=== PATIENT | female | born 1960 | race Caucasian/White ===

== ENCOUNTER → 2021-03-27 09:12 | Outpatient (BNVA) | payer MEDICARE, SELFPAY | PROVIDERS: Visit Provider Orthopaedic Surgery | DX: M47.896 Other spondylosis, lumbar region (principal); M54.5 Low back pain | CPT/HCPCS: 72110 ==

== ENCOUNTER → 2021-05-09 11:00 | Outpatient (BNVA) | payer MEDICARE, SELFPAY | PROVIDERS: Visit Provider Orthopaedic Surgery | DX: Z01.818 Encounter for other preprocedural examination (principal) | CPT/HCPCS: 87635 ==

== ENCOUNTER → 2021-05-09 | Day surgery (SDC) | payer MEDICARE, SELFPAY ==
[2021-05-09 13:07] VITALS: BMI 34.0
[2021-05-09 13:30] LABS: Anion Gap 12.7 (5-19); Blood Urea Nitrogen 12 mg/dL (8-23); Calcium 8.6 mg/dL (8.5-10.5); Chloride 83 mmol/L (98-107); Glomerular Filtration Rate 125.4 mL/min (90-130); Glucose 93 mg/dL (65-115); Osmolality Calculated 277 mOsm/kg (285-295); Sodium 134 mmol/L (136-145)
[2021-05-09 13:36] LABS: Potassium 2.7 mmol/L (3.5-5.1)
--- NOTE | 2021-05-09 13:36 | P.ANESASSM_ITS ---
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 leone's office has the pulmologist's clearance lettt er Metabolic: Comments: hypokalemic (K+ on 2.7) on furosemide (for leg swelling) - patient informed she needs to call her [place] doctor to get oral supplements Asked if she can go to ER if she's unable to get a perscription. Musc/skel: Musc/skel: Lower Back Pain Anesthetic Plan: ASA status: 3 Risk of > 500 ml blood loss (7ml/kg in children): No PFSH Anesthesia PFSH: Family History Other Cancer Diabetes Social History Smoking and tobacco status: former smoker Alcohol intake: former Marital status: Number of children: 2 service: No History of recent travel: No Data Anesthesia CBC & Chem 7: 05/09/21 12:55 Other Labs: Laboratory Results - last 48 hr 05/09/21 12:55 Anion Gap 12.7 BUN 12 Creatinine 0.5 GFR Calculation 125.4 Glucose 93 Calcium 8.6 Cardiac Studies: No Data to Display
[2021-05-09 13:38] LABS: Carbon Dioxide 41 mmol/L (22-29)
--- NOTE | 2021-05-09 13:50 | SUR.PREOP ---
Anesthesia informed of critical serum potassium and Co2 levels. Doctor Pitts in to evaluate patient.
== END ==
PROVIDERS: Anesthesiology; Visit Provider Orthopaedic Surgery
DX: Z01.818 Encounter for other preprocedural examination (principal)
CPT/HCPCS: 80048

== ENCOUNTER → 2021-08-01 10:12 | Outpatient (BNVA) | payer MEDICARE, SELFPAY | PROVIDERS: Visit Provider Orthopaedic Surgery | DX: Z01.812 Encounter for preprocedural laboratory examination (principal); Z20.822 Contact with and (suspected) exposure to COVID-19 | CPT/HCPCS: 87635 ==

== ENCOUNTER 2021-08-06 17:01 | Inpatient (IN) | payer MEDICARE, SELFPAY ==
[2021-08-01 12:25] VITALS: BMI 35.2
--- NOTE | 2021-08-01 13:00 | ANES.PREANE2 ---
Pre-Anesthetic Assessment Pre-Anesthetic Assessment: Height/Weight: Height 1.63 m Weight 92.986 kg Preop Diagnosis: Back pain Proposed Procedure: Operation Date: 08/06/21 07:00 Proposed Procedures p [id number] PSF 35633, 39219, 31582, 44059,49987 69570, 91597, 05933 M47.26(Not Applicable) - Montez Leone, DO Familial anesthetic complications: none Social: Social History: No alcohol and No tobacco Exam: Pre-Anes Outpt Exam: alert, oriented x 3, clear to auscultation bilaterally and regular rate & rhythm Airway: Cervical ROM: WNL MP: 2 Dentition: Chipped Pulmonary: Pulmonary: COPD Comments: COPD - pulmonlogist cleared her for surgery in may Metabolic: Comments: hypokalemic (K+ on 2.7) on furosemide (for leg swelling) - patient informed she needs to call her [place] doctor to get oral supplements Asked if she can go to ER if she's unable to get a perscription. Musc/skel: Musc/skel: Lower Back Pain Anesthetic Plan: ASA status: 3 Anesthesia: General Risk of > 500 ml blood loss (7ml/kg in children): No PFSH Anesthesia PFSH: Family History Other Cancer Diabetes Social History Smoking and tobacco status: former smoker Alcohol intake: former Marital status: Number of children: 2 service: No History of recent travel: No Data Anesthesia CBC & Chem 7: 08/01/21 12:45 Cardiac Studies: No Data to Display
[2021-08-01 13:11] LABS: Anion Gap 13.6 (5-19); Blood Urea Nitrogen 14 mg/dL (8-23); Calcium 8.8 mg/dL (8.5-10.5); Carbon Dioxide 32 mmol/L (22-29); Chloride 89 mmol/L (98-107); Glomerular Filtration Rate 101.6 mL/min (90-130); Glucose 99 mg/dL (65-115); Osmolality Calculated 273 mOsm/kg (285-295); Potassium 3.6 mmol/L (3.5-5.1); Sodium 131 mmol/L (136-145)
[2021-08-06] VITALS (32 sets, daily range): BP systolic 72–160; BP diastolic 40–126; PULSE 75–111; RESP 16–46; TEMP 36.5–37.2; O2SAT 94–100
--- NOTE | 2021-08-06 | SCC_ITS ---
Procedure Done: 1. T11 - Pelvis fusion 2. T11 - S1 instrumentation 3. Lumbo pelvis fixation (instrumentation) 4. Bilateral L3/4 laminectomy with partial facetectomies and foraminotomies 5. Bilateral L4/5 laminectomy with partial facetectomies and foraminotomies 6. Bilateral L5/S1 laminectomy with partial facetectomies and foraminotomies 55 seconds of fluoroscopic guidance, for a cumulative dose of 208.8 mGy, was provided to Dr. Leone by the radiology department. C-arm images of the lumbar spine were saved for the patient's permanent record. [facility] HOSPITALCasandra
--- NOTE | 2021-08-06 | XR_ITS ---
WS: [id number] Lumbar spine, C-arm fluoroscopy, 08/06/2021 Clinical Data: PLF Comparison: None. Findings: Dr. Leone performed an extensive thoracolumbar posterior fusion. XR/XR lumbar spine 1V [id number] Impression: Thoracolumbar posterior fusion.
[2021-08-06] MEDS: sodium chloride 0.9% 1,000 ML 30 ML IV (06:25)
--- NOTE | 2021-08-06 06:52 | P.HP_ITS ---
Providers/Chief Complaint Chief Complaint: [id number] PSF [id number], 01687, 44118, [id number] 20 History of Present Illness Nova Dobbs is a 60 year old femaleChief Complaint: low back pain Onset: year Duration: year Characteristics: burning,cramping Severity: 10 Location: low back mid back near stimulator placement Radiating symptoms: numbness and tingling, lateral lower extremities into feet. Aggravating factors: everything, laying flat Alleviating factors: oral pain medication with relief for a few hours Neuro deficits: denies incontinence of bowel/bladder, saddle anesthesia. Prior tx: nerve stimulator with relief to left side , epidural injection with short term relief, physical therapy stopped due to pain Review of Systems 2 Narrative: General ROS: negative for weight changes, fever ENT ROS: negative for nasal congestion, drainage or bleeding, sore throat, dysphagia or ear pain Eyes: PERRL Hematological and Lymphatic ROS: negative for swollen glands or abnormal bleeding Endocrine ROS: negative for polyuria/polydpsia or new changes in weight Respiratory ROS: negative for cough, shortness of breath, or wheezing Cardiovascular ROS: negative for chest pain or dyspnea on exertion Gastrointestinal ROS: negative for reflux, abdominal pain, change in bowel habits, or black or bloody stools Musculoskeletal ROS: negative for back pain, neck pain, or joint pain or swelling except for current problem Neurological ROS: negative for TIA or stoke symptoms Skin: no rashes Medications/Allergies Home Medications Medication Instructions Recorded Confirmed Last Taken Type fluoxetine 10 mg capsule 10 mg PO DAILY 03/27/21 08/06/21 08/06/21 05:00 History furosemide 40 mg tablet 40 mg PO DAILY 03/27/21 08/06/21 08/05/21 08:00 History gabapentin 400 mg capsule 400 mg PO TID 03/27/21 08/06/21 08/06/21 05:00 History hydrocodone 10 mg-acetaminophen 10 tab PO BID PRN 03/27/21 08/06/21 08/06/21 05:00 History 325 mg tablet methocarbamol 750 mg tablet 750 mg PO TID PRN 03/27/21 08/06/21 08/06/21 05:00 History ropinirole 4 mg tablet 4 mg PO BID 03/27/21 08/06/21 08/06/21 05:00 History albuterol [Ventolin] See Rx Instructions .ROUTE .COMPLEX 05/09/21 08/06/21 08/06/21 05:00 History metolazone 2.5 mg PO EVERY OTHER DAY 05/09/21 08/06/21 08/06/21 05:00 History estradiol mg 08/01/21 08/06/21 05:00 History fluticasone propion-salmeterol INHALATION 08/01/21 08/06/21 05:00 History [Wixela Inhub] potassium chloride meq PO 08/01/21 08/06/21 05:00 History [id number] Bone growth stimulator #1 ea 08/03/21 Unknown Rx Allergies Allergy/AdvReac Type Severity Reaction Status Date / Time latex Allergy ALGY-Bliste Verified 05/09/21 12:19 r PFSH Acute PFSH: Family History Other Cancer Diabetes Social History Smoking and tobacco status: former smoker Alcohol intake: former Marital status: Number of children: 2 service: No History of recent travel: No Vitals/I&O/Wt Last Vital Signs Temp 98.4 F 08/06/21 06:05 Pulse 75 08/06/21 06:05 Resp 16 08/06/21 06:05 BP 118/59 08/06/21 06:05 Pulse Ox 94 08/06/21 06:05 Physical Exam Narrative: EXAM NARRATIVE: CONSTITUTIONAL: The patient is a normal appearing [] in no apparent distress. GENERAL: Patient in no acute distress. CARDIAC: Regular rate and rhythm. CHEST: Normal inspiratory effort, normal respiratory rate. ABDOMEN: Soft and nontender. SKIN: Clear, warm and intact. NEURO?PSYCH: The patient is alert and oriented to person, place and time. Sensorv /SILT Motor StrengthShoulder abduction C5 5/5Wrist extension C6 5/5Elbow extension C7 5/5Hand [employer] Chair C8 5/5Finger abduction T15/5 Radial/ Ulnar/ Median n intact LowerSensory (SILT)Motor StrengthHin flexion L2/3Ant/inner thigh 5/5Hip adduct ion L2/3 5/5Knee extension L4 Lat thigh, 5/5Toe dorsiflexion L5 5/5Ankle dorsiflexion L5/ [id number] flexion S1 5/5 DTRBleeps 2+Triceps 2+Brachioradialis 2+Patellar 2+Achilles 2+ MUSCULOSKELETAL: [] UPPEREXTREMITIES: The patient had full active ROM in fingers, wrist, elbow, and shoulder. The patient demonstrated ability to fully flex/extend/abduct/adduct fingers, make ok sign, cross 2nd/3rd digits, extend 1st digit fully.. Radial pulse 2+, CR<2 seconds. LOWER EXTREMITIES: Pt has full, active ROM of toes, ankle, knee, and hip. Dorsalis pedis/posterior tibialis pulses 2+, CR<2 seconds. SPINE: Skin warm, dry, intact. 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 She has failed all conservative therapy including nerve stimulator which helps on the left side only. Patient has severe back pain. At this point my plan is to do a T10 to the pelvis posterior spine fusion. With PLIFs at L3-4 L4-5 and L5-S1. Discussed the possibility of having to remove the nerve stimulator during surgery. Patient understood and agreed to proceed with surgery. I am going to send her to Dr. Acosta for a medical work-up to ensure that she is medically stable for surgery. Risks and benefits of surgery including but not limited to bleeding infection scar pain damage to blood vessels nerves risk for the surgery and anesthesia risk. Attestations Medical Necessity Statement*: failed conservative tx Coding Level of Care Code Acute Dictating Machine Transcriber for Daquan Fontaine
--- NOTE | 2021-08-06 06:59 | P.HPUD_ITS ---
Surgery/Procedure H&P Update DATE OF PROCEDURE: August 06, 2021 DATE H&P PERFORMED: 08/06/21 PREOP DIAGNOSIS: degenerative scoliosis PLANNED PROCEDURE: Operation Date: 08/06/21 07:00 Proposed Procedures p [id number] PSF 30230, 20248, 33851, 54020,67786 27571, 81066, 66596 M47.26(Not Applicable) - Montez Leone DO
--- NOTE | 2021-08-06 06:59 | W.PM.OPSUD ---
Surgery/Procedure H&P Update DATE OF PROCEDURE: August 06, 2021 DATE H&P PERFORMED: 08/06/21 PREOP DIAGNOSIS: degenerative scoliosis PLANNED PROCEDURE: Operation Date: 08/06/21 07:00 Proposed Procedures p [id number] PSF 12003, 46546, 67249, 67174,28570 22769, 36054, 03524 M47.26(Not Applicable) - Montez Leone DO
--- NOTE | 2021-08-06 08:01 | P.ANESUD_ITS ---
Pre-Anesthetic Update Pre-Anesthetic Assessment: Date of Surgery/Procedure: 08/06/21 Preop Marycarmen gnosis: degenerative scoliosis Proposed Procedure: Operation Date: 08/06/21 07:00 Proposed Procedures p [id number] PSF 13786, 15592, 12393, 78639,43489 85633, 51208, 38001 M47.26(Not Applicable) - Montez Leone, DO Any changes to Pre-Anesthetic Assessment?: No Last Intake: Intake Last Liquid Date 08/05/21 Last Liquid Time 22:00 Last Solid Date 08/05/21 Last Solid Time 22:00 Vitals: Temperature 98.4 F 08/06/21 06:05 Temperature Source Temporal Artery S can 08/06/21 06:05 Pulse Rate 75 08/06/21 06:05 Pulse Rhythm 08/06/21 06:07 Respiratory Rate 16 08/06/21 06:05 Blood Pressure 118/59 08/06/21 06:05 Blood Pressure Chrissie n 78 08/06/21 06:05 Pulse Oximetry 94 08/06/21 06:05 Oxygen Delivery Me thod 08/06/21 06:07 Exam: Pre-Anes Outpt Exam: alert, oriented x 3, clear to auscultation bilaterally and regular rate & rhythm Cardiac Studies: No Data to Display
[2021-08-06] MEDS: heparin, porcine 1,000 unit/mL INJ 10 mL 10000 UNIT IRRIGATION (09:16)
[2021-08-06] MEDS: vancomycin 1,000 MG SDV 2000 MG XX (09:17)
[2021-08-06 10:26] LABS: Hematocrit 34.5 % (37.0-47.0); Hemoglobin 10.8 g/dL (11.5-15.3)
[2021-08-06 12:13] LABS: Hematocrit 32.2 % (37.0-47.0)
[2021-08-06 13:45] LABS: Hematocrit 30.6 % (37.0-47.0); Hemoglobin 9.5 g/dL (11.5-15.3)
--- NOTE | 2021-08-06 15:20 | P.OP_ITS ---
Operative Report Date of procedure: August 06, 2021 Pre-op Diagnosis: degenerative scoliosis Post-op diagnosis: same Procedure Done: 1. T11 - Pelvis fusion 2. T11 - S1 instrumentation 3. Lumbo pelvis fixation (instrumentation) 4. Bilateral L3/4 laminectomy with partial facetectomies and foraminotomies 5. Bilateral L4/5 laminectomy with partial facetectomies and foraminotomies 6. Bilateral L5/S1 laminectomy with partial facetectomies and foraminotomies 7. Use of computer navigation 8. Use of Microscope for decompression 9. Bone Marrow aspirate from Right iliac crest 10. use of allograft 11. use of autograft Surgeon: Montez Leone Health Data Administrator: Jony Paz Health Data Administrator: HERNAN Bell was needed in order to perform the procedure safely he assisted me under the microscope and was able to retract the dural sac while I was performing decompressions. He also helped with placement of pedicle screws by retracting he also helped with positioning of the patient on the bed and taken off the bed and closing the wound. Anesthesia: General Estimated blood loss (mL): 1,000 Condition: stable Disposition: PACU Procedure: 1. T11 - Pelvis fusion 2. T11 - S1 instrumentation 3. Lumbo pelvis fixation (instrumentation) 4. Bilateral L3/4 laminectomy with partial facetectomies and foraminotomies 5. Bilateral L4/5 laminectomy with partial facetectomies and foraminotomies 6. Bilateral L5/S1 laminectomy with partial facetectomies and foraminotomies 7. Use of computer navigation/ stereotactic 8. Use of Microscope for decompression 9. Bone Marrow aspirate from Right iliac crest 10. use of allograft 11. use of autograft Patient was brought to the operative suite after undergoing anesthesia was placed into the prone position. Patient had neuro monitoring attached. Patient was monitored throughout the entire case with no issues. Patient was positioned with all areas impingement well-padded. Patient was then prepped and draped in normal sterile fashion. Skin incision was made from T11 down to the sacrum. Thoracolumbar fascia was identified and then subperiosteal dissection was made from T11 down to the sacral ala. Subperiosteal dissection was made out to the transverse processes of all these levels as well. Once this was completed then attention was brought to placing the regenicel aspiration kit. This was placed into the right iliac wing. Approximately 20 cc of bone marrow aspirate was aspirated from the right iliac wing. Next attention was brought to placing the fiducials into the right iliac crest. The C arm was then used to spin around the patient in order to facilitate getting the data fed into the computer in order to use computer navigation. The pedicle screws were then placed. This was done starting at the iliac crest. A sacral ala iliac screw was then placed bilaterally. This was done by using the gearshift probe which was linked to the computer navigation. Followed by the pedicle wall feeler. Followed by placing the screw which is also linked to the computer navigation system. Once the screws were placed then attention was brought to placing the S1 screws this was done also by using the gearshift linked to the computer navigation followed by the pedicle wall feeler. Followed by placing the screw that was linked to the computer navigation. This process was repeated all the way up to the T11 pedicle placing the screws in L5 L4 L3 was skipped on the left side L2 was skipped on the right side. Careful attention was brought to keeping the patient's neurostimulator intact throughout the entire case. Pedicle screws were then stimulated and found to be in good position. Next attention was brought to performing the laminectomies. This was done starting at L5-S1. High-speed bur was used to thin the lamina and medial aspect s of facet joints. And then a Kerrison rongeur was used to take down the ligamentum flavum and medial aspect of facet joints bilaterally. As well as taking out the entire lamina. Foramen were opened with the Kerrison rongeurs as well. This process was repeated at L4-5 taking the lamina down with a high- speed bur medial aspect of facet joints Kerrison rongeur and ligamentum flavum were taken down. And then L3-4 this process was again repeated. Once the lamina and ligamentum flavum were taken down from L3-4 and in the medial aspect of the facet joints were opened up and the foramina were opened up bilaterally attention was then brought to placed in the rods. Rods were connected from the sacral ala iliac screw all the way up to T11. Distraction was performed at L4-5 in order to facilitate opening at this foramen. Once this was completed the wounds were irrigated and then the lamina were decorticated down to L2. And then the TPs from L1 down to the sacral ala were decorticated. The osteoamp bone graft fibers and strips were then used in the lateral gutters and lamina. AP fluoroscopy ensured that the alignment and hardware in good position. Vancomycin powder was placed as well as a deep drain. And the wound was closed in layered fashion from the thoracolumbar fascia for the skin. Skin was closed with 2-0 Vicryl and Monocryl suture and Steri-Strips. A Silverlon dressing was used to seal this wound off. Patient was then transferred to the PACU in stable condition.
--- NOTE | 2021-08-06 15:44 | ANE.PACU2 ---
Inpatient post-anesthesia follow up: Airway intact: Yes Vital signs: Temperature 98.4 F Pulse Rate 75 Respiratory Rate 16 Blood Pressure 118/59 Pulse Oximetry 94 Oxygen Delivery Me thod Room Air Oxygen Flow Rate Fraction of Inspir ed Oxygen Hydration adequate: Yes Nausea and vomiting: No Pain level: 3 Mental status: Baseline
--- NOTE | 2021-08-06 16:17 | PM.CONSULT ---
Providers/Reason For Consult Consulting Physician/Specialty*: Dr. garcia Reason for Consult*: copd Attending Physician: Montez Garcia, DO History of Present Illness History of Present Illness Nova Dobbs is a 60 year old female with a past medical history of COPD, not on chronic oxygen, chronic back pain, neuropathy, who [facility] for T11 pelvis fusion for degenerative scoliosis by Dr. Garcia. Patient was seen in postoperative recovery, she is following basic commands, however is still not effective Dilaudid and fentanyl, she is complaining of back pain that she wants to get up and sit, denies any chest pain, no shortness of breath, currently on 3 to 4 L nasal cannula, afebrile, normotensive. Review of Systems Const: Denies: fever(s) Card: Denies: chest pain Resp: Denies: dyspnea Musc: Reports: back pain Meds/Allergies Home Medications and Allergies Home Medications Medication Instructions Recorded Confirmed Last Taken Type fluoxetine 10 mg capsule 10 mg PO DAILY 03/27/21 08/06/21 08/06/21 05:00 History furosemide 40 mg tablet 40 mg PO DAILY 03/27/21 08/06/21 08/05/21 08:00 History gabapentin 400 mg capsule 400 mg PO TID 03/27/21 08/06/21 08/06/21 05:00 History hydrocodone 10 mg-acetaminophen 10 tab PO BID PRN 03/27/21 08/06/21 08/06/21 05:00 History 325 mg tablet methocarbamol 750 mg tablet 750 mg PO TID PRN 03/27/21 08/06/21 08/06/21 05:00 History ropinirole 4 mg tablet 4 mg PO BID 03/27/21 08/06/21 08/06/21 05:00 History albuterol [Ventolin] See Rx Instructions .ROUTE .COMPLEX 05/09/21 08/06/21 08/06/21 05:00 History metolazone 2.5 mg PO EVERY OTHER DAY 05/09/21 08/06/21 08/06/21 05:00 History estradiol mg 08/01/21 08/06/21 05:00 History fluticasone propion-salmeterol INHALATION 08/01/21 08/06/21 05:00 History [Wixela Inhub] potassium chloride meq PO 08/01/21 08/06/21 05:00 History [id number] Bone growth stimulator #1 ea 08/03/21 Unknown Rx Allergies Allergy/AdvReac Type Severity Reaction Status Date / Time latex Allergy Luis Daniel Verified 05/09/21 12:19 r Current Medications Current Medications Generic Name Dose Route Start Last Admin Trade Name Freq PRN Reason Stop Dose Admin Sodium Chloride 1,000 mls @ 30 mls/hr 08/06/21 06:00 08/06/21 06:25 Sodium Chloride 0.9% IV 08/07/21 05:59 30 mls/hr .Q24H URBAN Administration PFSH Acute PFSH: Medical History COPD (chronic obstructive pulmonary disease) Gall bladder disease Status post insertion of nerve stimulator 2018 Surgical History History of section History of cholecystectomy History of hysterectomy History of spinal surgery History of tubal ligation Family History Other Cancer Diabetes Social History Smoking and tobacco status: former smoker Alcohol intake: former Marital status: Number of children: 2 service: No History of recent travel: No Vitals/I&O/Wt Last Vital Signs Temp 98.4 F 08/06/21 06:05 Pulse 75 08/06/21 06:05 Resp 16 08/06/21 06:05 BP 118/59 08/06/21 06:05 Pulse Ox 94 08/06/21 06:05 08/06/21 08/06/21 08/06/21 06:59 14:59 22:59 Intake Total 120 / 120 2100 / 2220 Output Total 1750 / 1750 Balance 120 / 120 350 / 470 Physical Exam Const: COMMON NORMALS: no acute distress ORIENTATION/CONSCIOUSNESS: Yes awake and Yes oriented to person; not oriented to place and not oriented to time Eye: COMMON NORMALS: Equal, round and reactive pupils present and EOMs intact bilaterally GENERAL EYE: appearance normal, both eyes and all related structures PUPIL: Yes Equal, round and reactive pupils present Neck/C-Spine: COMMON NORMALS: full ROM, no lymphadenopathy and Thyroid normal THYROID: Thyroid normal Lymph: LYMPHATIC: no lymphadenopathy noted Resp: COMMON NORMALS: normal respiratory effort, No retractions, No use of accessory muscles and clear to auscultation bilaterally AUSCULTATION: clear to auscultation bilaterally Cardio: COMMON NORMALS: regular rate, regular rhythm, S1 normal heart sound present and S2 normal heart sound present RATE: regular rate RHYTHM: regular rhythm HEART SOUNDS: S1 normal heart sound present and S2 normal heart sound present GI: COMMON NORMALS: Normal to inspection, nondistended, normoactive bowel sounds present, Soft to palpation, non-tender and No hepatosplenomegaly present PALPATION: Yes Soft to palpation and Yes No hepatosplenomegaly present Extremity: COMMON NORMALS: normal to inspection, full ROM and no pedal edema Neuro: COMMON NORMALS: moves all extremities and no focal motor deficits SENSORIUM/ORIENTATION: Yes oriented to person, No oriented to place and No oriented to time Urinary Catheter Management^: Latex Free: Cath Placed During This Visit: yes Urinary Catheter Date of Insertion: 08/06/21 Urinary Catheter Time of Insertion: 08:45 A&P Assessment and plan (1) COPD (chronic obstructive pulmonary disease): Status: Acute (2) Degenerative scoliosis in adult patient: -Status post T11 to pelvis fusion by Dr. Garcia postop day 0 -estimated blood loss was a liter -Postoperative hemoglobin 9.5 -Has received albumin, fluid therapy, was on mary, blood pressure 104/70 -currently in postop recovery Plan: -Monitor under medical floors, monitor vitals closely -Monitor respiratory status, monitor for fluid overload -We will check hemoglobin in the evening -Pain control and anticoagulation as per orthopedic team -Continue DuoNeb -Oxygen therapy, consult respiratory therapy Status: Acute Coding Level of Care Code Acute Kier Drier for [facility] Fwd Diagnoses COPD (chronic obstructive pulmonary disease) J44.9 Degenerative scoliosis in adult patient M41.80
[2021-08-06] MEDS: calcium chloride 10% Syr 10 mL 1 GM IVP (16:22)
--- NOTE | 2021-08-06 16:27 | XR_ITS ---
WS: [id number] XR abdomen 1V* [id number] REASON FOR EXAM: procedure related- looking for hardware. screw lost. FINDINGS: Multiple pedicle screws in place from the sacrum to T11. Multilevel laminectomy. Battery pack overlying the left iliac wing connected to dorsal column stimulator leads that are at th e T10 level. No other hardware identified. XR/XR abdomen 1V* [id number] IMPRESSION: Normal surgical appliance, lumbar spine, as above.
--- NOTE | 2021-08-06 16:28 | XR_ITS ---
WS: [id number] XR chest 1V portable [id number] REASON FOR EXAM: procedure related- looking for hardware. screw lost. FINDINGS: The heart and mediastinum are within normal limits. Costophrenic angle opacity which may represent atelectasis. No other significant pulmonary parenchymal or pleural abnormality. Proximal end of the spinal fixation with multiple pedicle screws. Dorsal column stimulator leads at T 10. No other hardware identified. XR/XR chest 1V portable [id number] IMPRESSION: Appropriate spinal hardware.
[2021-08-06] MEDS: HYDROmorphone 1 mg/mL INJ 1 mL 0.5 MG IVP (16:30)
--- NOTE | 2021-08-06 17:03 | SUR.PHASEI ---
1511 pPT TO PACU AWAKE ROLLING IN BED COMPLAINS OF PAIN TO BACK STATES ( I WANT TO SIT UP) SEE MEDS GIVEN BY ENDER TRUJILLO BP LOW
--- NOTE | 2021-08-06 17:14 | SUR.PHASEI ---
1600 SEE ALBUMIN 240 ML STARTED BY PUMP BY ANESTHESIA DR GUTIERREZ FOR LOW BP IV FLUID W/O RATE WELL, SUERO TO DD WITH SMALL AMT YELLOW URINE NOTED , HEMAVAC DRAIN EMPTIED OF 100ML AND COMPRESSED DR BUNCH AWARE. 1622 DR GUTIERREZ AT BEDSIDE ORDERS FOR MORE DILAUDID PRESSURES IN 90 SYS TOLIC NOW, AND CALCIUM CLORIDE SEE MEDS GIVEN ORDERED CACL 1GRAM IVP SLOW OVER 14 MINUTES GIVEN 1630 DILAUDID 0.5MG IVP AND X RAYS OF CHEST AND ABD DONE ORDERED BY DR BUNCH. 1645 ART LINE OUT INTACT AND PRESSURE HELD X 10 MINUTES AND PRESSURE DRESSING TO SITE. 1711 PT MORE ALERT PRESSURES BETTER, ALERT Taking ice chips states pain is better but stll there, report called to floor and pt family updated and sent to pt room, pt to floor per bed with rRN
[2021-08-06] MEDS: docusate sodium 100 mg Capsule PO (18:00)
[2021-08-06] MEDS: lactated ringers 1,000 ML 90 ML IV (18:00)
[2021-08-06] MEDS: ropinirole 2 mg Tablet 4 MG PO (18:01)
[2021-08-06] MEDS: HYDROcodone-acetaminophen 5-325 mg Tablet PO ×2 (18:01→22:05)
[2021-08-06] MEDS: ketorolac 30 mg/mL INJ IVP (19:09)
--- NOTE | 2021-08-06 20:03 | PC.NURSE ---
NEUROVASCULAR CHECK c/o some numbness/tingling in left leg but says this is normal and nothing new
[2021-08-06] MEDS: gabapentin 400 mg Capsule PO (20:43)
[2021-08-07] VITALS (14 sets, daily range): BP systolic 95–128; BP diastolic 43–72; PULSE 84–104; RESP 16–20; TEMP 36.6–37; O2SAT 93–99
[2021-08-07] MEDS: HYDROcodone-acetaminophen 5-325 mg Tablet PO ×6 (02:19→23:14)
[2021-08-07] MEDS: ketorolac 30 mg/mL INJ IVP ×2 (02:23→11:34)
[2021-08-07 02:33] LABS: Basophils % 0.2 %; Hematocrit 23.8 % (37.0-47.0); Hemoglobin 7.2 g/dL (11.5-15.3); Lymphocytes % 9.1 %; Mean Corpuscular HGB Conc 30.3 g/dL (30.0-36.0); Mean Corpuscular Hemoglobin 30.4 pg (28.0-34.0); Mean Corpuscular Volume 100.4 fl (81-99); Mean Platelet Volume 9.5 fL (7.4-10.4); Monocytes # 0.7 10^3/uL (0.2-0.9); Monocytes % 6.7 %; Neutrophils # 8.78 10^3/uL (1.8-7.7); Neutrophils % 82.9 %; Nucleated Red Blood Cells % 0 %; Platelet Count 206 10^3/cmm (130-400); Red Blood Count 2.37 10^6/uL (4.1-5.3); Red Cell Distribution Width 14.4 % (12.1-15.1); White Blood Count 10.6 10^3/uL (4.0-10.0)
[2021-08-07 02:58] LABS: NT Pro B Type Natriuretic Pept 144 pg/mL (0-125)
[2021-08-07 03:16] LABS: Alanine Aminotransferase 9 U/L (0-33); Albumin Level 2.8 g/dL (3.5-5.2); Alkaline Phosphatase 58 IU/L (35-105); Anion Gap 11.8 (5-19); Aspartate Amino Transferase 17 U/L (0-32); Blood Urea Nitrogen 16 mg/dL (8-23); Calcium 7.6 mg/dL (8.5-10.5); Carbon Dioxide 24 mmol/L (22-29); Chloride 105 mmol/L (98-107); Globulin 1.9 g/dL (1.3-4.6); Glomerular Filtration Rate 125.4 mL/min (90-130); Glucose 131 mg/dL (65-115); Osmolality Calculated 285 mOsm/kg (285-295); Potassium 4.8 mmol/L (3.5-5.1); Sodium 136 mmol/L (136-145); Total Bilirubin 0.2 mg/dL (0.15-1.2); Total Protein 4.7 g/dL (6.6-8.7)
[2021-08-07] MEDS: lactated ringers 1,000 ML 90 ML IV (04:57)
[2021-08-07] MEDS: enoxaparin 40 mg/0.4 mL Syringe SUBCUT (05:54)
--- NOTE | 2021-08-07 06:46 | PC.NURSE ---
SHIFT SUMMARY Started out shift with c/o alot of pain in back. Has gotten better through the night with receiving po Hydrocodone q4h and also had IV Toradol as well. Repositioning also helps with pain. Says she had been dealing with back pain for a long time now and is sure hoping this surgery is going to help. Dressing to medial back D&I. Hemovac drain intact and has had 360ml sanguinous drainage this shift. IV fluids infusing at 90ml/hr rate. Receiving postop doses of IV antibiotics as ordered. Good output per Baig and is taking po well.
--- NOTE | 2021-08-07 07:00 | XR_ITS ---
WS: [id number] XR chest 1V portable [id number] REASON FOR EXAM: sob FINDINGS: Compared to the previous examination of 08/06/2021 the lung bases are better aerated with resolving of most small areas of atelectasis. Lungs are fully inflated with no interval infiltrates. The heart and mediastinum are within normal limits. XR/XR chest 1V portable [id number] IMPRESSION: Stable chest with no acute abnormality as above.
[2021-08-07] MEDS: fluoxetine 10 mg Capsule PO (07:52)
[2021-08-07] MEDS: docusate sodium 100 mg Capsule PO ×2 (07:52→15:53)
[2021-08-07] MEDS: FUROsemide 40 mg Tablet PO (07:53)
[2021-08-07] MEDS: gabapentin 400 mg Capsule PO ×3 (07:53→20:41)
--- NOTE | 2021-08-07 07:56 | P.PN_ITS ---
Documented by User: HERNAN Bell 08/08/21 07:00 Subjective Subjective: Interval history: POD 1 Reported no complaints this morning. Her back was sore legs were better. Family was present. She denied any chest pain denied any shortness of breath denied any dizziness. Vitals/I&O/Wt Last Vital Signs Temp 97.8 F 08/07/21 05:17 Pulse 84 08/07/21 05:17 Resp 18 08/07/21 05:17 BP 112/56 08/07/21 05:17 Pulse Ox 95 08/07/21 05:17 08/06/21 08/07/21 08/07/21 22:59 06:59 14:59 Intake Total 3075.5 / 3195.5 1725.5 / 4921.0 Output Total 2039 / 2039 840 / 2880 Balance 1035.5 / 1155.5 885.5 / 2041.0 Weight last 48 hrs Weight 208 lb 14.4 oz Physical Exam Narrative: EXAM NARRATIVE: She had good sensation light touch in both lower extremities. She is wiggling all digits. She was firing in all motor groups. Dorsalis pedis and posterior tib pulses were palpable. SCDs were present calves are supple. Incision was clean and dry. Hemovac drain was intact. Urinary Catheter Management^: Latex Free: Cath Placed During This Visit: yes Reason for Continuing Indwelling Catheter: Required Immobilization for Trauma or Surgery or Anesthesia Urinary Catheter Date of Insertion: 08/06/21 Urinary Catheter Time of Insertion: 08:45 Data : 08/08/21 01:55 08/08/21 01:55 A&P Assessment and plan (1) Acute blood loss as cause of postoperative anemia: Encourage her to begin mobilizing today with physical therapy. Up in the chair encouraged incentive spirometry for pulmonary toilet. Work on laxative of choice for bowel movement. We will have her Baig catheter discontinued as well as Hemovac drain. Repeat an H&H for the a.m. Status: Acute (2) Degenerative scoliosis in adult patient: Status: Acute (3) Fusion of spine: Status: Acute Attestations Medical Necessity Statement*: defer to medical team Coding Level of Care Code Acute Life Skills Specialist for [facility] Diagnoses Acute blood loss as cause of postoperative anemia D62 Degenerative scoliosis in adult patient M41.80 Fusion of spine M43.20 Documented by User: Montez Leone DO 08/08/21 07:06 Physical Exam Urinary Catheter Management^: Latex Free: Cath Placed During This Visit: no Data : 08/08/21 01:55 08/08/21 01:55 A&P Assessment and plan (1) Fusion of spine: patient seen and examined agree with above Status: Acute Coding Level of Care Code Acute Life Skills Specialist for [facility] Diagnoses Acute blood loss as cause of postoperative anemia D62 Degenerative scoliosis in adult patient M41.80 Fusion of spine M43.20
[2021-08-07] MEDS: ropinirole 2 mg Tablet 4 MG PO ×2 (09:04→15:53)
--- NOTE | 2021-08-07 09:41 | PC.PHAR ---
pt states she takes care of her own medications-pt states she is unsure if the metolazone was dced ext med history shows last filled on 07/13/21 30d/s for 2.5mg every other day-pt states she finished her prednisone and doxycycline filled on 07/20/21-notes are made in the pharmacy comments
--- NOTE | 2021-08-07 10:09 | PC.NURSE ---
rcvd verbal order from Dr Mata for Miralax 17gm PO Daily PRN. technical publications writer put order in.
[2021-08-07 10:23] LABS: Basophils % 0.2 %; Eosinophils % 0.1 %; Lymphocytes # 1.5 10^3/uL (0.8-4.8); Mean Corpuscular HGB Conc 29.5 g/dL (30.0-36.0); Mean Corpuscular Hemoglobin 29.8 pg (28.0-34.0); Mean Corpuscular Volume 100.9 fl (81-99); Mean Platelet Volume 9.7 fL (7.4-10.4); Monocytes # 0.4 10^3/uL (0.2-0.9); Monocytes % 4.4 %; Neutrophils # 6.77 10^3/uL (1.8-7.7); Neutrophils % 76.8 %; Nucleated Red Blood Cells % 0 %; Platelet Count 204 10^3/cmm (130-400); Red Blood Count 2.18 10^6/uL (4.1-5.3); Red Cell Distribution Width 14.4 % (12.1-15.1); White Blood Count 8.8 10^3/uL (4.0-10.0)
--- NOTE | 2021-08-07 10:43 | PC.NURSE ---
Rcvd verbal order from Dr Mata to stop LR.
[2021-08-07 10:50] LABS: Hemoglobin 6.5 g/dL (11.5-15.3)
--- NOTE | 2021-08-07 10:53 | PC.NURSE ---
notified Dr Mata that patient's Hgb is 6.5.
--- NOTE | 2021-08-07 11:46 | PC.NURSE ---
notified Dr King that patient refuses to let me remove evans catheter. she said I can later.
[2021-08-07] MEDS: sodium chloride 0.9% (100 ml) 100 ML 50 ML (15:47)
--- NOTE | 2021-08-07 15:58 | P.PN_ITS ---
Subjective Subjective: Interval history: Patient was seen this morning, she continues to complain of lower back pain, she has not had a bowel movement yet, she refuses to remove the Baig catheter due to his pain with ambulation, she complains of lightheadedness, denies any bloody or black stools, denies any history of GI bleeds, no history of EGD or colonoscopy, no history of anemia, history of blood transfusions, hemoglobin is down to 6.5 Vitals/I&O/Wt Last Vital Signs Temp 98.2 F 08/07/21 15:46 Pulse 95 08/07/21 15:46 Resp 18 08/07/21 15:46 BP 105/43 08/07/21 15:46 Pulse Ox 95 08/07/21 15:46 08/07/21 08/07/21 08/07/21 06:59 14:59 22:59 Intake Total 1725.5 / 4921.0 60 / 60 0 / 60 Output Total 840 / 2880 1000 / 1000 Balance 885.5 / 2041.0 -940 / -940 0 / -940 Weight last 48 hrs Weight 94.755 kg Physical Exam Const: COMMON NORMALS: no acute distress ORIENTATION/CONSCIOUSNESS: Yes awake, Yes oriented to person and Yes oriented to place Chest: COMMONS NORMALS: normal inspection of the chest Resp: COMMON NORMALS: normal respiratory effort, No retractions, No use of accessory muscles and clear to auscultation bilaterally AUSCULTATION: clear to auscultation bilaterally Cardio: COMMON NORMALS: regular rate, regular rhythm, S1 normal heart sound present and S2 normal heart sound present RATE: regular rate RHYTHM: regular rhythm HEART SOUNDS: S1 normal heart sound present and S2 normal heart sound present GI: COMMON NORMALS: Soft to palpation and non-tender INSPECTION: Yes normal to inspection and Yes abdominal distension AUSCULTATION: Yes normoactive bowel sounds PALPATION: Yes Soft to palpation Extremity: COMMON NORMALS: no pedal edema Neuro: SENSORIUM/ORIENTATION: Yes oriented to person and Yes oriented to place Urinary Catheter Management^: Latex Free: Cath Placed During This Visit: yes Reason for Continuing Indwelling Catheter: Required Immobilization for Trauma or Surgery or Anesthesia Urinary Catheter Date of Insertion: 08/06/21 Urinary Catheter Time of Insertion: 08:45 Data : 08/07/21 09:37 08/07/21 02:08 A&P Assessment and plan (1) COPD (chronic obstructive pulmonary disease): Status: Acute (2) Degenerative scoliosis in adult patient: -Status post T11 to pelvis fusion by Dr. Leone postop day 1 -estimated blood loss was a liter -Postoperative hemoglobin down to 6.5 Plan: -Monitor under medical floors, monitor vitals closely -Monitor respiratory status, monitor for fluid overload -Transfuse 1 unit PRBC, posttransfusion H&H -Pain control and anticoagulation as per orthopedic team -Continue DuoNeb, currently on 2 L, uses 2 L at home -Bowel regimen -Baig catheter removal -Oxygen therapy, consult respiratory therapy Status: Acute (3) Acute blood loss as cause of postoperative anemia: Status: Acute (4) Fusion of spine: Status: Acute Attestations Medical Necessity Statement*: Patient requires hospitalization for spinal fusion, with postoperative anemia Coding Level of Care Code Acute Senior Data Modeler for [facility] Fwd Diagnoses COPD (chronic obstructive pulmonary disease) J44.9 Degenerative scoliosis in adult patient M41.80 Acute blood loss as cause of postoperative anemia D62 Fusion of spine M43.20
[2021-08-07] MEDS: ipratropium-albuterol 3 mL Neb INHALATION (19:48)
[2021-08-07 21:16] LABS: Hematocrit 23.9 % (37.0-47.0); Hemoglobin 7.3 g/dL (11.5-15.3)
[2021-08-08] VITALS (18 sets, daily range): BP systolic 91–130; BP diastolic 47–84; PULSE 70–92; RESP 16–18; TEMP 36.4–37; O2SAT 94–100
[2021-08-08] MEDS: ketorolac 30 mg/mL INJ IVP ×3 (00:08→17:20)
[2021-08-08 02:36] LABS: Basophils # 0.1 10^3/uL (0.0-0.1); Basophils % 0.5 %; Eosinophils # 0.1 10^3/uL (0.0-0.8); Eosinophils % 1.5 %; Hematocrit 21.6 % (37.0-47.0); Hemoglobin 6.6 g/dL (11.5-15.3); Lymphocytes # 1.2 10^3/uL (0.8-4.8); Lymphocytes % 12.2 %; Mean Corpuscular HGB Conc 30.6 g/dL (30.0-36.0); Mean Corpuscular Volume 98.2 fl (81-99); Mean Platelet Volume 9.6 fL (7.4-10.4); Monocytes # 0.7 10^3/uL (0.2-0.9); Monocytes % 7.1 %; Neutrophils # 7.37 10^3/uL (1.8-7.7); Neutrophils % 76.9 %; Nucleated Red Blood Cells % 0 %; Platelet Count 182 10^3/cmm (130-400); Red Cell Distribution Width 14.9 % (12.1-15.1); White Blood Count 9.6 10^3/uL (4.0-10.0)
[2021-08-08] MEDS: HYDROcodone-acetaminophen 5-325 mg Tablet PO ×2 (03:13→07:34)
[2021-08-08 03:21] LABS: Alanine Aminotransferase 7 U/L (0-33); Albumin Level 2.4 g/dL (3.5-5.2); Alkaline Phosphatase 64 IU/L (35-105); Anion Gap 10.8 (5-19); Aspartate Amino Transferase 15 U/L (0-32); Blood Urea Nitrogen 9 mg/dL (8-23); Calcium 7.1 mg/dL (8.5-10.5); Carbon Dioxide 26 mmol/L (22-29); Chloride 106 mmol/L (98-107); Globulin 2.1 g/dL (1.3-4.6); Glomerular Filtration Rate 226.2 mL/min (90-130); Glucose 119 mg/dL (65-115); NT Pro B Type Natriuretic Pept 496 pg/mL (0-125); Osmolality Calculated 288 mOsm/kg (285-295); Potassium 3.8 mmol/L (3.5-5.1); Sodium 139 mmol/L (136-145); Total Bilirubin 0.2 mg/dL (0.15-1.2); Total Protein 4.5 g/dL (6.6-8.7)
[2021-08-08] MEDS: enoxaparin 40 mg/0.4 mL Syringe SUBCUT (05:05)
--- NOTE | 2021-08-08 05:31 | PC.NURSE ---
SHIFT SUMMARY Has had a good night. Says she actually rested& slept well. Hmg back to 6.6 this am and is receiving 1 unit of PRBC's presently. Pleasant and talkative. Continues to require po Hydrocodone q4h but says is controlling pain better tonight. Had her last dose of prn Toradol. Dressing to medial back is C&D. Hemovac with 120 ml drainage tonight and is serosanguinous in color.
--- NOTE | 2021-08-08 06:54 | P.PN_ITS ---
Documented by User: HERNAN Bell 08/08/21 06:59 Subjective Subjective: Interval history: POD 2 Reports back pain with leg numbness, No BM, Had dizziness through the night and currently recieving Blood Transfusion Vitals/I&O/Wt Last Vital Signs Temp 97.7 F 08/08/21 06:52 Pulse 88 08/08/21 06:52 Resp 16 08/08/21 06:52 BP 118/67 08/08/21 06:52 Pulse Ox 99 08/08/21 06:52 08/07/21 08/07/21 08/08/21 14:59 22:59 06:59 Intake Total 60 / 60 1520 / 1580 240 / 1820 Output Total 1000 / 1000 600 / 1600 900 / 2500 Balance -940 / -940 920 / -20 -660 / -680 Weight last 48 hrs Weight 208 lb 14.4 oz Physical Exam Narrative: EXAM NARRATIVE: Incison c/d with Hemovac present, Wiggles all digits with good cap refill, calves supple and NT Fires in all motor groups Extremity: COMMON NORMALS: normal to inspection Urinary Catheter Management^: Latex Free: Cath Placed During This Visit: yes Reason for Continuing Indwelling Catheter: Required Immobilization for Trauma or Surgery or Anesthesia Urinary Catheter Date of Insertion: 08/06/21 Urinary Catheter Time of Insertion: 08:45 Data : 08/08/21 01:55 08/08/21 01:55 A&P Assessment and plan (1) Acute blood loss as cause of postoperative anemia: DC hemovac this AM, LOC to help with BM Continue SMI for Pulm Toilet Mobilize in halls Status: Acute (2) Fusion of spine: Status: Acute Attestations Medical Necessity Statement*: defer to Medical Team Coding Level of Care Code Acute Heater Engineer Helper for [facility] Fwd Exam Problem Focused Diagnoses Acute blood loss as cause of postoperative anemia D62 Fusion of spine M43.20 Documented by User: Montez Leone DO 08/08/21 07:07 Physical Exam Urinary Catheter Management^: Latex Free: Cath Placed During This Visit: no Data : 08/08/21 01:55 08/08/21 01:55 Coding Level of Care Code Acute Heater Engineer Helper for [facility] Fwd Exam Problem Focused Diagnoses Acute blood loss as cause of postoperative anemia D62 Fusion of spine M43.20
--- NOTE | 2021-08-08 07:33 | PC.NURSE ---
Patient refused to have her Baig Catheter out this morning. Patient states, I want to wait until I can get up and out of bed.
[2021-08-08] MEDS: sodium chloride 0.9% (100 ml) 100 ML 15 ML (07:49)
--- NOTE | 2021-08-08 07:50 | PC.NURSE ---
Hemovac removed at this time. Patient tolerated well. 50mls in container
[2021-08-08] MEDS: FUROsemide 40 mg Tablet PO ×2 (08:25→15:18)
[2021-08-08] MEDS: docusate sodium 100 mg Capsule PO ×2 (08:25→17:21)
[2021-08-08] MEDS: ropinirole 2 mg Tablet 4 MG PO ×2 (08:25→17:24)
[2021-08-08] MEDS: gabapentin 400 mg Capsule PO ×3 (08:25→20:09)
[2021-08-08] MEDS: fluoxetine 10 mg Capsule PO (08:25)
[2021-08-08] MEDS: metOLazone 5 MG Tablet 2.5 MG PO (08:28)
[2021-08-08 10:37] LABS: INR 0.95 (0.8-1.2)
[2021-08-08] MEDS: methocarbamol 750 mg Tablet PO (12:04)
[2021-08-08] MEDS: oxyCODONE-APAP 10-325 mg Tablet 1 TAB PO ×2 (13:18→20:08)
[2021-08-08] MEDS: potassium chloride ER 20 mEq Tablet 40 MEQ PO (15:18)
[2021-08-08 15:57] LABS: Hemoglobin 9.2 g/dL (11.5-15.3)
[2021-08-08 15:58] LABS: Hematocrit 28.8 % (37.0-47.0)
--- NOTE | 2021-08-08 17:28 | PM.PN ---
Subjective Subjective: Interval history: This morning patient was seen, she continues to have significant back pain, but now complaining of more right leg pain, right thigh pain, no significant swelling, no significant tenderness, but she does tell me that she hurts all over, has not had a bowel movement, no bloody or black stools, no abdominal pain, she does tell me that she feels lightheaded when getting up to the side of the bed, Baig catheter still in place, as she refuses it to be removed because she has significant pain with minimal movement Vitals/I&O/Wt Last Vital Signs Temp 98.6 F 08/08/21 13:30 Pulse 84 08/08/21 13:30 Resp 18 08/08/21 13:30 BP 127/70 08/08/21 13:30 Pulse Ox 97 08/08/21 13:30 08/08/21 08/08/21 08/08/21 06:59 14:59 22:59 Intake Total 240 / 1820 1100 / 1100 Output Total 900 / 2500 Balance -660 / -680 1100 / 1100 Physical Exam Const: COMMON NORMALS: patient oriented x3 OTHER: Complaining of lower back pain, right thigh pain Resp: COMMON NORMALS: normal respiratory effort, No retractions, No use of accessory muscles and clear to auscultation bilaterally AUSCULTATION: clear to auscultation bilaterally Cardio: COMMON NORMALS: regular rate, regular rhythm, S1 normal heart sound present and S2 normal heart sound present RATE: regular rate RHYTHM: regular rhythm HEART SOUNDS: S1 normal heart sound present and S2 normal heart sound present GI: COMMON NORMALS: Normal to inspection, nondistended, normoactive bowel sounds present, Soft to palpation and non-tender PALPATION: Yes Soft to palpation Extremity: COMMON NORMALS: no pedal edema OTHER: Right thigh, no significant swelling, erythema, point tenderness, does have pain with range of motion Lower lumbar spine, surgical site, surgical site looks clean and dry Neuro: COMMON NORMALS: patient oriented x3 Urinary Catheter Management^: Latex Free: Cath Placed During This Visit: yes Reason for Continuing Indwelling Catheter: Required Immobilization for Trauma or Surgery or Anesthesia Urinary Catheter Date of Insertion: 08/06/21 Urinary Catheter Time of Insertion: 08:45 Data : 08/08/21 15:25 08/08/21 01:55 A&P Assessment and plan (1) COPD (chronic obstructive pulmonary disease): Status: Acute (2) Degenerative scoliosis in adult patient: -Status post T11 to pelvis fusion by Dr. Leone postop day 2 -estimated blood loss was a liter -Postoperative hemoglobin down to 6.6, INR 0.95 Plan: -Monitor under medical floors, monitor vitals closely -Monitor respiratory status, monitor for fluid overload -We will transfuse 2 more units of PRBC, posttransfusion H&H, monitor hemodynamics closely, has received 3 units so far -No clinical evidence of retroperitoneal bleed, abdominal pain, abdominal distention, no skin changes, no hemodynamic compromise, does have complaint of right thigh pain, no overlying skin changes, no tightness, -Monitor for possible spontaneous bleeding into right thigh -Pain control and anticoagulation as per orthopedic team -Continue DuoNeb, currently on 2 L, uses 2 L at home -Bowel regimen -Baig catheter removal -Oxygen therapy, consult respiratory therapy Status: Acute (3) Acute blood loss as cause of postoperative anemia: Status: Acute (4) Fusion of spine: Status: Acute Attestations Medical Necessity Statement*: Patient requires hospitalization for postoperative anemia, status post back surgery Coding Level of Care Code Acute Any Commodity Buyer for [facility] Fwd Diagnoses COPD (chronic obstructive pulmonary disease) J44.9 Degenerative scoliosis in adult patient M41.80 Acute blood loss as cause of postoperative anemia D62 Fusion of spine M43.20
--- NOTE | 2021-08-08 18:12 | PC.NURSE ---
Patient refused to have the Baig catheter removed
--- NOTE | 2021-08-08 18:55 | PC.NURSE ---
Report to Mihaela LAYNE at this time.
[2021-08-08] MEDS: polyethylene glycol 3350 Pkt 17 gm PO (20:22)
[2021-08-08 21:37] LABS: Hematocrit 28.9 % (37.0-47.0); Hemoglobin 9.3 g/dL (11.5-15.3)
[2021-08-09] VITALS (9 sets, daily range): BP systolic 102–138; BP diastolic 59–79; PULSE 74–87; RESP 14–18; TEMP 36.7–37.1; O2SAT 91–98
[2021-08-09] MEDS: ketorolac 30 mg/mL INJ IVP ×2 (01:11→09:11)
[2021-08-09] MEDS: oxyCODONE-APAP 10-325 mg Tablet 1 TAB PO ×3 (05:41→18:44)
[2021-08-09] MEDS: enoxaparin 40 mg/0.4 mL Syringe SUBCUT (05:42)
[2021-08-09] MEDS: magnesium hydroxide 30 mL UDC PO (05:46)
[2021-08-09 06:25] LABS: Basophils % 0.5 %; Eosinophils # 0.3 10^3/uL (0.0-0.8); Eosinophils % 2.9 %; Hematocrit 30.4 % (37.0-47.0); Hemoglobin 9.5 g/dL (11.5-15.3); Lymphocytes # 1.3 10^3/uL (0.8-4.8); Lymphocytes % 14.5 %; Mean Corpuscular HGB Conc 31.3 g/dL (30.0-36.0); Mean Corpuscular Hemoglobin 29.1 pg (28.0-34.0); Mean Corpuscular Volume 93.3 fl (81-99); Mean Platelet Volume 9.4 fL (7.4-10.4); Monocytes # 0.6 10^3/uL (0.2-0.9); Monocytes % 7.4 %; Neutrophils # 6.34 10^3/uL (1.8-7.7); Neutrophils % 72.7 %; Nucleated Red Blood Cells % 0 %; Platelet Count 206 10^3/cmm (130-400); Red Blood Count 3.26 10^6/uL (4.1-5.3); Red Cell Distribution Width 15.5 % (12.1-15.1); White Blood Count 8.7 10^3/uL (4.0-10.0)
[2021-08-09 06:50] LABS: Alanine Aminotransferase 7 U/L (0-33); Albumin Level 2.8 g/dL (3.5-5.2); Alkaline Phosphatase 73 IU/L (35-105); Anion Gap 10.4 (5-19); Aspartate Amino Transferase 16 U/L (0-32); Blood Urea Nitrogen 7 mg/dL (8-23); Carbon Dioxide 37 mmol/L (22-29); Chloride 98 mmol/L (98-107); Globulin 2.4 g/dL (1.3-4.6); Glucose 96 mg/dL (65-115); Osmolality Calculated 292 mOsm/kg (285-295); Potassium 3.4 mmol/L (3.5-5.1); Sodium 142 mmol/L (136-145); Total Bilirubin 0.3 mg/dL (0.15-1.2); Total Protein 5.2 g/dL (6.6-8.7)
[2021-08-09 07:08] LABS: NT Pro B Type Natriuretic Pept 953 pg/mL (0-125)
--- NOTE | 2021-08-09 07:47 | PM.PN ---
Documented by User: HERNAN Bell 08/09/21 07:54 Subjective Subjective: Interval history: POD 3 patient complaining of back pain as well as hip pain. She has not had a bowel movement. She is passing large amounts of gas. She is also frustrated that when she sits on the commode her feet do not touch the ground which cause increased discomfort in her back and buttock region. She denies any dizziness, shortness of breath or chest pain. Denies any headaches. Vitals/I&O/Wt Last Vital Signs Temp 98.1 F 08/09/21 07:47 Pulse 87 08/09/21 07:47 Resp 18 08/09/21 07:47 BP 136/79 08/09/21 07:47 Pulse Ox 98 08/09/21 07:47 08/08/21 08/09/21 08/09/21 22:59 06:59 14:59 Intake Total 100 / 1200 240 / 1440 Output Total 3650 / 3650 1550 / 5200 Balance -3550 / -2450 -1310 / -3760 Physical Exam Narrative: EXAM NARRATIVE: Incision is clean and dry. She has good motor strength both lower extremities. She has normal station light touch. Feet are warm she wiggles all digits. Dorsalis pedis posterior pulses are palpable. Calves are supple. She is alert oriented x3 she has good general appearance normal normal affect. Family is present during exam. GI exam: ABD is distended mildly tender. There is positive bowel sounds Urinary Catheter Management^: Latex Free: Cath Placed During This Visit: yes Reason for Continuing Indwelling Catheter: Accurate Measurement of Urinary Output in Critically Ill Patients Urinary Catheter Date of Insertion: 08/06/21 Urinary Catheter Time of Insertion: 08:45 Data : 08/09/21 05:32 08/09/21 05:32 A&P Assessment and plan (1) Acute blood loss as cause of postoperative anemia: Status: Acute (2) Fusion of spine: We will encourage her to continue mobilizing with a walker. Will recommend mag citrate to help with having a BM. This will help reduce her back pain as well when she has a bowel movement. She has good bowel sounds and is passing gas some less concerned about a postop ileus. Discussed that nerves become hypersensitive following decompression as a lot of her sensations are normal. Encouraged her to continue with incentive spirometry for pulmonary toilet. We will continue to work for discharge tomorrow. Status: Acute Attestations Medical Necessity Statement*: defer to Medical Team Coding Level of Care Code Acute Fountain Operator for [facility] Fwd Diagnoses Acute blood loss as cause of postoperative anemia D62 Fusion of spine M43.20 Documented by User: Montez Leone DO 08/09/21 08:00 Physical Exam Urinary Catheter Management^: Latex Free: Cath Placed During This Visit: no Data : 08/09/21 05:32 08/09/21 05:32 A&P Assessment and plan (1) Fusion of spine: agree with above will attempted d/c planning tomorrow Status: Acute Coding Level of Care Code Acute Fountain Operator for [facility] Fwd Diagnoses Acute blood loss as cause of postoperative anemia D62 Fusion of spine M43.20
[2021-08-09] MEDS: docusate sodium 100 mg Capsule PO ×2 (08:15→16:34)
[2021-08-09] MEDS: metOLazone 5 MG Tablet 2.5 MG PO (08:15)
[2021-08-09] MEDS: ropinirole 2 mg Tablet 4 MG PO ×2 (08:15→16:33)
[2021-08-09] MEDS: fluoxetine 10 mg Capsule PO (08:16)
[2021-08-09] MEDS: gabapentin 400 mg Capsule PO ×3 (08:16→20:28)
[2021-08-09] MEDS: magnesium citrate Btl 296 mL 150 ML PO (09:11)
--- NOTE | 2021-08-09 12:53 | PM.PN ---
Subjective Subjective: Interval history: Patient was seen this morning, she is lying on her side, she is passing gas, but has not had a bowel movement, she feels a bit nauseous, has a poor appetite, no fevers, chills, she has diffuse pain, in both hips, and on the lower back, felt a bit lightheaded, but was able to ambulate to the bathroom, with a wheeled walker and help with her sister, Baig catheter still in place, Vitals/I&O/Wt Last Vital Signs Temp 98.4 F 08/09/21 11:32 Pulse 74 08/09/21 11:32 Resp 14 08/09/21 12:20 BP 138/74 08/09/21 11:32 Pulse Ox 97 08/09/21 11:32 08/08/21 08/09/21 08/09/21 22:59 06:59 14:59 Intake Total 100 / 1200 240 / 1440 240 / 240 Output Total 3650 / 3650 1550 / 5200 Balance -3550 / -2450 -1310 / -3760 240 / 240 Physical Exam Const: COMMON NORMALS: no acute distress and patient oriented x3 ORIENTATION/CONSCIOUSNESS: Yes awake, Yes oriented to person, Yes oriented to place and Yes oriented to time Resp: COMMON NORMALS: normal respiratory effort, No retractions, No use of accessory muscles and clear to auscultation bilaterally AUSCULTATION: clear to auscultation bilaterally Cardio: COMMON NORMALS: regular rate, regular rhythm, S1 normal heart sound present and S2 normal heart sound present RATE: regular rate RHYTHM: regular rhythm HEART SOUNDS: S1 normal heart sound present and S2 normal heart sound present GI: COMMON NORMALS: Normal to inspection, nondistended, normoactive bowel sounds present, Soft to palpation and non-tender PALPATION: Yes Soft to palpation Extremity: COMMON NORMALS: no pedal edema OTHER: Lower lumbar spine, surgical site, surgical site looks clean and dry Neuro: COMMON NORMALS: patient oriented x3, moves all extremities and no focal motor deficits SENSORIUM/ORIENTATION: Yes oriented to person, Yes oriented to place and Yes oriented to time Urinary Catheter Management^: Latex Free: Cath Placed During This Visit: yes Reason for Continuing Indwelling Catheter: Accurate Measurement of Urinary Output in Critically Ill Patients Urinary Catheter Date of Insertion: 08/06/21 Urinary Catheter Time of Insertion: 08:45 Data : 08/09/21 05:32 08/09/21 05:32 A&P Assessment and plan (1) COPD (chronic obstructive pulmonary disease): Status: Acute (2) Degenerative scoliosis in adult patient: -Status post T11 to pelvis fusion by Dr. Leone postop day 3 -estimated blood loss was a liter -Postoperative hemoglobin down to 6.6, status post 3 units PRBC, hemoglobin 9.5 Plan: -Monitor on general recheck hemoglobin at 2 PM medical floors, monitor vitals closely -Monitor respiratory status, monitor for fluid overload -Recheck hemoglobin at 2 PM -No clinical evidence of retroperitoneal bleed, abdominal pain, abdominal distention, no skin changes, no hemodynamic compromise, now-has complaints of bilateral hip pain, bilateral thigh pain -Monitor for possible spontaneous bleeding, if hemoglobin trends lower, will do CT scan abdomen and pelvis -Pain control and anticoagulation as per orthopedic team -DC Baig catheter -Needs extensive PT OT -Passing gas, bowel regimen, enema -Continue DuoNeb, currently on 2 L, uses 2 L at home -Oxygen therapy, consult respiratory therapy Status: Acute (3) Acute blood loss as cause of postoperative anemia: Status: Acute (4) Fusion of spine: Status: Acute Attestations Medical Necessity Statement*: Patient requires hospitalization for back surgery, continued intractable pain, acute anemia Coding Level of Care Code Acute [employer] Wiring Technician for [facility] Fwd Diagnoses COPD (chronic obstructive pulmonary disease) J44.9 Degenerative scoliosis in adult patient M41.80 Acute blood loss as cause of postoperative anemia D62 Fusion of spine M43.20
--- NOTE | 2021-08-09 12:53 | PC.SOCIAL ---
Pg 2 IMM Explained to pt Pg 2 IMM. No questions voiced. Provided pt a copy Initialed, dated, & timed a copy & placed in chart.
[2021-08-09] MEDS: Fleet Enema 133 mL Enema PR (13:28)
[2021-08-09 14:50] LABS: Hematocrit 29.6 % (37.0-47.0); Hemoglobin 9.5 g/dL (11.5-15.3)
[2021-08-10] VITALS (14 sets, daily range): BP systolic 96–143; BP diastolic 60–80; PULSE 68–101; RESP 15–20; TEMP 36.4–37; O2SAT 88–99
[2021-08-10] MEDS: methocarbamol 750 mg Tablet PO (01:00)
[2021-08-10] MEDS: oxyCODONE-APAP 10-325 mg Tablet 1 TAB PO ×3 (01:00→14:24)
[2021-08-10] MEDS: ketorolac 30 mg/mL INJ IVP ×3 (02:02→16:28)
[2021-08-10] MEDS: HYDROmorphone 1 mg/mL INJ 1 mL IVP ×2 (02:03→21:20)
[2021-08-10 03:39] LABS: Basophils % 0.5 %; Eosinophils # 0.3 10^3/uL (0.0-0.8); Eosinophils % 3.6 %; Hemoglobin 9.4 g/dL (11.5-15.3); Lymphocytes # 1.2 10^3/uL (0.8-4.8); Mean Corpuscular HGB Conc 31.3 g/dL (30.0-36.0); Mean Corpuscular Hemoglobin 29.9 pg (28.0-34.0); Mean Corpuscular Volume 95.5 fl (81-99); Mean Platelet Volume 9.3 fL (7.4-10.4); Monocytes # 0.6 10^3/uL (0.2-0.9); Monocytes % 7.1 %; Neutrophils # 6.16 10^3/uL (1.8-7.7); Neutrophils % 73.7 %; Nucleated Red Blood Cells % 0 %; Platelet Count 208 10^3/cmm (130-400); Red Blood Count 3.14 10^6/uL (4.1-5.3); Red Cell Distribution Width 14.7 % (12.1-15.1); White Blood Count 8.4 10^3/uL (4.0-10.0)
[2021-08-10 04:06] LABS: Alanine Aminotransferase 9 U/L (0-33); Albumin Level 2.6 g/dL (3.5-5.2); Alkaline Phosphatase 79 IU/L (35-105); Anion Gap 11.2 (5-19); Aspartate Amino Transferase 21 U/L (0-32); Blood Urea Nitrogen 9 mg/dL (8-23); Carbon Dioxide 35 mmol/L (22-29); Chloride 94 mmol/L (98-107); Globulin 2.8 g/dL (1.3-4.6); Glomerular Filtration Rate 161.7 mL/min (90-130); Glucose 100 mg/dL (65-115); Osmolality Calculated 283 mOsm/kg (285-295); Potassium 3.2 mmol/L (3.5-5.1); Sodium 137 mmol/L (136-145); Total Bilirubin 0.3 mg/dL (0.15-1.2); Total Protein 5.4 g/dL (6.6-8.7)
[2021-08-10] MEDS: enoxaparin 40 mg/0.4 mL Syringe SUBCUT (06:11)
--- NOTE | 2021-08-10 06:47 | P.PN_ITS ---
Subjective Subjective: Interval history: POD 4 patient complaining of right hip pain that seems to radiate to the outside of her right hip. She denies any groin pain. She denies any falls. She feels that the leg is getting weaker rather than stronger. She had a bowel movement yesterday and her back pain was significantly improved after that. Her family is present this morning. Vitals/I&O/Wt Last Vital Signs Temp 97.6 F 08/10/21 05:19 Pulse 101 H 08/10/21 05:19 Resp 19 H 08/10/21 05:19 BP 111/69 08/10/21 05:19 Pulse Ox 94 08/10/21 05:19 08/09/21 08/09/21 08/10/21 14:59 22:59 06:59 Intake Total 240 / 240 360 / 600 60 / 660 Output Total 350 / 350 Balance -110 / -110 360 / 250 60 / 310 Physical Exam Narrative: EXAM NARRATIVE: She reports sharp stabbing pain with palpation over the right greater trochanteric region. She has negative logroll bilaterally. She appears to fire in all motor groups but is weaker on the right compared to the left. She can dorsiflex dorsiflex and plantarflex with 5/5 strength. She has normal sensation light touch down both lower extremities. Skin is clear warm feet are warm good cap refill calves are supple. Thoracolumbar incision is clean and dry. She is markedly tender with palpation over the greater trochanteric bursa. Urinary Catheter Management^: Latex Free: Cath Placed During This Visit: yes, but has since been removed by the nurse Reason for Continuing Indwelling Catheter: Decision to DC Catheter Urinary Catheter Date of Insertion: 08/06/21 Urinary Catheter Time of Insertion: 08:45 Date Urinary Catheter Removed: 08/09/21 Time Urinary Catheter Discontinued: 13:00 Data : 08/10/21 03:20 08/10/21 03:20 A&P Assessment and plan (1) Acute blood loss as cause of postoperative anemia: Status: Acute (2) Fusion of spine: Status: Acute (3) Greater trochanteric bursitis of right hip: Most of her pain seems to be localized around the right greater trochanteric region. Would consider trying a lidocaine patch over that area unable to give a cortisone injection due to risk of infection. She is currently using a heating pad which does offer her some benefit. Continue to have physical therapy work with her on mobilizing. She is ready for discharge home when she is able to tolerate and be more mobile regarding her right hip pain. Status: Acute Attestations Medical Necessity Statement*: right hip pain Coding Level of Care Code Acute Corrosion Control Specialist for [facility] Diagnoses Acute blood loss as cause of postoperative anemia D62 Fusion of spine M43.20 Greater trochanteric bursitis of right hip M70.61
[2021-08-10] MEDS: lidocaine 5% Patch 1 PATCH TOPICAL ×2 (08:58→16:29)
[2021-08-10] MEDS: gabapentin 400 mg Capsule PO ×3 (08:59→21:29)
[2021-08-10] MEDS: docusate sodium 100 mg Capsule PO ×2 (08:59→16:29)
[2021-08-10] MEDS: ropinirole 2 mg Tablet 4 MG PO ×2 (08:59→16:28)
[2021-08-10] MEDS: fluoxetine 10 mg Capsule PO (08:59)
[2021-08-10] MEDS: potassium chloride ER 20 mEq Tablet 40 MEQ PO (10:24)
--- NOTE | 2021-08-10 14:21 | PM.PN ---
Subjective Subjective: Interval history: Patient was seen this morning, she tells me that she had a large bowel movement last night, she feels a lot better, she is lying on her side, she continues to have bilateral hip pain, but overall is doing better, Vitals/I&O/Wt Last Vital Signs Temp 98.1 F 08/10/21 11:42 Pulse 69 08/10/21 11:42 Resp 18 08/10/21 11:42 BP 96/60 08/10/21 11:42 Pulse Ox 97 08/10/21 11:42 08/09/21 08/10/21 08/10/21 22:59 06:59 14:59 Intake Total 360 / 600 60 / 660 240 / 240 Balance 360 / 250 60 / 310 240 / 240 Physical Exam Const: COMMON NORMALS: no acute distress and patient oriented x3 Resp: COMMON NORMALS: normal respiratory effort, No retractions, No use of accessory muscles and clear to auscultation bilaterally AUSCULTATION: clear to auscultation bilaterally Cardio: COMMON NORMALS: regular rate, regular rhythm, S1 normal heart sound present and S2 normal heart sound present RATE: regular rate RHYTHM: regular rhythm HEART SOUNDS: S1 normal heart sound present and S2 normal heart sound present GI: COMMON NORMALS: Normal to inspection, nondistended, normoactive bowel sounds present, Soft to palpation and non-tender PALPATION: Yes Soft to palpation Extremity: COMMON NORMALS: no pedal edema Neuro: COMMON NORMALS: patient oriented x3 Psych: COMMON NORMALS: mental status grossly normal Urinary Catheter Management^: Latex Free: Cath Placed During This Visit: yes, but has since been removed by the nurse Reason for Continuing Indwelling Catheter: Decision to DC Catheter Urinary Catheter Date of Insertion: 08/06/21 Urinary Catheter Time of Insertion: 08:45 Date Urinary Catheter Removed: 08/09/21 Time Urinary Catheter Discontinued: 13:00 Data : 08/10/21 03:20 08/10/21 03:20 A&P Assessment and plan (1) COPD (chronic obstructive pulmonary disease): Status: Acute (2) Degenerative scoliosis in adult patient: -Status post T11 to pelvis fusion by Dr. Leone -estimated blood loss was a liter -Postoperative hemoglobin down to 6.6, status post 3 units PRBC, hemoglobin 9.4 Plan: -Monitor on general medical floors -Monitor respiratory status, monitor for fluid overload -No clinical evidence of retroperitoneal bleed, abdominal pain, abdominal distention, no skin changes, no hemodynamic compromise, now-has complaints of bilateral hip pain, bilateral thigh pain -Continues to have good bilateral hip pain we will do x-ray of hip -Pain control and anticoagulation as per orthopedic team -DC Baig catheter -Needs extensive PT OT -Passing gas, had a bowel movement, bowel regimen -Continue DuoNeb, currently on 2 L, uses 2 L at home -Oxygen therapy, consult respiratory therapy -Planning on discharge the next 24 hours Status: Acute (3) Acute blood loss as cause of postoperative anemia: Status: Acute (4) Fusion of spine: Status: Acute Attestations Medical Necessity Statement*: Patient requires hospitalization for back surgery, postoperative anemia Coding Level of Care Code Acute Medical Administrative for [facility] F[facility] Diagnoses COPD (chronic obstructive pulmonary disease) J44.9 Degenerative scoliosis in adult patient M41.80 Acute blood loss as cause of postoperative anemia D62 Fusion of spine M43.20
--- NOTE | 2021-08-10 14:23 | XR_ITS ---
NOTE: Report was unsigned for reason: Order was edited. Original Signature date and time was: 08/10/21 @ 1455 WS: [id number] XR hip BI 2V wo/w pel [id number] REASON FOR EXAM: hip pain FINDINGS: RIGHT HIP: Mild narrowing of the joint space. No significant subchondral bony abnormality of the femoral head or acetabulum. Deformity the greater trochanter compatible with old healed fracture. No soft tissue abnormality. LEFT HIP: Mild narrowing of the joint space. No significant subchondral bony abnormality of the femoral head or acetabulum. No other focal bone abnormality. No soft tissue abnormality. [facility] XR/XR hip BI 2V wo/w pel [id number] IMPRESSION: Minimal hip arthropathy as above.
[2021-08-11] VITALS (12 sets, daily range): BP systolic 100–163; BP diastolic 44–77; PULSE 69–76; RESP 16–22; TEMP 36.2–37.1; O2SAT 88–99
[2021-08-11] MEDS: ketorolac 30 mg/mL INJ IVP ×3 (01:55→17:36)
[2021-08-11] MEDS: oxyCODONE-APAP 10-325 mg Tablet 1 TAB PO ×5 (04:22→22:28)
[2021-08-11] MEDS: methocarbamol 750 mg Tablet PO (04:31)
[2021-08-11 06:20] LABS: Basophils # 0.1 10^3/uL (0.0-0.1); Basophils % 0.7 %; Eosinophils # 0.3 10^3/uL (0.0-0.8); Hematocrit 31.4 % (37.0-47.0); Hemoglobin 9.8 g/dL (11.5-15.3); Lymphocytes # 0.9 10^3/uL (0.8-4.8); Lymphocytes % 11.6 %; Mean Corpuscular HGB Conc 31.2 g/dL (30.0-36.0); Mean Corpuscular Hemoglobin 29.3 pg (28.0-34.0); Mean Platelet Volume 9.1 fL (7.4-10.4); Monocytes # 0.6 10^3/uL (0.2-0.9); Monocytes % 7.5 %; Neutrophils # 5.61 10^3/uL (1.8-7.7); Neutrophils % 74.2 %; Nucleated Red Blood Cells % 0 %; Platelet Count 250 10^3/cmm (130-400); Red Blood Count 3.34 10^6/uL (4.1-5.3); Red Cell Distribution Width 14.4 % (12.1-15.1); White Blood Count 7.6 10^3/uL (4.0-10.0)
[2021-08-11] MEDS: enoxaparin 40 mg/0.4 mL Syringe SUBCUT (06:20)
[2021-08-11 06:43] LABS: Alanine Aminotransferase 9 U/L (0-33); Alkaline Phosphatase 80 IU/L (35-105); Anion Gap 8.8 (5-19); Aspartate Amino Transferase 18 U/L (0-32); Blood Urea Nitrogen 12 mg/dL (8-23); Calcium 8.1 mg/dL (8.5-10.5); Carbon Dioxide 37 mmol/L (22-29); Chloride 93 mmol/L (98-107); Globulin 2.7 g/dL (1.3-4.6); Glomerular Filtration Rate 161.7 mL/min (90-130); Glucose 101 mg/dL (65-115); Osmolality Calculated 280 mOsm/kg (285-295); Potassium 3.8 mmol/L (3.5-5.1); Sodium 135 mmol/L (136-145); Total Bilirubin 0.3 mg/dL (0.15-1.2); Total Protein 5.7 g/dL (6.6-8.7)
[2021-08-11] MEDS: docusate sodium 100 mg Capsule PO ×2 (08:35→17:36)
[2021-08-11] MEDS: ropinirole 2 mg Tablet 4 MG PO ×2 (08:35→17:36)
[2021-08-11] MEDS: fluoxetine 10 mg Capsule PO (08:35)
[2021-08-11] MEDS: gabapentin 400 mg Capsule PO ×3 (08:38→20:33)
[2021-08-11] MEDS: diazePAM 5 mg Tablet PO (09:03)
--- NOTE | 2021-08-11 09:22 | CTR_ITS ---
PROCEDURE INFORMATION: Exam: CT Thoracic Spine Without Contrast Exam date and time: 08/11/2021 9:22 AM Age: 61 years old Clinical indication: Other: RT leg pain; Prior surgery; Surgery date: 3-7 days post-operative; Additional info: Right leg pain TECHNIQUE: Imaging protocol: Computed tomography images of the thoracic spine without contrast. Total images: 443 Radiation optimization: All CT scans at this facility use at least one of these dose optimization techniques: automated exposure control; mA and/or kV adjustment per patient size (includes targeted exams where dose is matched to clinical indication); or iterative reconstruction. COMPARISON: CT lumbar spine wo con* [id number] 08/11/2021 9:40 AM RADIATION DOSE METRICS: Total DLP (mGy-cm): 1788.48 FINDINGS: Tubes, catheters and devices: Intraspinal nerve stimulator electrodes noted extending to the inferior aspect of T9. Vertebrae: T11 the sacrum Posterior spinal fusion is noted. Rods and pedicle screws are in place and there is no evidence of hardware failure. Discs/Spinal canal/Neural foramina: C6-C7, T5-7, and T8-9 Degenerative disc disease with disc space narrowing and osteophyte formation. Degenerative posterior osseous ridging. Soft tissues: Subcutaneous stranding and fluid posterior to spinal hardware related to recent surgery. Vasculature: Atherosclerosis is evident. Lungs: Benign granulomatous disease of the lung is noted. Mild centrilobular emphysematous changes are present. CT/CT thoracic spin wo con* [id number] IMPRESSION: Postsurgical and degenerative changes but no acute pathology detected Radiation Dose CTDIVOL = (mGy): DLP = 1788.48 (mGy-cm)
--- NOTE | 2021-08-11 09:22 | CTR_ITS ---
PROCEDURE INFORMATION: Exam: CT Lumbar Spine Without Contrast Exam date and time: 08/11/2021 9:22 AM Age: 61 years old Clinical indication: Other: RT leg pain; Prior surgery; Surgery date: 3-7 days post-operative; Additional info: Right leg pain TECHNIQUE: Imaging protocol: Computed tomography images of the lumbar spine without contrast. Total images: 373 Radiation optimization: All CT scans at this facility use at least one of these dose optimization techniques: automated exposure control; mA and/or kV adjustment per patient size (includes targeted exams where dose is matched to clinical indication); or iterative reconstruction. COMPARISON: OT XR lumbar spine 1V [id number] 08/06/2021 9:54 AM RADIATION DOSE METRICS: Total DLP (mGy-cm): 2603.74 FINDINGS: Tubes, catheters and devices: Intraspinal nerve stimulator electrodes noted. Vertebrae: 5 mm retrolisthesis of L3 on L4 and 3 mm retrolisthesis of L4 on L5. Discs/Spinal canal/Neural foramina: Moderate stenosis of the left neural foramina at L4-L5. Bone fragments noted adjacent to the left facets of the L5-S1 level moderately narrowing neural foramina at this level. Epidural space: Soft tissue stranding and fluid extending from the skin surface to the laminectomy sites with subcutaneous emphysema noted in the lower laminectomy sites and epidural areas felt to be related to recent surgery. Sacrum/coccyx: Status post posterior spinal fusion extending from T11 to the sacrum no evidence of hardware failure. Left screw at the S1 level extends approximately 1 cm beyond anterior cortex of the sacrum but does not extend to iliac vessels. Vasculature: Atherosclerosis is evident. Soft tissues: Unremarkable. CT/CT lumbar spine wo con* [id number] IMPRESSION: 1. Status post posterior spinal fusion extending from T11 to the sacrum no evidence of hardware failure. Left screw at the S1 level extends approximately 1 cm beyond anterior cortex of the sacrum but does not extend to iliac vessels. 2. Soft tissue stranding and fluid extending from the skin surface to the laminectomy sites with subcutaneous emphysema noted in the lower laminectomy sites and epidural areas felt to be related to recent surgery. 3. Moderate stenosis of the left neural foramina at L4-L5. 4. Bone fragments noted adjacent to the left facets of the L5-S1 level moderately narrowing neural foramina at this level. Radiation Dose CTDIVOL = (mGy): DLP = 2603.74 (mGy-cm)
--- NOTE | 2021-08-11 09:40 | PM.PN ---
Subjective Subjective: Interval history: Patient has patient was able to ambulate 150 feet yesterday per physical therapy. Without difficulty. Vitals/I&O/Wt Last Vital Signs Temp 98.4 F 08/11/21 07:25 Pulse 74 08/11/21 07:25 Resp 18 08/11/21 07:25 BP 163/77 08/11/21 07:25 Pulse Ox 99 08/11/21 07:25 08/10/21 08/11/21 08/11/21 22:59 06:59 14:59 Intake Total 120 / 360 Output Total 480 / 480 Balance 120 / 360 -480 / -120 Physical Exam Narrative: EXAM NARRATIVE: Pain over the right lateral leg. She currently has a heating pad on ice has helped this. Urinary Catheter Management^: Latex Free: Cath Placed During This Visit: yes, but has since been removed by the nurse Reason for Continuing Indwelling Catheter: Decision to DC Catheter Urinary Catheter Date of Insertion: 08/06/21 Urinary Catheter Time of Insertion: 08:45 Date Urinary Catheter Removed: 08/09/21 Time Urinary Catheter Discontinued: 13:00 Data : 08/11/21 05:53 08/11/21 05:53 A&P Assessment and plan (1) Fusion of spine: At this point my plan is to get a CT scan to further evaluate if there is compression possibly on the L5 nerve root. We will add Valium with the pain medication regime at this point. Status: Acute Attestations Medical Necessity Statement*: pain control. Coding Level of Care Code Acute Map Drafter for [facility]qu[facility] Fontaine Diagnoses Fusion of spine M43.20
--- NOTE | 2021-08-11 09:40 | PC.SOCIAL ---
IMM update IMM updated with patient. Verbalized an understanding. Copy Pg2 provided. Initialled,dated, timed, and placed in chart.
--- NOTE | 2021-08-11 11:31 | USR_ITS ---
PROCEDURE INFORMATION: Exam: US Duplex Lower Extremity Veins, Bilateral Exam date and time: 08/11/2021 11:31 AM Age: 61 years old Clinical indication: Pain; Leg, lower; Right; Additional info: Calf pain TECHNIQUE: Imaging protocol: Real-time duplex ultrasound of the extremities with 2-D mejias scale, color Doppler flow and spectral waveform analysis with image documentation. Complete exam focused on the bilateral lower extremity veins. COMPARISON: No relevant prior studies available. FINDINGS: Right deep veins: No deep venous thrombosis in the visualized right common femoral, profunda femoris, superficial femoral, popliteal, or peroneal veins. Right superficial veins: Saphenofemoral junction is patent without thrombus. Left deep veins: No deep venous thrombosis in the visualized left common femoral, profunda femoris, superficial femoral, popliteal, or peroneal veins. Left superficial veins: Saphenofemoral junction is patent without thrombus. Soft tissues: Complex 3.0 x 1.8 x 2.9 cm right popliteal [place]. US/[place] [id number] IMPRESSION: 1. No deep venous thrombosis in the visualized bilateral lower extremities. 2. Complex 3.0 x 1.8 x 2.9 cm right popliteal cyst. Radiation Dose CTDIVOL = (mGy): DLP = (mGy-cm)
--- NOTE | 2021-08-11 14:05 | PM.PN ---
Subjective Subjective: Interval history: Patient was seen this morning, she is complaining of severe pain, throughout her right side of her back, radiating down the legs, she tells me that she was up all night due to the pain, she is not received any relief overnight, no dysuria, no hematuria, Vitals/I&O/Wt Last Vital Signs Temp 97.7 F 08/11/21 11:43 Pulse 70 08/11/21 11:43 Resp 18 08/11/21 11:43 BP 141/64 08/11/21 11:43 Pulse Ox 97 08/11/21 11:43 08/10/21 08/11/21 08/11/21 22:59 06:59 14:59 Intake Total 120 / 360 720 / 720 Output Total 480 / 480 Balance 120 / 360 -480 / -120 720 / 720 Physical Exam Const: COMMON NORMALS: no acute distress and patient oriented x3 Resp: COMMON NORMALS: normal respiratory effort, No retractions, No use of accessory muscles and clear to auscultation bilaterally AUSCULTATION: clear to auscultation bilaterally Cardio: COMMON NORMALS: regular rate, regular rhythm, S1 normal heart sound present and S2 normal heart sound present RATE: regular rate RHYTHM: regular rhythm HEART SOUNDS: S1 normal heart sound present and S2 normal heart sound present GI: COMMON NORMALS: Normal to inspection, nondistended, normoactive bowel sounds present, Soft to palpation and non-tender PALPATION: Yes Soft to palpation Extremity: COMMON NORMALS: no pedal edema OTHER: Lower lumbar spine, surgical site, surgical site looks clean and dry Neuro: COMMON NORMALS: patient oriented x3 Psych: COMMON NORMALS: mental status grossly normal Urinary Catheter Management^: Latex Free: Cath Placed During This Visit: yes, but has since been removed by the nurse Reason for Continuing Indwelling Catheter: Decision to DC Catheter Urinary Catheter Date of Insertion: 08/06/21 Urinary Catheter Time of Insertion: 08:45 Date Urinary Catheter Removed: 08/09/21 Time Urinary Catheter Discontinued: 13:00 Data : 08/11/21 05:53 08/11/21 05:53 A&P Assessment and plan (1) COPD (chronic obstructive pulmonary disease): Status: Acute (2) Degenerative scoliosis in adult patient: -Status post T11 to pelvis fusion by Dr. Leone -estimated blood loss was a liter -Postoperative hemoglobin down to 6.6, status post 3 units PRBC, hemoglobin 9.8 -Continues to have postoperative pain, more right-sided, goal radiating down right lower extremities Plan: -Monitor on general medical floors -Monitor respiratory status, monitor for fluid overload -Plan on doing CT lumbar spine, and thoracic spine -We will do a UA -Pain control and anticoagulation as per orthopedic team -Currently on Valium for muscle spasms, oxycodone for pain -Needs extensive PT OT -Passing gas, having bowel movements -Continue DuoNeb, currently on 2 L, uses 2 L at home -Oxygen therapy, consult respiratory therapy -Planning on discharge the next 24 hours Status: Acute (3) Acute blood loss as cause of postoperative anemia: Status: Acute (4) Fusion of spine: Status: Acute Attestations Medical Necessity Statement*: Patient requires hospitalization for back surgery, with intractable back pain, with postoperative anemia Coding Level of Care Code Acute Balance Screwhead Polisher for [facility] Fwd Diagnoses COPD (chronic obstructive pulmonary disease) J44.9 Degenerative scoliosis in adult patient M41.80 Acute blood loss as cause of postoperative anemia D62 Fusion of spine M43.20
[2021-08-12] MEDS: methocarbamol 750 mg Tablet PO ×2 (00:42→07:37)
[2021-08-12] MEDS: ketorolac 30 mg/mL INJ IVP ×2 (00:43→07:35)
[2021-08-12 03:29] VITALS: RESP 18; O2SAT 99
[2021-08-12] MEDS: oxyCODONE-APAP 10-325 mg Tablet 1 TAB PO ×2 (03:29→09:30)
[2021-08-12] MEDS: diazePAM 5 mg Tablet PO (03:31)
[2021-08-12 03:32] VITALS: BP 149/55; PULSE 83; RESP 18; TEMP 36.1; O2SAT 99
[2021-08-12 05:11] LABS: Basophils % 0.4 %; Eosinophils # 0.5 10^3/uL (0.0-0.8); Eosinophils % 7.2 %; Hemoglobin 9.2 g/dL (11.5-15.3); Lymphocytes # 1.4 10^3/uL (0.8-4.8); Lymphocytes % 19.9 %; Mean Corpuscular HGB Conc 31.7 g/dL (30.0-36.0); Mean Corpuscular Hemoglobin 30.1 pg (28.0-34.0); Mean Corpuscular Volume 94.8 fl (81-99); Mean Platelet Volume 8.9 fL (7.4-10.4); Monocytes # 0.7 10^3/uL (0.2-0.9); Monocytes % 9.8 %; Neutrophils # 4.27 10^3/uL (1.8-7.7); Nucleated Red Blood Cells % 0 %; Platelet Count 260 10^3/cmm (130-400); Red Blood Count 3.06 10^6/uL (4.1-5.3); Red Cell Distribution Width 14.6 % (12.1-15.1); White Blood Count 7.1 10^3/uL (4.0-10.0)
[2021-08-12 05:43] LABS: Alanine Aminotransferase 9 U/L (0-33); Albumin Level 2.8 g/dL (3.5-5.2); Alkaline Phosphatase 92 IU/L (35-105); Anion Gap 11.8 (5-19); Aspartate Amino Transferase 14 U/L (0-32); Blood Urea Nitrogen 13 mg/dL (8-23); Carbon Dioxide 35 mmol/L (22-29); Chloride 94 mmol/L (98-107); Globulin 2.6 g/dL (1.3-4.6); Glucose 90 mg/dL (65-115); Osmolality Calculated 284 mOsm/kg (285-295); Potassium 3.8 mmol/L (3.5-5.1); Sodium 137 mmol/L (136-145); Total Bilirubin 0.2 mg/dL (0.15-1.2); Total Protein 5.4 g/dL (6.6-8.7)
[2021-08-12] MEDS: enoxaparin 40 mg/0.4 mL Syringe SUBCUT (06:41)
[2021-08-12] MEDS: ropinirole 2 mg Tablet 4 MG PO (07:35)
[2021-08-12] MEDS: docusate sodium 100 mg Capsule PO (07:35)
[2021-08-12] MEDS: gabapentin 400 mg Capsule PO (07:35)
[2021-08-12] MEDS: fluoxetine 10 mg Capsule PO (07:35)
[2021-08-12 07:41] VITALS: BP 106/62; PULSE 74; RESP 17; TEMP 36.8; O2SAT 90
--- NOTE | 2021-08-12 09:25 | P.DS_ITS ---
Discharge Providers Date of Admission: 08/06/21 17:01 Date of Discharge: August 12, 2021 Attending Provider at Admission: Montez Leone DO Attending Provider at Discharge: Montez Leone DO Diagnoses at Discharge Discharge Diagnosis (1) COPD (chronic obstructive pulmonary disease): Status: Acute (2) Degenerative scoliosis in adult patient: Status: Acute (3) Acute blood loss as cause of postoperative anemia: Status: Acute (4) Fusion of spine: Status: Acute Reason for Visit Reason for Visit: [id number] PSF [id number], [id number], [id number], [id number] 20 Hospital Course Hospital Course Patient was admitted on 08/06/21 for post op pain control . She had a T10 to the pelvis spine fusion. With decompression from L3 down S1. She remained in the hospital until 08/12/2021 for pain control. Pain was controlled with oxycodone and Valium. She has been ambulating with physical therapy and we will discharge her today. Physical Exam Narrative: EXAM NARRATIVE: Pain is better controlled today patient wants to leave we will discharge her and see her back in clinic on Friday. Urinary Catheter Management^: Latex Free: Cath Placed During This Visit: yes, but has since been removed by the nurse Reason for Continuing Indwelling Catheter: Decision to DC Catheter Urinary Catheter Date of Insertion: 08/06/21 Urinary Catheter Time of Insertion: 08:45 Date Urinary Catheter Removed: 08/09/21 Time Urinary Catheter Discontinued: 13:00 Discharge Data Data Completed and Pending: Completed Studies During Hospitalization Category Date Time Status CT lumbar spine w o con* [id number] Stat Cat Scan 08/11/21 09:[address] thoracic spin wo con* [id number] Stat Cat Scan 08/11/21 09:22 Completed XR abdomen 1V* 74 [id number] Routine Exams 08/06/21 16:27 Completed XR chest 1V mallorie ble [id number] Routine Exams 08/06/21 16:28 Completed XR chest 1V mallorie ble [id number] Routine Exams 08/07/21 07:00 Completed XR hip BI 2V wo/w pel [id number] Routine Exams 08/10/21 14:23 Completed XR lumbar spine 1 V [id number] Routine Exams 08/06/21 [place] [id number] Routin e Ultrasound 08/11/21 11:31 Completed Pending at discharge Category Date Time Status Urinalysis Routin e Lab 08/11/21 14:08 Uncollected Labs from last 24 hours 08/12/21 08/12/21 04:55 04:55 WBC 7.1 RBC 3.06 L Hgb 9.2 L Hct 29.0 L MCV 94.8 MCH 30.1 MCHC 31.7 RDW 14.6 Plt Count 260 MPV 8.9 Neut % (Auto) 60.0 Lymph % (Auto) 19.9 [place] % (Auto) 9.8 Eos % (Auto) 7.2 Baso % (Auto) 0.4 Neut # (Auto) 4.27 Lymph # (Auto) 1.4 [place] # (Auto) 0.7 Eos # (Auto) 0.5 Baso # (Auto) 0.0 Nucleated RBC % (a uto) 0 Nucleated RBCs # 0.0 Sodium 137 Potassium 3.8 Chloride 94 L Carbon Dioxide 35 H Anion Gap 11.8 BUN 13 Creatinine 0.5 GFR Calculation 125.0 Glucose 90 Calculated Osmolal ity 284 L Calcium 8.0 L Total Bilirubin 0.2 AST 14 ALT 9 Alkaline Phosphata se 92 Total Protein 5.4 L Albumin 2.8 L Globulin 2.6 Vitals: Last Vital Signs Temp 98.2 F 08/12/21 07:41 Pulse 74 08/12/21 07:41 Resp 17 08/12/21 07:41 BP 106/62 08/12/21 07:41 Pulse Ox 90 08/12/21 07:41 Discharge Plan Discharge Patient Disposition: Home Condition: Stable Prescriptions: New oxycodone-acetaminophen 10-325 mg tablet 1 - 2 tab PO Q4H PRN (Reason: pain) 7 Days Qty: 40 RF: 0 Valium 5 mg tablet 5 mg PO Q8H PRN (Reason: muscle spasm) 7 Days Qty: 30 RF: 0 Continued ropinirole 4 mg tablet See Rx Instructions .ROUTE .COMPLEX RF: 0 fluoxetine 10 mg capsule 10 mg PO QAM RF: 0 methocarbamol 750 mg tablet 750 mg PO TID PRN (Reason: Back Pain) RF: 0 gabapentin 400 mg capsule 400 mg PO TID RF: 0 furosemide [Lasix] 40 mg tablet 40 mg PO QAM RF: 0 hydrocodone-acetaminophen 10-325 mg tablet 1 tab PO Q8H PRN (Reason: Pain) RF: 0 (DME) E0748 Bone growth stimulator See Rx Instructions .Route .MEDSUPPLY Qty: 1 RF: 0 potassium chloride 10 mEq tablet extended release 10 meq PO QAM RF: 0 estradiol 2 mg tablet 2 mg PO BEDTIME RF: 0 fluticasone propion-salmeterol [Wixela Inhub] 100-50 mcg/dose blister with device 1 inh INHALATION BID RF: 0 albuterol sulfate 90 mcg/actuation HFA aerosol inhaler 2 puff INHALATION Q4H PRN (Reason: Shortness Of Breath) RF: 0 Spiriva Respimat 2.5 mcg/actuation mist 2 puff INHALATION DAILY RF: 0 metolazone 5 mg Tablet 2.5 mg PO EVERY OTHER DAY RF: 0 Discharge Orders: Discharge Order (Routine); Ordered 08/12/21 Ordered By: Montez Leone Other Ambulatory Orders: DME: Oxygen (Order) Location: None Selected Ordered By: Aldo Mata Referrals: [facility] [Outside] Discharge Diet: Advance as tolerated Discharge Activity: Limit activity as instructed Patient Instructions: Opioid Safety Activity Restrictions/Additional Instructions: Thank you for [facility] for your care! The following is a list of instructions, from your provider, to follow upon your discharge to ensure you have the optimal recovery from your recent injury orsurgery. Follow-up care is a foote part of your treatment and safety. Be sure to make and go to all appointments, and call your doctor if you are having problems. If you do not already have a follow-up appointment made, call Dr. Leone office in the next 1-3 days to make follow up appointment for friday 14 weeks at [phone]. It is also a good idea to know your test results and keep a list of the medicines you take. Medications will be prescribed for you at your provider's discretion. These medications are to be used as instructed; if they are taken more often that prescribed they will not be refilled early and in most cases will not be refilled at all. > When a refill is needed,you should contact susanna franklin 2-3 business days before your prescription runs out. Medications will NOT be refilled by sales consulting director providers after hours! > Many pain medications contain Tylenol (Acetaminophen). Do not consume more than 4,000 mg of Tylenol per day in total with any combination ofmedications. > Pain medications can cause constipation. Please use an over the counter stool softener as directed, while taking pain medications. Consulty our local pharmacist with questions or recommendations on stool softeners. If constipation persists, contact our office or your primary care provider. > While under our care,you are not to receive pain medications or other controlled substances from any other provider unless our office is notified and approves. Any attempts to do so will result in refusal to prescribe any further pain medications and possible dismissal from our practice. ? Your wound and/or dressing should remain on until seen in Clinic on the ? Showering is permitted, however we ask that you do not take a bath, sit in a whirlpool / Jacuzzi, or go swimming for 1 month. For only the first 2 days after surgery, lt wilt be necessary for you to cover your wound/dressing with plastic and tape to keep it dry. ? Walking is essential for the healing process after surgery. We would like you to slowly advance your walking. This should be done on relatively flat clear ground (inside or out) or can be done on a treadmill. Remember this goal does not have to happen all at once, slowly increase your distance and duration. This can be broken into more more than one walk per day as tolerated. Patients who walk as directed after surgery rarely require Physical Therapy. In the unlikely event this issue arises your provider will direct hospital staff to make the appropriate arrangements. ? No lifting over 5 pounds {a gallon of milk) or bending/twisting until further notice. Each of these activities places an unnecessary amount of stress onto the body and can impede the delicate healing process. > Instead of bending at the waist, keep your back straight and bend at the knees. > Instead of twisting your torso, keep your back straight and turn your entire body with your feet. ? You may sleep in any position which makes you comfortable. Many patients find comfort sleeping in a reclining chair. It is not abnormal to have difficulty sleeping for the first several weeks following your surgery. We recommend trying Benadry! or Tylenol PM as directed to help with your sleeping difficulties. Both medications are over the counter and available withoutprescription. ? NO SMOKING!!! Smoking dramatically increases the probability of developing postoperative wound infections. ? Common complaints after lumbar and/or thoracic spine surgery include, but are not limited to: numbness and/or tingling in the legs, pain around the incision and surrounding tissues, muscle spasms, or stiffness of the middle to low back. Contact our office if these symptoms persist or if an acute change occurs. ? No driving for the first 3-5days, and not while taking narcotics [] u ntil seen at your follow-up appointment and cleared. There are no restrictions for riding on short trips, however if you take a longer trip, arrangements should be made to make regular stops to get out of the vehicle and stretch . ? Swelling is an unfortunate event that will take place with any surgery and is the primary source of your postoperative discomfort. While walking and regular approved activities helps control inflammation, there are additional steps you can take to minimizeswelling. > Place ice over the surgical site and surrounding tissue for twenty minutes, followed by applying a low/medium heat (heating pad) for an additional twenty minutes every 1-2 hours as needed for painrelief. > You may use of over the counter anti-inflammatory medications (Ibuprofen, Motrin, Aleve, Advil, etc) as directed on the package label. These types of medicines wm significantly reduce the amount of discomfort you experience after surgery from swelling. It should be noted that if you have and allergy to any of these medications, or a history of ulcers or kidney disease you should consult you primary care provider prior to starting these medications. Discharge Attestations Time Spent in Discharge Care*: less than 30 min Quality Metrics Clinical Quality Measures During this hospital stay, did patient experience: None Coding Level of Care Code Acute [facility] note Diagnoses COPD (chronic obstructive pulmonary disease) J44.9 Degenerative scoliosis in adult patient M41.80 Acute blood loss as cause of postoperative anemia D62 Fusion of spine M43.20
[2021-08-12 09:30] VITALS: RESP 17
[2021-08-12] MEDS: metOLazone 5 MG Tablet 2.5 MG PO (09:30)
--- NOTE | 2021-08-12 09:53 | P.PN_ITS ---
Subjective Subjective: Interval history: She is overall feeling better. Some soreness in the right hip, rating into the right groin. No pain or discomfort or lower leg or behind the knee. Discussed with her and her sister regarding findings of complex right popliteal cyst. She understands to seek medical attention in case she develops any swelling or redness in the right lower extremity, pain, or other concerning symptoms. Vitals/I&O/Wt Last Vital Signs Temp 98.2 F 08/12/21 07:41 Pulse 74 08/12/21 07:41 Resp 17 08/12/21 09:30 BP 106/62 08/12/21 07:41 Pulse Ox 90 08/12/21 07:41 08/11/21 08/12/21 08/12/21 22:59 06:59 14:59 Intake Total 120 / 840 480 / 1320 600 / 600 Output Total 400 / 400 Balance 120 / 840 80 / 920 600 / 600 Physical Exam Narrative: EXAM NARRATIVE: Sister at bedside. Const: COMMON NORMALS: no acute distress and patient oriented x3 HENMT: COMMON NORMALS: oropharynx normal Neck/C-Spine: COMMON NORMALS: no JVD Resp: COMMON NORMALS: normal respiratory effort and clear to auscultation bilaterally AUSCULTATION: clear to auscultation bilaterally Cardio: COMMON NORMALS: no JVD, regular rhythm, S1 normal heart sound present, S2 normal heart sound present and No murmurs present (Cardio) RHYTHM: regular rhythm HEART SOUNDS: S1 normal heart sound present and S2 normal heart sound present GI: COMMON NORMALS: Normal to inspection, nondistended, normoactive bowel sounds present, Soft to palpation and non-tender PALPATION: Yes Soft to p alpation Extremity: COMMON NORMALS: no joint enlargement and no pedal edema Neuro: COMMON NORMALS: patient oriented x3 and moves all extremities Skin: COMMON NORMALS: no rashes or lesions noted GENERAL SKIN EXAM: no rashes or lesions noted Urinary Catheter Management^: Latex Free: Cath Placed During This Visit: yes, but has since been removed by the nurse Reason for Continuing Indwelling Catheter: Decision to DC Catheter Urinary Catheter Date of Insertion: 08/06/21 Urinary Catheter Time of Insertion: 08:45 Date Urinary Catheter Removed: 08/09/21 Time Urinary Catheter Discontinued: 13:00 Data : 08/12/21 04:55 08/12/21 04:55 A&P Assessment and plan (1) COPD (chronic obstructive pulmonary disease): Not in exacerbation. On chronic oxygen at night and as needed during the day. Has oxygen available here. Status: Acute (2) Degenerative scoliosis in adult patient: Doing well. Returning home today. Status: Acute (3) Acute blood loss as cause of postoperative anemia: Discussed with her and her sister, hemoglobin down slightly to 9.2. Requested follow-up hemoglobin and her sister will take her to the lab. She does not have a PCP here, will be following up with PCP once returning to [place]. Will follow up with orthopedics. An appointment next week. Status: Acute (4) Fusion of spine: Status: Acute (5) Popliteal cyst: Status: Acute Attestations Medical Necessity Statement*: Returning home. Coding Level of Care Code Acute Medical Staff Services Coordinator for Daquan Fontaine Diagnoses COPD (chronic obstructive pulmonary disease) J44.9 Degenerative scoliosis in adult patient M41.80 Acute blood loss as cause of postoperative anemia D62 Fusion of spine M43.20 Popliteal cyst M71.20
--- NOTE | 2021-08-15 14:27 | PC.SOCIAL ---
discharge follow up call made, spoke with patient and patients sister. patient was seen in the ER early friday morning for leg pain. patient reports she was given a shot she reports pain relief at this time. patient is taking hydrocodone and valium as directed. patient directed to have cbc drawn at [facility] in [facility] tomorrow to recheck hemoglobin. patient is using walker for ambulation. o2 at 2l as directed and tolerating well. discussed lifting restriction with patient, she verbalized understanding. patient and sister deny questions or concerns.
== END 2021-08-12 11:20 | disposition home or self-care (01) | DRG 457 ==
LOC: MEDSURG 08-07 14:12
PROVIDERS: Anesthesiology; Family Medicine; Physician Assistant; Admitting Provider Orthopaedic Surgery; Visit Provider Orthopaedic Surgery
PROC: 00NY0ZZ Release Lumbar Spinal Cord, Open Approach (ICD-10-PCS; CPT 22612; principal; 2021-08-06 07:00)
DX: M41.86 Other forms of scoliosis, lumbar region (principal); D62 Acute posthemorrhagic anemia; G89.29 Other chronic pain; M48.07 Spinal stenosis, lumbosacral region; M70.61 Trochanteric bursitis, right hip; M25.552 Pain in left hip; J44.9 Chronic obstructive pulmonary disease, unspecified; Z96.82 Presence of neurostimulator; Z87.891 Personal history of nicotine dependence; Z79.891 Long term (current) use of opiate analgesic; Z79.51 Long term (current) use of inhaled steroids; Z79.890 Hormone replacement therapy
CPT/HCPCS: 36415; 36430; 51702; 71045; 72020; 72128; 72131; 73521; 73522; 74018; 76000; 80048; 80053; 80500; 83880; 85014; 85018; 85025; 85610; 86850; 86870; 86900; 86920; 93970; 94640; 94664; 96372; 97110; 97116; 97162; 97530; C1713; C9359; J0330; J0690; J1100; J1170; J1644; J1650; J1885; J2250; J2370; J2405; J2704; J2710; J3010; J3370; J3490; J7030; P9016; P9041

== ENCOUNTER 2021-08-13 06:02 | Emergency (ER) | payer MEDICARE, SELFPAY ==
[2021-08-13 06:03] VITALS: BP 164/73; PULSE 82; RESP 18; TEMP 36.2; O2SAT 94; BMI 34.3
[2021-08-13 06:42] VITALS: RESP 22; O2SAT 88
[2021-08-13] MEDS: morphine 4 mg/mL SDV 1 mL 8 MG IVP (06:42)
[2021-08-13] MEDS: ondansetron 2 mg/ML SDV 2 mL 4 MG IVP (06:42)
[2021-08-13] MEDS: dexamethasone 10 mg/mL INJ IVP (06:43)
[2021-08-13] MEDS: orphenadrine 30 mg/mL Inj 2 mL 60 MG IVP (06:43)
--- NOTE | 2021-08-13 06:49 | ED_ITS ---
HPI - Back Pain/Injury General: Chief Complaint: Back Pain/Injury Stated Complaint: Lower Back Pain Time Seen by Provider: 08/13/21 06:14 History of Present Illness: HPI Narrative: 61-year-old female who recently had very extensive lumbar decompression laminectomy for pneumonectomy with fixation. She had a prolonged postoperative stay due to pain. She was discharged home by Dr. Leone yesterday but only has some difficulty getting her pain medications filled to get sent to a pharmacy that the discharging physician was unaware was not open they resent it but there is a delay in getting her medication she has taken some overnight but at gotten to the point where her pain is poorly controlled and was not able to get it back under control with the oral medications. She is chronically on oxygen she denies any new or different extremity pain she still has some right leg weakness and bilateral lower extremity radicular-like pain that was present at the time of discharge.. Notes reviewed from hospitalization. MD elicited complaint: back pain Pertinent past history: prior back pain and back surgery Onset (ago): week(s) Timing: constant Severity: severe Quality: sharp and spasming Location: lumbar spine Radiation: left upper leg, right upper leg and right leg below the knee Exacerbating factors: movement, sitting upright and walking Relieving factors: immobilization Context: other (Recent surgery) Associated symptoms: Reports difficulty walking; Deny abdominal pain, arthralgias, chills, change in bowel habits, dysuria, fatigue, fecal incontinence, fever(s), hematuria, myalgias, nausea, numbness, syncope, tingling/numbness/burning, urinary frequency, urinary urgency, vomiting or weakness Treatments prior to arrival: prescription analgesics Work related injury: No Review of Systems Const: Denies: fever(s), chills or fatigue ENMT: Denies: throat pain, ear or mastoid pain, nasal discharge or nasal congestion Card: Denies: syncope Resp: Denies: dyspnea, productive cough or non-productive cough GI: Denies: abdominal pain, nausea, vomiting, fecal incontinence or change in bowel habits : Denies: dysuria, urinary urgency or hematuria Skin/Breast: Denies: rash or pruritus Neuro: Reports: difficulty walking PFS ED PFSH: Medical History COPD (chronic obstructive pulmonary disease) Gall bladder disease Status post insertion of nerve stimulator 2019 Surgical History History of section History of cholecystectomy History of hysterectomy History of spinal surgery History of tubal ligation Family History Other Cancer Diabetes Social History Smoking and tobacco status: former smoker Alcohol intake: former Marital status: Number of children: 2 service: No History of recent travel: No Physical Exam Const: COMMON NORMALS: no acute distress GENERAL APPEARANCE: cooperative and comfortable ORIENTATION/CONSCIOUSNESS: Yes awake, Yes oriented to person, Yes oriented to place and Yes oriented to time HENMT: COMMON NORMALS: normocephalic, atraumatic and hearing grossly normal bilaterally HEAD & SCALP: normocephalic and atraumatic Neck/C-Spine: COMMON NORMALS: no JVD Resp: COMMON NORMALS: normal respiratory effort, No retractions, No use of accessory muscles and clear to auscultation bilaterally AUSCULTATION: clear to auscultation bilaterally Cardio: COMMON NORMALS: no JVD, regular rate, regular rhythm and No murmurs present (Cardio) RATE: regular rate RHYTHM: regular rhythm GI: COMMON NORMALS: Soft to palpation and No hepatosplenomegaly present AUSCULTATION: Yes normoactive bowel sounds PALPATION: Yes Soft to palpation, No Tenderness to palpation present (GI), No Guarding due to palpation present (GI) and Yes No hepatosplenomegaly present Neuro: SENSORIUM/ORIENTATION: Yes oriented to person, Yes oriented to place and Yes oriented to time Skin: COMMON NORMALS: no rashes or lesions noted NARRATIVE SKIN EXAM: Examination the incision along the lumbar lower thoracic spine there is no evidence of erythema no drainage no induration no signs of infection. GENERAL SKIN EXAM: no rashes or lesions noted Course Vital Signs: Vital signs: Vital Signs Temperature 98.9 F 08/13/21 08:10 Pulse Rate 70 08/13/21 08:10 Respiratory Rate 19 H 08/13/21 08:10 Blood Pressure 147/62 08/13/21 08:10 Pulse Oximetry 100 08/13/21 08:10 MDM - Back Pain/Injury MDM Narrative: Medical decision making narrative: Pain well controlled at this point. Suspect this is an issue with the pain got out of control and she is unable to maintain adequate levels of pain control with oral medications at that point. We will discharge her home no change in pain regimen at this point follow-up with Dr. Leone as previously scheduled. Will notify Dr. Leone as well. Lab Data: Labs: Lab Results 08/13/21 08/13/21 06:33 06:33 WBC 7.3 10^3/uL 10^3/ uL (4.0-10.0) RBC 3.57 10^6/uL L 10 ^6/uL (4.1-5.3) Hgb 10.6 g/dL L g/dL (11.5-15.3) Hct 33.3 % L % (37.0-47.0) MCV 93.3 fl fl (81-99) MCH 29.7 pg pg (28.0-34.0) MCHC 31.8 g/dL g/dL (30.0-36.0) RDW 14.2 % % (12.1-15.1) Plt Count 340 10^3/cmm D 1 0^3/cmm (130-400) MPV 8.9 fL fL (7.4-10.4) Neut % (Auto) 69.3 % % Lymph % (Auto) 13.6 % % [place] % (Auto) 7.6 % % Eos % (Auto) 6.2 % % Baso % (Auto) 0.8 % % Neut # (Auto) 5.05 10^3/uL 10^3 /uL (1.8-7.7) Lymph # (Auto) 1.0 10^3/uL 10^3/ uL (0.8-4.8) [place] # (Auto) 0.6 10^3/uL 10^3/ uL (0.2-0.9) Eos # (Auto) 0.5 10^3/uL 10^3/ uL (0.0-0.8) Baso # (Auto) 0.1 10^3/uL 10^3/ uL (0.0-0.1) Nucleated RBC % (a uto) 0 % % Nucleated RBCs # 0.0 /100WBC /100W BC Sodium 134 mmol/L L mmol /L (136-145) Potassium 3.9 mmol/L mmol/L (3.5-5.1) Chloride 92 mmol/L L mmol/ L (98-107) Carbon Dioxide 31 mmol/L H mmol/ L (22-29) Anion Gap 14.9 (5-19) BUN 9 mg/dL mg/dL (8-23) Creatinine 0.5 mg/dL mg/dL (0.5-0.9) GFR Calculation 125.0 mL/min mL/m in (90-130) Glucose 90 mg/dL mg/dL (65-115) Calculated Osmolal ity 276 mOsm/kg L mOs m/kg (285-295) Calcium 8.6 mg/dL mg/dL (8.5-10.5) Discharge Plan Discharge Patient Disposition: Home Clinical Impression: Lumbar radiculopathy, Fusion of spine, Status post laminectomy, Post- laminectomy syndrome Condition: Stable Prescriptions: New hydrocodone-acetaminophen 5-325 mg tablet 1 tab PO Q6H PRN (Reason: pain) Qty: 15 RF: 0 prednisone 20 mg tablet 20 mg PO BID 7 Days Qty: 15 RF: 0 tizanidine 4 mg capsule 4 mg PO Q6H PRN (Reason: muscle spasticity) Qty: 14 RF: 0 No Action ropinirole 4 mg tablet See Rx Instructions .ROUTE .COMPLEX RF: 0 fluoxetine 10 mg capsule 10 mg PO QAM RF: 0 gabapentin 400 mg capsule 400 mg PO TID RF: 0 furosemide [Lasix] 40 mg tablet 40 mg PO QAM RF: 0 hydrocodone-acetaminophen 10-325 mg tablet 1 tab PO Q8H PRN (Reason: Pain) RF: 0 (DME) E0748 Bone growth stimulator See Rx Instructions .Route .MEDSUPPLY Qty: 1 RF: 0 methocarbamol 750 mg tablet 750 mg PO Q8H 14 Days Qty: 42 RF: 0 potassium chloride 10 mEq tablet extended release 10 meq PO QAM RF: 0 estradiol 2 mg tablet 2 mg PO BEDTIME RF: 0 fluticasone propion-salmeterol [Wixela Inhub] 100-50 mcg/dose blister with device 1 inh INHALATION BID RF: 0 albuterol sulfate 90 mcg/actuation HFA aerosol inhaler 2 puff INHALATION Q4H PRN (Reason: Shortness Of Breath) RF: 0 Spiriva Respimat 2.5 mcg/actuation mist 2 puff INHALATION DAILY RF: 0 oxycodone-acetaminophen 10-325 mg tablet 1 - 2 tab PO Q4H PRN (Reason: pain) 7 Days Qty: 40 RF: 0 Valium 5 mg tablet 5 mg PO Q8H PRN (Reason: muscle spasm) 7 Days Qty: 30 RF: 0 Valium 5 mg tablet 5 mg PO Q8H PRN (Reason: muscle spasm) Qty: 6 RF: 0 hydrocodone-acetaminophen 10-325 mg tablet 1 tab PO Q4H PRN (Reason: pain) Qty: 6 RF: 0 metolazone 5 mg Tablet 2.5 mg PO EVERY OTHER DAY RF: 0 Discharge Orders: Discharge ED (Routine); Ordered 08/13/21 Ordered By: Robert Hinkle Discharge Diet: Usual diet Discharge Activity: Increase activity as tolerated Patient Instructions: Opioid Safety Activity Restrictions/Additional Instructions: Follow-up with Dr. Leone as previously scheduled. Continue to use previously prescribed medications for pain control for the back. Coding Level of Care Code ED Tag Clerk for Chg Fwd Exam Detailed
[2021-08-13 06:55] LABS: Basophils # 0.1 10^3/uL (0.0-0.1); Basophils % 0.8 %; Eosinophils # 0.5 10^3/uL (0.0-0.8); Eosinophils % 6.2 %; Hematocrit 33.3 % (37.0-47.0); Hemoglobin 10.6 g/dL (11.5-15.3); Lymphocytes % 13.6 %; Mean Corpuscular HGB Conc 31.8 g/dL (30.0-36.0); Mean Corpuscular Hemoglobin 29.7 pg (28.0-34.0); Mean Corpuscular Volume 93.3 fl (81-99); Mean Platelet Volume 8.9 fL (7.4-10.4); Monocytes # 0.6 10^3/uL (0.2-0.9); Monocytes % 7.6 %; Neutrophils # 5.05 10^3/uL (1.8-7.7); Neutrophils % 69.3 %; Nucleated Red Blood Cells % 0 %; Platelet Count 340 10^3/cmm (130-400); Red Blood Count 3.57 10^6/uL (4.1-5.3); Red Cell Distribution Width 14.2 % (12.1-15.1); White Blood Count 7.3 10^3/uL (4.0-10.0)
[2021-08-13 07:00] VITALS: BP 144/63; PULSE 72; RESP 19; O2SAT 99
[2021-08-13 07:10] LABS: Anion Gap 14.9 (5-19); Blood Urea Nitrogen 9 mg/dL (8-23); Calcium 8.6 mg/dL (8.5-10.5); Carbon Dioxide 31 mmol/L (22-29); Chloride 92 mmol/L (98-107); Glucose 90 mg/dL (65-115); Osmolality Calculated 276 mOsm/kg (285-295); Potassium 3.9 mmol/L (3.5-5.1); Sodium 134 mmol/L (136-145)
--- NOTE | 2021-08-13 07:49 | PC.NURSE ---
Received report assumed care, no changes noted from report. Rest on left side. Daughter in room. Medication has helped the pain. Continue to monitor.
[2021-08-13 08:10] VITALS: BP 147/62; PULSE 70; RESP 19; TEMP 37.2; O2SAT 100
== END 2021-08-13 08:25 | disposition home or self-care (01) ==
PROVIDERS: Emergency Provider Family Medicine
DX: M54.16 Radiculopathy, lumbar region (principal); M96.1 Postlaminectomy syndrome, not elsewhere classified; J44.9 Chronic obstructive pulmonary disease, unspecified; Z87.891 Personal history of nicotine dependence
CPT/HCPCS: 80048; 85025; 96374; 96375; 99284; J1100; J2270; J2360; J2405

== ENCOUNTER 2021-08-15 19:28 | Emergency (ER) | payer MEDICARE, SELFPAY ==
[2021-08-15] VITALS (8 sets, daily range): BP systolic 113–146; BP diastolic 42–66; PULSE 60–71; RESP 16–20; TEMP 36.6–36.9; O2SAT 95–98; BMI 34.3
--- NOTE | 2021-08-15 21:38 | W.ED.GENADLT ---
HPI - General Adult General: Chief complaint: General Medical Stated complaint: R Leg Stabbing Pains\Surgury 08/06/2021 Time Seen by Provider: 08/15/21 20:39 History of Present Illness: HPI narrative: Patient is a 61-year-old female that comes to the ED with back pain radiates down right leg. Patient had spinal surgery with Dr. Leone back on August 06. She has been having worsening back pain and pain rating down her right leg. Denies any injury or trauma to cause any worsening symptoms. Patient was seen here in the ED for same complaint on August 13 as well. Patient currently takes prednisone 40 mg daily, hydrocodone tens as needed every 4 hours, Robaxin, Valium and gabapentin to help manage pain. She contacted Dr. Leone's office earlier today and told him not pain and they told her to increase the frequency she takes her hydrocodone to every 4 hours instead of every 6 hours. She rates her current pain at 10 out of 10. Patient is able to ambulate but it does cause some discomfort. Patient has a postop follow-up appointment with Dr. Leone on August 21. Denies any weakness to lower extremities, bladder or bowel incontinence or pelvic anesthesia. Associated symptoms: Deny chest pain, dyspnea, headache(s), nausea, rash, palpitations or vomiting Review of Systems Const: Denies: fever(s), chills or fatigue Eyes: Denies: change in vision or eye discomfort ENMT: Denies: throat pain, odynophagia, nasal discharge or nasal congestion Card: Denies: chest pain, palpitations, edema, swelling of feet/ankles, dyspnea on exertion or orthopnea Resp: Denies: dyspnea, productive cough or non-productive cough GI: Denies: abdominal pain, nausea, vomiting, diarrhea, constipation or hematochezia : Denies: flank pain, dysuria or hematuria Musc: Reports: back pain (post op lumbar surgery. Pain radiating down right leg); Denies: neck pain or extremity swelling Skin/Breast: Denies: rash or new lesions Neuro: Denies: headache(s), numbness in extremities or weakness in extremities [facility] ED PFSH: Medical History COPD (chronic obstructive pulmonary disease) Gall bladder disease Status post insertion of nerve stimulator 2019 Surgical History History of section History of cholecystectomy History of hysterectomy History of spinal surgery History of tubal ligation Family History Other Cancer Diabetes Social History Smoking and tobacco status: former smoker Alcohol intake: former Marital status: Number of children: 2 service: No History of recent travel: No Physical Exam Const: COMMON NORMALS: patient oriented x3 and alert GENERAL APPEARANCE: cooperative and in distress (Patient appears uncomfortable and in some pain.); not comfortable HENMT: COMMON NORMALS: normocephalic HEAD & SCALP: normocephalic MOUTH: Normal oral and palatal mucosa present THROAT: posterior oropharynx normal and uvula midline Neck/C-Spine: COMMON NORMALS: supple GENERAL: Yes normal visual inspection Resp: COMMON NORMALS: normal respiratory effort, No retractions, No use of accessory muscles and clear to auscultation bilaterally AUSCULTATION: clear to auscultation bilaterally Cardio: COMMON NORMALS: regular rate, regular rhythm, S1 normal heart sound present, S2 normal heart sound present, No gallops present (Cardio), No clicks present (Cardio), No murmurs present (Cardio) and Peripheral pulses 2+ throughout RATE: regular rate RHYTHM: regular rhythm HEART SOUNDS: S1 normal heart sound present and S2 normal heart sound present PERIPHERAL PULSES: Peripheral pulses 2+ throughout GI: COMMON NORMALS: Normal to inspection, nondistended, normoactive bowel sounds present, Soft to palpation, non-tender and no masses PALPATION: Yes Soft to palpation : COMMON NORMALS: Yes no CVA tenderness BLADDER/KIDNEY EXAM: Yes no CVA tenderness Back/Pelvis: COMMON NORMALS: no CVA tenderness LUMBAR SPINE/LOWER BACK: Yes pain with ROM and Yes paraspinal muscle tenderness OTHER: Postop surgical site on lumbar spine showed no erythema or warmth and a Silvadene bandage was covering surgical site. Extremity: COMMON NORMALS: normal to inspection Neuro: COMMON NORMALS: patient oriented x3 and moves all extremities SENSORIUM/ORIENTATION: Yes alert Skin: GENERAL SKIN EXAM: dry skin Course Reevaluation(s): Reevaluation #1: Patient's pain was controlled after given a dose of IV pain meds. She is more comfortable and ready to be discharged home and will contact Dr. Leone's office tomorrow morning for follow-up. Time: 23:50 Vital Signs: Vital signs: Vital Signs Temperature 98.4 F 08/15/21 22:55 Pulse Rate 66 08/15/21 22:55 Respiratory Rate 18 08/15/21 23:46 Blood Pressure 144/57 08/15/21 22:55 Pulse Oximetry 95 08/15/21 22:55 MDM - General Adult MDM Narrative: Medical decision making narrative: Patient is a 61-year-old female that comes to the ED with back pain. Patient had a lumbar surgery by Dr. Leone back on August 06. She still having pain and discomfort. She was seen here for same complaint on August 13. She endorses having some pain rating down her right leg. Denies any cauda equina symptoms. Vitals stable. Labs were performed to recheck her hemoglobin since she did have some post blood loss. Hemoglobin is 10.4 and it was 10.6 on August 13. the rest of labs were unremarkable. Exam of surgical site on lumbar back showed no erythema or warmth noted. Patient was given IV pain meds and Decadron and her pain was well controlled and she was ready for discharge home. Patient diagnosed with status post lumbar spine operation. She contacted Dr. Leone's office earlier today and they told her to increase her dose frequency to every 4 hours for the hydrocodone to try to help with pain. Dr. Leone's office sent in a prescription for Robaxin today and patient is taking gabapentin and prednisone daily as well. Patient told to continue taking her previously prescribed medications and told to contact Dr. Leone's office in the morning. Patient has an appointment scheduled with Dr. Leone on August 21. Return ED precautions given. Patient understood and agree with plan. Lab Data: Attestation: I reviewed the patient's lab results. Labs: Lab Results 08/15/21 08/15/21 21:58 21:58 WBC 11.5 10^3/uL H 10 ^3/uL (4.0-10.0) RBC 3.52 10^6/uL L 10 ^6/uL (4.1-5.3) Hgb 10.4 g/dL L g/dL (11.5-15.3) Hct 33.0 % L % (37.0-47.0) MCV 93.8 fl fl (81-99) MCH 29.5 pg pg (28.0-34.0) MCHC 31.5 g/dL g/dL (30.0-36.0) RDW 14.3 % % (12.1-15.1) Plt Count 496 10^3/cmm H 10 ^3/cmm (130-400) MPV 8.7 fL fL (7.4-10.4) Neut % (Auto) 77.1 % % Lymph % (Auto) 11.1 % % Bibb % (Auto) 5.1 % % Eos % (Auto) 1.3 % % Baso % (Auto) 0.4 % % Neut # (Auto) 8.89 10^3/uL H 10 ^3/uL (1.8-7.7) Lymph # (Auto) 1.3 10^3/uL 10^3/ uL (0.8-4.8) Bibb # (Auto) 0.6 10^3/uL 10^3/ uL (0.2-0.9) Eos # (Auto) 0.2 10^3/uL 10^3/ uL (0.0-0.8) Baso # (Auto) 0.1 10^3/uL 10^3/ uL (0.0-0.1) Nucleated RBC % (a uto) 0 % % Nucleated RBCs # 0.0 /100WBC /100W BC Sodium 134 mmol/L L mmol /L (136-145) Potassium 4.7 mmol/L mmol/L (3.5-5.1) Chloride 94 mmol/L L mmol/ L (98-107) Carbon Dioxide 31 mmol/L H mmol/ L (22-29) Anion Gap 13.7 (5-19) BUN 17 mg/dL mg/dL (8-23) Creatinine 0.5 mg/dL mg/dL (0.5-0.9) GFR Calculation 125.0 mL/min mL/m in (90-130) Glucose 96 mg/dL mg/dL (65-115) Calculated Osmolal ity 279 mOsm/kg L mOs m/kg (285-295) Calcium 8.7 mg/dL mg/dL (8.5-10.5) Total Bilirubin 0.2 mg/dL mg/dL (0.15-1.2) AST 12 U/L U/L (0-32) ALT 12 U/L U/L (0-33) Alkaline Phosphata se 102 IU/L IU/L (35-105) Total Protein 6.5 g/dL L g/dL (6.6-8.7) Albumin 3.5 g/dL g/dL (3.5-5.2) Globulin 3.0 g/dL g/dL (1.3-4.6) Discharge Plan Discharge Patient Disposition: Home Clinical Impression: Status post lumbar spine operation Condition: Stable Prescriptions: No Action ropinirole 4 mg tablet See Rx Instructions .ROUTE .COMPLEX RF: 0 fluoxetine 10 mg capsule 10 mg PO QAM RF: 0 gabapentin 400 mg capsule 400 mg PO TID RF: 0 furosemide [Lasix] 40 mg tablet 40 mg PO QAM RF: 0 hydrocodone-acetaminophen 10-325 mg tablet 1 tab PO Q8H PRN (Reason: Pain) RF: 0 (DME) E0748 Bone growth stimulator See Rx Instructions .Route .MEDSUPPLY Qty: 1 RF: 0 methocarbamol 750 mg tablet 750 mg PO Q8H 14 Days Qty: 42 RF: 0 potassium chloride 10 mEq tablet extended release 10 meq PO QAM RF: 0 estradiol 2 mg tablet 2 mg PO BEDTIME RF: 0 fluticasone propion-salmeterol [Wixela Inhub] 100-50 mcg/dose blister with device 1 inh INHALATION BID RF: 0 albuterol sulfate 90 mcg/actuation HFA aerosol inhaler 2 puff INHALATION Q4H PRN (Reason: Shortness Of Breath) RF: 0 Spiriva Respimat 2.5 mcg/actuation mist 2 puff INHALATION DAILY RF: 0 oxycodone-acetaminophen 10-325 mg tablet 1 - 2 tab PO Q4H PRN (Reason: pain) 7 Days Qty: 40 RF: 0 Valium 5 mg tablet 5 mg PO Q8H PRN (Reason: muscle spasm) 7 Days Qty: 30 RF: 0 Valium 5 mg tablet 5 mg PO Q8H PRN (Reason: muscle spasm) Qty: 6 RF: 0 hydrocodone-acetaminophen 10-325 mg tablet 1 tab PO Q4H PRN (Reason: pain) Qty: 6 RF: 0 metolazone 5 mg Tablet 2.5 mg PO EVERY OTHER DAY RF: 0 hydrocodone-acetaminophen 5-325 mg tablet 1 tab PO Q6H PRN (Reason: pain) Qty: 15 RF: 0 prednisone 20 mg tablet 20 mg PO BID 7 Days Qty: 15 RF: 0 tizanidine 4 mg capsule 4 mg PO Q6H PRN (Reason: muscle spasticity) Qty: 14 RF: 0 Discharge Orders: Discharge ED (Routine); Ordered 08/15/21 Ordered By: Conrad De Leon Discharge Diet: Regular Discharge Activity: Limit activity as instructed Patient Instructions: Opioid Safety Activity Restrictions/Additional Instructions: Follow-up with medical provider as directed. Contact Dr. Leone's office tomorrow morning to let them know about your current pain levels. Continue taking the pain medications as prescribed. Return to the ER or your medical provider if condition worsens. Please read and understand discharge instructions. Thank you for choosing [facility] for your healthcare needs today. Please realize this is an emergency room and that we are providing you with a medical screening exam and this may not be complete and all inclusive of all the testing and or work up that you may need to determine your ailment or severity of your illness. It is very important that you follow up as instructed or that you return to the Emergency Department should you have concerns or if your condition changes or worsens in any way. Coding Level of Care Code ED Machinist Job Setter for Daquan Fontaine Exam Comprehensive
[2021-08-15 22:09] LABS: Basophils # 0.1 10^3/uL (0.0-0.1); Basophils % 0.4 %; Eosinophils # 0.2 10^3/uL (0.0-0.8); Eosinophils % 1.3 %; Hemoglobin 10.4 g/dL (11.5-15.3); Lymphocytes # 1.3 10^3/uL (0.8-4.8); Lymphocytes % 11.1 %; Mean Corpuscular HGB Conc 31.5 g/dL (30.0-36.0); Mean Corpuscular Hemoglobin 29.5 pg (28.0-34.0); Mean Corpuscular Volume 93.8 fl (81-99); Mean Platelet Volume 8.7 fL (7.4-10.4); Monocytes # 0.6 10^3/uL (0.2-0.9); Monocytes % 5.1 %; Neutrophils # 8.89 10^3/uL (1.8-7.7); Neutrophils % 77.1 %; Nucleated Red Blood Cells % 0 %; Platelet Count 496 10^3/cmm (130-400); Red Blood Count 3.52 10^6/uL (4.1-5.3); Red Cell Distribution Width 14.3 % (12.1-15.1); White Blood Count 11.5 10^3/uL (4.0-10.0)
[2021-08-15] MEDS: ondansetron 2 mg/ML SDV 2 mL 4 MG IVP (22:10)
[2021-08-15] MEDS: dexamethasone 10 mg/mL INJ IVP (22:10)
[2021-08-15] MEDS: orphenadrine 30 mg/mL Inj 2 mL 60 MG IVP (22:10)
[2021-08-15] MEDS: morphine 4 mg/mL SDV 1 mL IVP (22:10)
[2021-08-15 22:31] LABS: Alanine Aminotransferase 12 U/L (0-33); Albumin Level 3.5 g/dL (3.5-5.2); Alkaline Phosphatase 102 IU/L (35-105); Anion Gap 13.7 (5-19); Aspartate Amino Transferase 12 U/L (0-32); Blood Urea Nitrogen 17 mg/dL (8-23); Calcium 8.7 mg/dL (8.5-10.5); Carbon Dioxide 31 mmol/L (22-29); Chloride 94 mmol/L (98-107); Glucose 96 mg/dL (65-115); Osmolality Calculated 279 mOsm/kg (285-295); Potassium 4.7 mmol/L (3.5-5.1); Sodium 134 mmol/L (136-145); Total Bilirubin 0.2 mg/dL (0.15-1.2); Total Protein 6.5 g/dL (6.6-8.7)
[2021-08-15] MEDS: HYDROmorphone 1 mg/mL INJ 1 mL IVP (23:46)
== END 2021-08-16 | disposition home or self-care (01) ==
PROVIDERS: Emergency Provider Physician Assistant
DX: M54.9 Dorsalgia, unspecified (principal); Z98.890 Other specified postprocedural states; J44.9 Chronic obstructive pulmonary disease, unspecified; Z87.891 Personal history of nicotine dependence
CPT/HCPCS: 80053; 85025; 96374; 96375; 99284; J1100; J1170; J2270; J2360; J2405

== ENCOUNTER 2021-08-20 18:23 | Inpatient (IN) | payer MEDICARE, SELFPAY ==
--- NOTE | 2021-08-20 18:25 | XRR_ITS ---
PROCEDURE INFORMATION: Exam: XR Chest Exam date and time: 08/20/2021 6:25 PM Age: 61 years old Clinical indication: Cough; Prior surgery; Patient HX: Cp, back pain TECHNIQUE: Imaging protocol: XR of the chest. Views: 1 view. COMPARISON: CR XR chest 1V portable [id number] 08/07/2021 6:35 AM FINDINGS: Tubes, catheters and devices: Thoracic epidural stimulator device present. Lungs: Patchy opacities in the left lower lobe are new from prior. Background mild severity emphysema. Pleural spaces: Unremarkable. No pleural effusion. No pneumothorax. Heart/Mediastinum: Unremarkable. No cardiomegaly. Bones/joints: Partially visible thoracolumbar spine fusion hardware. XR/XR chest 1V portable [id number] IMPRESSION: Left lower lobe pneumonia suspected new from prior imaging. Radiation Dose CTDIVOL = (mGy): DLP = (mGy-cm)
[2021-08-20 18:41] VITALS: BP 128/69; PULSE 108; RESP 20; TEMP 37.2; O2SAT 91; BMI 34.3
[2021-08-20 20:12] LABS: Basophils # 0.1 10^3/uL (0.0-0.1); Basophils % 0.3 %; Hematocrit 37.8 % (37.0-47.0); Hemoglobin 11.1 g/dL (11.5-15.3); Lymphocytes # 0.6 10^3/uL (0.8-4.8); Lymphocytes % 2.5 %; Mean Corpuscular HGB Conc 29.4 g/dL (30.0-36.0); Mean Corpuscular Hemoglobin 29.8 pg (28.0-34.0); Mean Corpuscular Volume 101.3 fl (81-99); Mean Platelet Volume 8.7 fL (7.4-10.4); Monocytes # 1.6 10^3/uL (0.2-0.9); Monocytes % 7.1 %; Neutrophils # 19.49 10^3/uL (1.8-7.7); Neutrophils % 87.4 %; Nucleated Red Blood Cells % 0.2 %; Platelet Count 531 10^3/cmm (130-400); Red Blood Count 3.73 10^6/uL (4.1-5.3); Red Cell Distribution Width 15.1 % (12.1-15.1); White Blood Count 22.3 10^3/uL (4.0-10.0)
[2021-08-20 20:38] LABS: Troponin T (5th) Once 31 ng/L (0-10)
[2021-08-20 20:39] LABS: Alanine Aminotransferase 13 U/L (0-33); Albumin Level 3.6 g/dL (3.5-5.2); Alkaline Phosphatase 156 IU/L (35-105); Anion Gap 16.8 (5-19); Aspartate Amino Transferase 15 U/L (0-32); Blood Urea Nitrogen 18 mg/dL (8-23); Calcium 8.4 mg/dL (8.5-10.5); Carbon Dioxide 29 mmol/L (22-29); Chloride 89 mmol/L (98-107); Creatinine Clr Calc Pharmacy 106.0604; Globulin 2.1 g/dL (1.3-4.6); Glomerular Filtration Rate 101.3 mL/min (90-130); Glucose 96 mg/dL (65-115); Osmolality Calculated 272 mOsm/kg (285-295); Potassium 4.8 mmol/L (3.5-5.1); Sodium 130 mmol/L (136-145); Total Bilirubin 0.3 mg/dL (0.15-1.2); Total Protein 5.7 g/dL (6.6-8.7)
[2021-08-20 21:28] VITALS: PULSE 97; RESP 20; TEMP 36.8; O2SAT 95
[2021-08-20 21:37] VITALS: BP 119/42
--- NOTE | 2021-08-20 21:46 | ED_ITS ---
HPI - General Adult General: Chief complaint: General Medical Stated complaint: Chest Congestion Time Seen by Provider: 08/20/21 21:27 History of Present Illness: HPI narrative: Patient is a 61-year-old female with history of COPD, recent T10 spinal fusion with L3-S1 decompression presenting to the emergency room with new onset of chest pain x1 day in the setting of fever and cough x7 days. Patient reported fever at home of 102 degrees. Patient was brought into the emergency room for eval. Of note, patient has been coughing for the last 7 days. Denies any sputum production. Patient went to emergency room twice for evaluation of ongoing back pain. Surendra antonio says that her back pain has significantly improved. Onset:1 day ago Duration: 1 day Location:home Severity:moderate/severe Review of Systems Narrative: Constitutional: +fever, no chills. HEENT: No vision changes CV: +chest pain, no palpitations PULM: +nonproductive cough, no dyspnea. GI: No abdominal pain, no N/V/D. : No dysuria MSKEL: No muscle pain SKIN: No new rashes, no lesions. NEURO: No headache, no focal weakness. HEME: No visible bruises PSYCH: Normal mood PFSH ED PFSH: Medical History COPD (chronic obstructive pulmonary disease) Gall bladder disease Status post insertion of nerve stimulator 2019 Surgical History History of section History of cholecystectomy History of hysterectomy History of spinal surgery History of tubal ligation Family History Other Cancer Diabetes Social History Smoking and tobacco status: former smoker Alcohol intake: former Marital status: Number of children: 2 service: No History of recent travel: No Female Reproductive History: Date of last menstrual period: 01/25/21 Physical Exam Narrative: EXAM NARRATIVE: Head: Atraumatic Eyes: PERRL, conjunctiva without injection ENT: Mucous membrane moist NECK: Supple, ROM intact LUNGS: Coarse breath sounds L side CV: RRR ABDOMEN: Soft, nontender in all quadrants EXTREMITY: Normal ROM SKIN: No rash or erythema NEURO: Awake and alert, no focal motor deficits PSYCH: Normal mood and affect Course Vital Signs: Vital signs: Vital Signs Temperature 100.8 F H 08/23/21 18:36 Pulse Rate 101 H 08/23/21 18:36 Respiratory Rate 15 08/23/21 16:00 Blood Pressure 78/51 08/23/21 18:36 Pulse Oximetry 95 08/23/21 16:00 MDM - General Adult MDM Narrative: Medical decision making narrative: 61-year-old female prednisone for COPD, recent hospitalization for spinal procedures presenting to emergency room with chest pain x1 day in setting of nonproductive cough and fever. On exam, patient has decreased breath sounds in the left side. Patient is noted to be hypoxemic to 91 to 92% on room air. XR showed possible left lobar consolidation. Patient has a white count of 22.3K. Given recent hospitalization, will treat as hospital-acquired pneumonia. Troponin of 31 initially, will trend. EKG showing regular sinus rhythm at HT of [77]. Normal axis. No ST elevations/depressions to suggest coronary occlusion. Normal IA, QRS, QT intervals. S/p vancomycine, cefepime, and IVF Disposition: Admission for serial observation. Lab Data: Labs: Lab Results 08/20/21 08/20/21 08/20/21 19:50 19:50 19:50 WBC 22.3 10^3/uL H 10 ^3/uL (4.0-10.0) RBC 3.73 10^6/uL L 10 ^6/uL (4.1-5.3) Hgb 11.1 g/dL L g/dL (11.5-15.3) Hct 37.8 % % (37.0-47.0) MCV 101.3 fl H fl (81-99) MCH 29.8 pg pg (28.0-34.0) MCHC 29.4 g/dL L g/dL (30.0-36.0) RDW 15.1 % % (12.1-15.1) Plt Count 531 10^3/cmm H 10 ^3/cmm (130-400) MPV 8.7 fL fL (7.4-10.4) Neut % (Auto) 87.4 % % Lymph % (Auto) 2.5 % % [place] % (Auto) 7.1 % % Eos % (Auto) 0.0 % % Baso % (Auto) 0.3 % % Neut # (Auto) 19.49 10^3/uL H 1 0^3/uL (1.8-7.7) Lymph # (Auto) 0.6 10^3/uL L 10^ 3/uL (0.8-4.8) [place]on # (Auto) 1.6 10^3/uL H 10^ 3/uL (0.2-0.9) Eos # (Auto) 0.0 10^3/uL 10^3/ uL (0.0-0.8) Baso # (Auto) 0.1 10^3/uL 10^3/ uL (0.0-0.1) Nucleated RBC % (a uto) 0.2 % % Nucleated RBCs # 0.0 /100WBC /100W BC Sodium 130 mmol/L L mmol /L (136-145) Potassium 4.8 mmol/L mmol/L (3.5-5.1) Chloride 89 mmol/L L mmol/ L (98-107) Carbon Dioxide 29 mmol/L mmol/L (22-29) Anion Gap 16.8 (5-19) BUN 18 mg/dL mg/dL (8-23) Creatinine 0.6 mg/dL mg/dL (0.5-0.9) GFR Calculation 101.3 mL/min mL/m in (90-130) Glucose 96 mg/dL mg/dL (65-115) Calculated Osmolal ity 272 mOsm/kg L mOs m/kg (285-295) Calcium 8.4 mg/dL L mg/dL (8.5-10.5) Total Bilirubin 0.3 mg/dL mg/dL (0.15-1.2) AST 15 U/L U/L (0-32) ALT 13 U/L U/L (0-33) Alkaline Phosphata se 156 IU/L H IU/L (35-105) Troponin T Gen 5 n g/L 31 ng/L H ng/L (0-10) Troponin T 120 Min [place] Troponin T Total Protein 5.7 g/dL L g/dL (6.6-8.7) Albumin 3.6 g/dL g/dL (3.5-5.2) Globulin 2.1 g/dL g/dL (1.3-4.6) 08/20/21 22:23 WBC RBC Hgb Hct MCV MCH MCHC RDW Plt Count MPV Neut % (Auto) Lymph % (Auto) [place] % (Auto) Eos % (Auto) Baso % (Auto) Neut # (Auto) Lymph # (Auto) [place] # (Auto) Eos # (Auto) Baso # (Auto) Nucleated RBC % (a uto) Nucleated RBCs # Sodium Potassium Chloride Carbon Dioxide Anion Gap BUN Creatinine GFR Calculation Glucose Calculated Osmolal ity Calcium Total Bilirubin AST ALT Alkaline Phosphata se Troponin T Gen 5 n g/L Troponin T 120 Min [place] 28.84 ng/L H ng/L (0-10) [place] Troponin T -2.16 ABS# L ABS# (0-10) Total Protein Albumin Globulin Imaging Data^: Other Imaging: Radiologist's impression: [email or web address] [address] [id number] ReportSigned Patient: Camilla Dobbs #: [id number]: [id number]#:[id number]/Sex: 61 / FADM Date: 08/20/21[facility]/Bed:Attending Dr: Ordering Provider/Ordering MD: Shukri Owens MD Date of Service: 08/20/21 Procedure(s): XR chest 1V portable [id number] Accession Number(s): [id number] Report Number: [id number] PROCEDURE INFORMATION: Exam: XR Chest Exam date and time: 08/20/2021 6:25 PM Age: 61 years old Clinical indication: Cough; Prior surgery; Patient HX: Cp, back pain TECHNIQUE: Imaging protocol: XR of the chest. Views: 1 view. COMPARISON: CR XR chest 1V portable [id number] 08/07/2021 6:35 AM FINDINGS: Tubes, catheters and devices: Thoracic epidural stimulator device present. Lungs: Patchy opacities in the left lower lobe are new from prior. Background mild severity emphysema. Pleural spaces: Unremarkable. No pleural effusion. No pneumothorax. Heart/Mediastinum: Unremarkable. No cardiomegaly. Bones/joints: Partially visible thoracolumbar spine fusion hardware. XR/XR chest 1V portable [id number] IMPRESSION: Left lower lobe pneumonia suspected new from prior imaging. Radiation Dose CTDIVOL = (mGy): DLP = (mGy-cm) Dictated By:Ana Franco By:Ana Franco Date/Time:08/20/213DD/ 24 Discharge Plan Discharge Patient Disposition: Admitted As Inpatient Admit Provider: Elo Castillo Clinical Impression: Dyspnea, Leukocytosis Pneumonia Qualifiers: Pneumonia type: due to unspecified organism Laterality: left Lung location: lower lobe of lung Qualified Code(s): J18.9 - Pneumonia, unspecified organism Condition: Stable Coding Level of Care Code ED Executive Advisor for Daquan Fontaine
--- NOTE | 2021-08-20 21:50 | ECG_ITS ---
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
[2021-08-20] MEDS: sodium chloride 0.9% 1,000 ML 999 ML IV (22:49)
[2021-08-20] MEDS: cefepime 1,000 MG in sodium chloride 0.9% (plus) 50 ML 100 MG IV (22:49)
[2021-08-20 23:24] VITALS: PULSE 85; O2SAT 96
[2021-08-20] MEDS: vancomycin 1,000 MG in sodium chloride 0.9% 250 ML 250 MG IV (23:35)
--- NOTE | 2021-08-20 23:44 | ECG_ITS ---
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
[2021-08-20 23:59] VITALS: BP 166/80; RESP 16; TEMP 36.7; O2SAT 93
[2021-08-21] VITALS (14 sets, daily range): BP systolic 109–134; BP diastolic 51–75; PULSE 70–107; RESP 16–18; TEMP 36.7–38.5; O2SAT 89–98
[2021-08-21 00:01] LABS: Troponin 5 2HR 28.84 ng/L (0-10); Troponin 5 2HR Delta -2.16 ABS# (0-10)
--- NOTE | 2021-08-21 00:30 | PC.PHAR ---
Pharmacokinetic dosing service Date: 08/21/21 Time: 1230 Objective: Patient: OMAYRA COOK Floor: 256-1 Age: 61 yo Serum creatinine: 0.6 mg/dL Height: 64.0 Inches Weight (kg): 90.718 Diagnosis: Relevant medical/social history: Cultures and sensitivities: Other labs: Assessment: IBW (kg): 54.70 Dosing wt(kg): 90.718 Estimated Creatinine clearance (ml/min): 83.9 CRCL method: Cockcroft and Gault using ibw(default). Drug selected: Vancomycin Loading dose (mg): 0 Vd (liters): 81.6 (factor used: 0.9 L/kg) Sonido (hr-1): 0.074 Half life (hrs): 9.37 Recommended dose: 1000 mg Interval: 8 hrs Infusion time (hrs): 1.5 Predicted peak (mcg/mL): 26.0 Predicted trough (mcg/mL): 16.07 Total body weight is being used for vancomycin dosing. Renal function is stable [ ] /unstable [ ] Recommendations: Give Vancomycin 1000 mg q 8 hrs with an expected Cpeak of 26.0 mcg/ml and an expected Ctrough of 16.07 mcg/ml Renal dosing of other antibiotics (review renal dosing of other medications and list guidelines here): Thank you for the consult, will continue to follow. Signature: Amy Gordillo [facility]
[2021-08-21] MEDS: morphine 4 mg/mL SDV 1 mL 2 MG IVP ×4 (02:24→20:26)
[2021-08-21] MEDS: acetaminophen 325 mg Tablet 650 MG PO ×2 (02:24→20:25)
[2021-08-21] MEDS: enoxaparin 40 mg/0.4 mL Syringe SUBCUT (02:25)
[2021-08-21 03:00] LABS: Basophils % 0.2 %; Hematocrit 34.8 % (37.0-47.0); Hemoglobin 10.4 g/dL (11.5-15.3); Lymphocytes # 1.1 10^3/uL (0.8-4.8); Lymphocytes % 5.4 %; Mean Corpuscular HGB Conc 29.9 g/dL (30.0-36.0); Mean Corpuscular Hemoglobin 29.5 pg (28.0-34.0); Mean Corpuscular Volume 98.9 fl (81-99); Monocytes # 0.8 10^3/uL (0.2-0.9); Monocytes % 3.9 %; Neutrophils # 17.79 10^3/uL (1.8-7.7); Neutrophils % 88.4 %; Nucleated Red Blood Cells % 0 %; Platelet Count 528 10^3/cmm (130-400); Red Blood Count 3.52 10^6/uL (4.1-5.3); Red Cell Distribution Width 15.2 % (12.1-15.1); White Blood Count 20.1 10^3/uL (4.0-10.0)
[2021-08-21 03:30] LABS: Procalcitonin 2.58 ng/mL (0-0.5)
[2021-08-21 03:31] LABS: Alanine Aminotransferase 11 U/L (0-33); Albumin Level 2.9 g/dL (3.5-5.2); Alkaline Phosphatase 136 IU/L (35-105); Anion Gap 16.4 (5-19); Aspartate Amino Transferase 13 U/L (0-32); Blood Urea Nitrogen 15 mg/dL (8-23); Calcium 7.8 mg/dL (8.5-10.5); Carbon Dioxide 29 mmol/L (22-29); Chloride 96 mmol/L (98-107); Creatinine Clr Calc Pharmacy 106.0604; Globulin 2.3 g/dL (1.3-4.6); Glomerular Filtration Rate 101.3 mL/min (90-130); Glucose 100 mg/dL (65-115); Osmolality Calculated 285 mOsm/kg (285-295); Potassium 4.4 mmol/L (3.5-5.1); Sodium 137 mmol/L (136-145); Total Bilirubin 0.3 mg/dL (0.15-1.2); Total Protein 5.2 g/dL (6.6-8.7)
[2021-08-21 03:32] LABS: Troponin 5 6HR 24.67 ng/L (0-10)
--- NOTE | 2021-08-21 03:43 | ECG_ITS ---
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
[2021-08-21 04:10] LABS: Lactate (Lactic Acid level) 4.8 mmol/L (0.5-2.2)
[2021-08-21] MEDS: HYDROcodone-acetaminophen 10-325 mg Tablet 1 TAB PO ×2 (05:10→13:09)
[2021-08-21 05:35] LABS: Troponin 5 6HR Delta -4.17 ng/L (0-12)
[2021-08-21] MEDS: sodium chloride 0.9% 1,000 ML 75 ML IV ×2 (06:24→20:08)
--- NOTE | 2021-08-21 07:06 | PM.HP ---
Providers/Chief Complaint Admitting Physician: Elo Castillo MD Chief Complaint: Chest Congestion History of Present Illness Nova Dobbs is a 61 year old female with recent T10 to pelvis spinal fusion and decompression L3-S1 on August 06, 2021, recently discharged on August 12, 2021 with recent hospital course complicated by anemia. Presents to the emergency room today complaining of 5 days of fever, increased cough, and increased dyspnea. Patient has a history of COPD, typically uses supplemental O2 and multiple inhalers at home. States that expectoration has not changed more than usual. Chest x-ray shows left lower lobe infiltrate. Surgical's wound site is healing well. No noted discharge at site. States back pain is continuing to improve, no erythema swelling or tenderness noted over back. Her sister, who is an RN has been changing dressings at home. Review of Systems General: Reports: 10 or more systems reviewed and unremarkable except in HPI and below Const: Denies: fever(s), chills or body aches Eyes: Denies: change in vision, blurry vision or photophobia ENMT: Reports: hoarseness; Denies: throat pain, enlarged tonsils, odynophagia or nasal congestion Card: Denies: chest pain, palpitations, irregular heart rhythm, edema, swelling of feet/ankles, lightheadedness, pre-syncope, dyspnea on exertion or orthopnea Resp: Denies: dyspnea, productive cough, non-productive cough, wheezing, stridor, pain on inspiration, change in phlegm color, hemoptysis or chest congestion GI: Denies: abdominal pain, nausea, vomiting, hematemesis, coffee ground emesis, dysphagia, heartburn, diarrhea, constipation, GI cramping, change in stool character, hematochezia or melena : Denies: flank pain, difficulty voiding, dysuria, urinary frequency, urinary urgency, urinary hesitancy or hematuria Musc: Denies: neck pain, back pain, extremity pain, joint swelling, joint warmth or deformity Neuro: Denies: headache(s), numbness in extremities, weakness in extremities, sensory changes, difficulty walking, frequent falls, dizziness, vertigo, behavioral changes, Slurred speech present or seizure-like activity Psych: Denies: anxiety, depression, suicidal ideation or homicidal ideation Endo: Denies: polyuria, polydipsia, tired all the time, cold intolerance or hot flashes Charbel/Lymph: Denies: easy bruising or easy bleeding Medications/Allergies Home Medications Medication Instructions Recorded Confirmed Last Taken Type fluoxetine 10 mg capsule 10 mg PO QAM 03/27/21 08/21/21 08/20/21 History furosemide 40 mg tablet 40 mg PO PRN PRN 03/27/21 08/21/21 05/09/21 History gabapentin 400 mg capsule 400 mg PO TID 03/27/21 08/21/21 08/20/21 History hydrocodone 10 mg-acetaminophen 1 tab PO Q8H PRN 03/27/21 08/07/21 05/09/21 History 325 mg tablet ropinirole 4 mg tablet See Rx Instructions .ROUTE .COMPLEX 03/27/21 08/21/21 08/20/21 History metolazone 2.5 mg PO EVERY OTHER DAY 05/09/21 08/06/21 08/06/21 05:00 History estradiol 2 mg PO BEDTIME 08/01/21 08/21/21 08/20/21 History fluticasone propion-salmeterol 1 inh INHALATION BID 08/01/21 08/21/21 08/20/21 History [Wixela Inhub] potassium chloride 10 meq PO PRN PRN 08/01/21 08/07/21 Unknown History [id number] Bone growth stimulator #1 ea 08/03/21 08/07/21 Unknown Rx Spiriva Respimat 2 puff INHALATION DAILY 08/07/21 08/07/21 Unknown History albuterol sulfate 2 puff INHALATION Q4H PRN 08/07/21 08/07/21 Unknown History diazepam [Valium] 5 mg PO Q8H PRN #6 tab 08/12/21 08/21/21 08/19/21 Rx hydrocodone-acetaminophen 1 tab PO Q4H PRN #6 tab 08/12/21 Unknown Rx hydrocodone-acetaminophen 1 tab PO Q6H PRN #15 tab 08/13/21 08/21/21 08/19/21 Rx methocarbamol 750 mg tablet 750 mg PO Q8H 14 Days #42 tab 08/15/21 08/21/21 08/19/21 Rx Allergies Allergy/AdvReac Type Severity Reaction Status Date / Time latex Allergy ALGY-Bliste Verified 08/07/21 09:41 r PFSH Acute PFSH: Medical History COPD (chronic obstructive pulmonary disease) Gall bladder disease Status post insertion of nerve stimulator 2018 Surgical History History of section History of cholecystectomy History of hysterectomy History of spinal surgery History of tubal ligation Family History Other Cancer Diabetes Social History Smoking and tobacco status: former smoker Alcohol intake: former Marital status: Number of children: 2 service: No History of recent travel: No Female Reproductive History: Date of last menstrual period: 01/25/21 Vitals/I&O/Wt Last Vital Signs Temp 98.9 F 08/21/21 04:00 Pulse 101 H 08/21/21 04:00 Resp 18 08/21/21 04:00 BP 120/54 08/21/21 04:00 Pulse Ox 89 L 08/21/21 04:00 08/20/21 08/21/21 08/21/21 22:59 06:59 14:59 Intake Total 50 / 50 Output Total 0 / 0 Balance 50 / 50 Weight last 48 hrs Weight 90.945 kg Weight 90.718 kg Physical Exam Narrative: EXAM NARRATIVE: General: No acute distress, AO x3 HEENT: PERRLA, pupils bilaterally equal and reactive, pallors not present Chest: Normal vesicular breath sounds, no added sounds, equal good air entry bilaterally CVS: S1-S2 regular, no murmurs, no tachycardia, no gallops, no rubs Abdomen: Soft, nontender, no organomegaly, bowel sounds present Neuro: No focal deficits, no facial deformity, AO x3, power 5/5 in all limbs Extremities: Healthy surgical dressing present on spine, no discharge noted. No obvious site of erythema swelling or tenderness. Data : 08/21/21 02:30 08/21/21 02:30 Micro: Microbiology 08/20/21 22:45 Blood Culture - Preliminary Blood SPECIMEN COLLECTED 08/20/21 22:20 Blood Culture - Preliminary Blood SPECIMEN COLLECTED A&P Assessment and plan (1) Sepsis: Status: Acute Qualifiers: Sepsis type: sepsis due to unspecified organism Sepsis acute organ dysfunction status: with acute organ dysfunction Severe sepsis acute organ dysfunction type: acute respiratory failure Acute respiratory failure type: with hypoxia Severe sepsis shock status: without septic shock Qualified Code(s): A41.9 - Sepsis, unspecified organism; R65.20 - Severe sepsis without septic shock; J96.01 - Acute respiratory failure with hypoxia (2) Pneumonia: Status: Acute Qualifiers: Pneumonia type: due to unspecified organism Laterality: left Lung location: lower lobe of lung Qualified Code(s): J18.9 - Pneumonia, unspecified organism (3) Status post lumbar spine operation: Status: Acute (4) COPD (chronic obstructive pulmonary disease): Status: Acute Qualifiers: COPD type: unspecified COPD Qualified Code(s): J44.9 - Chronic obstructive pulmonary disease, unspecified Additional A&P Information Admit to [facility] in view of sepsis Meet sepsis criteria by way of leukocytosis, elevated lactate and fever. Sepsis likely related to left lower lobe pneumonia as seen on chest x-ray. Started on cefepime and vancomycin in view of healthcare associated pneumonia. Atypical coverage with azithromycin Blood culture taken prior to starting antibiotic. Sepsis bolus not currently needed as patient hemodynamically stable, start normal saline at 75 cc an hour Check sputum cx, Covid PCR, influenza AMB antigens, MRSA PCR screen, urine bacterial and Legionella antigens. Patient has received COVID-19 Oliver vaccine in Dec 2020. 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
[2021-08-21 07:26] LABS: SARS Covid-2 Antigen Negative (Negative)
[2021-08-21] MEDS: vancomycin 1,000 MG in sodium chloride 0.9% 250 ML 250 MG IV ×2 (08:25→16:39)
--- NOTE | 2021-08-21 08:54 | PM.CONSULT ---
Providers/Reason For Consult Consulting Physician/Specialty*: hospitalist Reason for Consult*: s/p spine fusion / Pneumonia Attending Physician: Zeb Wong MD History of Present Illness History of Present Illness Nova Dobbs is a 61 year old female 2 weeks out from T10 to the pelvis fusion. Patient has been admitted with pneumonia.patient has been coughing for the last 7 days. Denies any sputum production. Patient went to emergency room twice for evaluation of ongoing back pain. Patient says that her back pain has significantly improved. Review of Systems General: Reports: 10 or more systems reviewed and unremarkable except in HPI and below Narrative: Constitutional: +fever, no chills. HEENT: No vision changes CV: +chest pain, no palpitations PULM: +nonproductive cough, no dyspnea. GI: No abdominal pain, no N/V/D. : No dysuria MSKEL: No muscle pain SKIN: No new rashes, no lesions. NEURO: No headache, no focal weakness. HEME: No visible bruises PSYCH: Normal mood Const: Denies: fever(s), chills or body aches Eyes: Denies: change in vision, blurry vision or photophobia ENMT: Reports: hoarseness; Denies: throat pain, enlarged tonsils, odynophagia or nasal congestion Card: Denies: chest pain, palpitations, irregular heart rhythm, edema, swelling of feet/ankles, lightheadedness, pre-syncope, dyspnea on exertion or orthopnea Resp: Denies: dyspnea, productive cough, non-productive cough, wheezing, stridor, pain on inspiration, change in phlegm color, hemoptysis or chest congestion GI: Denies: abdominal pain, nausea, vomiting, hematemesis, coffee ground emesis, dysphagia, heartburn, diarrhea, constipation, GI cramping, change in stool character, hematochezia or melena : Denies: flank pain, difficulty voiding, dysuria, urinary frequency, urinary urgency, urinary hesitancy or hematuria Musc: Denies: neck pain, back pain, extremity pain, joint swelling, joint warmth or deformity Neuro: Denies: headache(s), numbness in extremities, weakness in extremities, sensory changes, difficulty walking, frequent falls, dizziness, vertigo, behavioral changes, Slurred speech present or seizure-like activity Psych: Denies: anxiety, depression, suicidal ideation or homicidal ideation Endo: Denies: polyuria, polydipsia, tired all the time, cold intolerance or hot flashes Charbel/Lymph: Denies: easy bruising or easy bleeding Meds/Allergies Home Medications and Allergies Home Medications Medication Instructions Recorded Confirmed Last Taken Type fluoxetine 10 mg capsule 10 mg PO QAM 03/27/21 08/21/21 08/20/21 History furosemide 40 mg tablet 40 mg PO PRN PRN 03/27/21 08/21/21 05/09/21 History gabapentin 400 mg capsule 400 mg PO TID 03/27/21 08/21/21 08/20/21 History hydrocodone 10 mg-acetaminophen 1 tab PO Q8H PRN 03/27/21 08/07/21 05/09/21 History 325 mg tablet ropinirole 4 mg tablet See Rx Instructions .ROUTE .COMPLEX 03/27/21 08/21/21 08/20/21 History metolazone 2.5 mg PO EVERY OTHER DAY 05/09/21 08/06/21 08/06/21 05:00 History estradiol 2 mg PO BEDTIME 08/01/21 08/21/21 08/20/21 History fluticasone propion-salmeterol 1 inh INHALATION BID 08/01/21 08/21/21 08/20/21 History [Wixela Inhub] potassium chloride 10 meq PO PRN PRN 08/01/21 08/07/21 Unknown History [id number] Bone growth stimulator #1 ea 08/03/21 08/07/21 Unknown Rx Spiriva Respimat 2 puff INHALATION DAILY 08/07/21 08/07/21 Unknown History albuterol sulfate 2 puff INHALATION Q4H PRN 08/07/21 08/07/21 Unknown History diazepam [Valium] 5 mg PO Q8H PRN #6 tab 08/12/21 08/21/21 08/19/21 Rx hydrocodone-acetaminophen 1 tab PO Q4H PRN #6 tab 08/12/21 Unknown Rx hydrocodone-acetaminophen 1 tab PO Q6H PRN #15 tab 08/13/21 08/21/21 08/19/21 Rx methocarbamol 750 mg tablet 750 mg PO Q8H 14 Days #42 tab 08/15/21 08/21/21 08/19/21 Rx Allergies Allergy/AdvReac Type Severity Reaction Status Date / Time latex Allergy GAMALIEL-Dread Verified 08/07/21 09:41 r Current Medications Current Medications Generic Name Dose Route Start Last Admin Trade Name Freq PRN Reason Stop Dose Admin Acetaminophen 650 mg 08/21/21 00:07 08/21/21 02:24 Acetaminophen 325 Mg Tablet PO 650 mg Q6H PRN Administration Mild/Mod Pain Or Temp >/= 101 Hydrocodone Bitart/Acetaminophen 1 tab 08/21/21 04:23 08/21/21 05:10 Hydrocodone-Acetaminophen 10-325 Mg Tablet PO 1 tab Q8H PRN Administration MODERATE PAIN Enoxaparin Sodium 40 mg 08/21/21 01:00 08/21/21 02:25 Enoxaparin 40 Mg/0.4 Ml Syringe SUBCUT 40 mg Q24H URBAN Administration Vancomycin HCl 1,000 mg/ 250 mls @ 250 mls/hr 08/21/21 08:00 08/21/21 08:25 Sodium Chloride IV 250 mls/hr Q8H URBAN Administration Sodium Chloride 1,000 mls @ 75 mls/hr 08/21/21 05:15 08/21/21 06:24 Sodium Chloride 0.9% IV 75 mls/hr .[id number] URBAN Administration Morphine Sulfate 2 mg 08/21/21 00:07 08/21/21 02:24 Morphine 4 Mg/Ml Sdv 1 Ml IVP 2 mg Q4H PRN Administration SEVERE PAIN PFSH Acute PFSH: Medical History COPD (chronic obstructive pulmonary disease) Gall bladder disease Status post insertion of nerve stimulator 2019 Surgical History History of section History of cholecystectomy History of hysterectomy History of spinal surgery History of tubal ligation Family History Other Cancer Diabetes Social History Smoking and tobacco status: former smoker Alcohol intake: former Marital status: Number of children: 2 service: No History of recent travel: No Female Reproductive History: Date of last menstrual period: 01/25/21 Vitals/I&O/Wt Last Vital Signs Temp 98.4 F 08/21/21 07:36 Pulse 92 08/21/21 08:40 Resp 18 08/21/21 08:40 BP 119/75 08/21/21 07:36 Pulse Ox 98 08/21/21 08:40 08/20/21 08/21/21 08/21/21 22:59 06:59 14:59 Intake Total 50 / 50 Output Total 0 / 0 Balance 50 / 50 Weight last 48 hrs Weight 200 lb 8 oz Weight 200 lb Physical Exam Narrative: EXAM NARRATIVE: CONSTITUTIONAL: The patient is a normal appearing [] in no apparent distress. GENERAL: Patient in no acute distress. CARDIAC: Regular rate and rhythm. CHEST: Normal inspiratory effort, normal respiratory rate. ABDOMEN: Soft and nontender. SKIN: Clear, warm and intact. NEURO?PSYCH: The patient is alert and oriented to person, place and time. Sensorv /SILT Motor StrengthShoulder abduction C5 5/5Wrist extension C6 5/5Elbow extension C7 5/5Hand Boot And Shoe Repairman C8 5/5Finger abduction T15/5 Radial/ Ulnar/ Median n intact LowerSensory (SILT)Motor StrengthHin flexion L2/3Ant/inner thigh 5/5Hip adduction L2/3 5/5Knee extension L4 Lat thigh, 5/5Toe dorsiflexion L5 5/5Ankle dorsiflexion L5/ [id number] flexion S1 5/5 DTRBleeps 2+Triceps 2+Brachioradialis 2+Patellar 2+Achilles 2+ MUSCULOSKELETAL: [] UPPEREXTREMITIES: The patient had full active ROM in fingers, wrist, elbow, and shoulder. The patient demonstrated ability to fully flex/extend/abduct/adduct fingers, make ok sign, cross 2nd/3rd digits, extend 1st digit fully.. Radial pulse 2+, CR<2 seconds. LOWER EXTREMITIES: Pt has full, active ROM of toes, ankle, knee, and hip. Dorsalis pedis/posterior tibialis pulses 2+, CR<2 seconds. SPINE: Skin warm, dry, intact. 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
[2021-08-21] MEDS: pantoprazole DR 40 mg Tablet PO (09:56)
[2021-08-21] MEDS: azithromycin 250 mg Tablet 500 MG PO (09:56)
--- NOTE | 2021-08-21 11:13 | PC.PHAR ---
Addendum entered by Conchita Bain 08/21/21 11:17: pt states she is no longer taking the metolazone 2.5mg eod ext med history shows last filled on 07/13/21 30d/s Original Note: pt states her sister abebe helps her with her medications-pts sister brought in most of the pts medication bottles and verified all the meds-notes are made in the pharmacy comments-pts sister states the pt is taking gabapentin 800mg tid states the mt view ed increased bottle had 400mg tid filled on 07/13/21 30d/s-pts sister states the pt just started back in the prednisone yesterday
[2021-08-21] MEDS: cefepime 2,000 MG in sodium chloride 0.9% (plus) 50 ML 100 MG IV ×2 (12:06→23:23)
[2021-08-21 14:08] LABS: Influenza A by IFA Negative (Negative); Influenza B by IFA Negative (Negative)
[2021-08-21 14:17] LABS: Coronavirus Test Green County Not Detected
[2021-08-21] MEDS: gabapentin 400 mg Capsule PO ×2 (14:24→21:05)
[2021-08-21] MEDS: ropinirole 2 mg Tablet 4 MG PO (14:24)
[2021-08-21] MEDS: ipratropium-albuterol 3 mL Neb INHALATION ×2 (14:26→20:54)
[2021-08-21 14:46] LABS: Add Urine Microscopic? NO; Charge for UA Resulting for Rev
[2021-08-21 14:48] LABS: D Dimer 3.05 ug/mIFEU (0-0.59)
[2021-08-21 14:57] LABS: Bilirubin Urine Neg (Negative); Blood Urine Neg (Negative); Glucose Urine UA Norm (Normal); Ketones Urine Negative (Negative); Leukocyte Esterase Urine Negative (Negative); Nitrate Urine Negative (Negative); Protein Urine Neg (Negative); Sulfosalicylic Acid Urine Negative (Negative); Urine Appearance Clear (CLEAR); Urine Color Yellow (Yellow); Urobilinogen Urine Norm (Negative); pH Urine 8 (5-7)
--- NOTE | 2021-08-21 16:12 | PM.PN ---
Subjective Subjective: Interval history: Admitted overnight. On examination today patient lying in bed on 3 L oxygen supplementation saturating 93%. At home she is chronically on 2 L. Complaining of back pain and hip pain. She states she is on chronic pain medication. She states she takes [place] 10 3 times a day, does not usually take Valium though has been prescribed, takes Requip and gabapentin. Currently denies any nausea vomiting, headache. T-max since admission 99.8 earlier today morning. Vitals/I&O/Wt Last Vital Signs Temp 98.1 F 08/21/21 15:44 Pulse 97 08/21/21 15:44 Resp 17 08/21/21 15:44 BP 109/65 08/21/21 15:44 Pulse Ox 93 08/21/21 15:44 08/21/21 08/21/21 08/21/21 06:59 14:59 22:59 Intake Total 50 / 50 420 / 420 Output Total 0 / 0 Balance 50 / 50 420 / 420 Weight last 48 hrs Weight 90.945 kg Weight 90.718 kg Physical Exam Narrative: EXAM NARRATIVE: General: AOx3, in acute distress because of pain, on 3 L oxygen supplementation, no pallor, no icterus HEENT: PERRLA, pupils bilaterally equal and reactive Chest: Bilateral bronchial breath sounds, occasional rhonchi all over the lung [place], occasional coarse crackles present in left lower zone, equal good air entry bilaterally CVS: S1-S2 regular, no murmurs, no tachycardia, no gallops, no rubs Abdomen: Soft, nontender, no organomegaly, bowel sounds present Neuro: No focal deficits, no facial deformity, AO x3, power 5/5 in all limbs Data : 08/21/21 02:30 08/21/21 02:30 Micro: Microbiology 08/21/21 14:20 Legionella Urinary Antigen - Final Urine,Voided 08/20/21 22:45 Blood Culture - Preliminary Blood SPECIMEN COLLECTED 08/20/21 22:20 Blood Culture - Preliminary Blood SPECIMEN COLLECTED A&P Assessment and plan (1) Sepsis: Status: Acute Qualifiers: Sepsis type: sepsis due to unspecified organism Sepsis acute organ dysfunction status: with acute organ dysfunction Severe sepsis acute organ dysfunction type: acute respiratory failure Acute respiratory failure type: with hypoxia Severe sepsis shock status: without septic shock Qualified Code(s): A41.9 - Sepsis, unspecified organism; R65.20 - Severe sepsis without septic shock; J96.01 - Acute respiratory failure with hypoxia (2) Pneumonia: Status: Acute Qualifiers: Laterality: left Lung location: lower lobe of lung Pneumonia type: due to unspecified organism Qualified Code(s): J18.9 - Pneumonia, unspecified organism (3) Status post lumbar spine operation: Status: Acute (4) COPD (chronic obstructive pulmonary disease): Status: Acute Qualifiers: COPD type: unspecified COPD Qualified Code(s): J44.9 - Chronic obstructive pulmonary disease, unspecified Additional A&P Information Sepsis: Present on admission. Criteria met for leukocytosis, elevated lactate and fever. Most likely secondary to left lower lobe /hospital-acquired pneumonia. Patient was recently in hospital for back surgery last 2 weeks. Cannot rule out a secondary to recent lumbar spine surgery. Check MRSA swab, sputum culture. Urine Legionella, bacterial antigen awaited. Check procalcitonin. Blood cultures so far negative. Urinalysis awaited. For now continue with IV vancomycin, cefepime and azithromycin To cover for hospital-acquired and atypicals. COVID-19 PCR negative. Remove isolation precautions. Cannot rule out discitis related to recent back surgery though less likely. If patient remains persistently febrile, septic or has blood culture positive will pursue back imaging though alerted to soon for an abscess collection. Case discussed with Dr. Leone. Wound looks healthy. Wound care as per Dr. Leone. Check D-dimer. If elevated will do CTA pulmonary embolism study. COPD: DuoNebs every 6 hour, budesonide twice daily. Oxygen supplementation keeping saturation over 88%. Chronic pain medication: Continue with home dose of [place] 10 every 8 hours as needed, Requip as per home medication, gabapentin 400 mg times a day, diazepam 2.5 every 12 hourly as needed. CODE STATUS full code. Regular diet. Lovenox for DVT prophylaxis. Protonix for PUD prophylaxis. Physical therapy. Patient's care discussed in detail with patient and her sisters Ms. Head over the phone. All the questions were answered. Attestations Medical Necessity Statement*: Requires further hospitalization for management of sepsis, hospital-acquired pneumonia Time Spent in Patient Care: Greater than 35 minutes (>than 50% of time spent in counselling and/or direct pt care on unit). 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
--- NOTE | 2021-08-21 16:14 | CTR_ITS ---
PROCEDURE INFORMATION: Exam: CTA Chest With Contrast Exam date and time: 08/21/2021 4:14 PM Age: 61 years old Clinical indication: Abnormal findings; Abnormal diagnostic tests; Elevated d-dimer; Shortness of breath; Prior surgery; Surgery type: Gb, spine; Additional info: Shortness of breath, elevated d-dimer, pneumonia TECHNIQUE: Imaging protocol: Computed tomographic angiography of the chest with contrast. 3D rendering (Not supervised by radiologist): MIP and/or 3D reconstructed images were created by the technologist. Radiation optimization: All CT scans at this facility use at least one of these dose optimization techniques: automated exposure control; mA and/or kV adjustment per patient size (includes targeted exams where dose is matched to clinical indication); or iterative reconstruction. Contrast material: OMNI 350; Contrast volume: 79 ml; Contrast route: INTRAVENOUS (IV); COMPARISON: CR (CHEST, ) 08/20/2021 7:06 PM RADIATION DOSE METRICS: Total DLP (mGy-cm): 586.14 FINDINGS: Pulmonary arteries: Normal. No pulmonary emboli. Aorta: Atherosclerotic plaques of thoracic aorta. No aneurysm. No dissection. Lungs: Patchy nodular radiopaque lesions in the left upper lobe with spiculated/irregular margins. Dense consolidation throughout most of the left lower lobe. Left lower lobe volume loss changes as well with areas of lobar and segmental endobronchial occlusion. Hyperinflation of right lung. Pleural spaces: Unremarkable. No pneumothorax. No pleural effusion. Heart: Unremarkable. No cardiomegaly. No pericardial effusion. Lymph nodes: Mild diffuse mediastinal lymphadenopathy. Left paratracheal lymph node measures 1.7 cm x 1.5 cm. Bones/joints: Posterior epidural thoracic spine stimulator device in place. Partial visualization of thoracolumbar spine fusion.The thoracic spine demonstrates moderate degenerative changes at multiple levels. Soft tissues: Unremarkable. Other findings: Severe emphysema. CT/CT angio chest PE protcl [id number] IMPRESSION: 1. Negative for pulmonary embolism. 2. Airspace lesions throughout the left lung worse than comparison imaging. Favor multifocal bronchopneumonia. Radiation Dose CTDIVOL = (mGy): DLP = 586.14 (mGy-cm)
[2021-08-21] MEDS: iohexol 350 mg/mL 100 mL Btl IV (18:41)
[2021-08-21] MEDS: budesonide 0.5 mg/2 mL Neb INHALATION (20:54)
[2021-08-21] MEDS: ropinirole 2 mg Tablet 8 MG PO (21:06)
[2021-08-21 23:21] LABS: Vancomycin Trough 13.8 ug/mL (10-15)
[2021-08-22] VITALS (15 sets, daily range): BP systolic 109–128; BP diastolic 46–73; PULSE 91–104; RESP 14–20; TEMP 36.8–37.9; O2SAT 92–98
[2021-08-22] MEDS: vancomycin 1,000 MG in sodium chloride 0.9% 250 ML 250 MG IV ×2 (00:51→08:15)
[2021-08-22] MEDS: enoxaparin 40 mg/0.4 mL Syringe SUBCUT (00:57)
[2021-08-22] MEDS: morphine 4 mg/mL SDV 1 mL 2 MG IVP ×4 (01:04→17:10)
[2021-08-22 05:45] LABS: Basophils # 0.1 10^3/uL (0.0-0.1); Basophils % 0.2 %; Eosinophils # 0.6 10^3/uL (0.0-0.8); Eosinophils % 2.8 %; Hematocrit 31.1 % (37.0-47.0); Hemoglobin 9.4 g/dL (11.5-15.3); Lymphocytes # 0.7 10^3/uL (0.8-4.8); Lymphocytes % 3.1 %; Mean Corpuscular HGB Conc 30.2 g/dL (30.0-36.0); Mean Corpuscular Hemoglobin 29.6 pg (28.0-34.0); Mean Corpuscular Volume 97.8 fl (81-99); Mean Platelet Volume 8.7 fL (7.4-10.4); Monocytes % 4.8 %; Neutrophils % 86.9 %; Nucleated Red Blood Cells % 0 %; Platelet Count 439 10^3/cmm (130-400); Red Blood Count 3.18 10^6/uL (4.1-5.3); Red Cell Distribution Width 15.2 % (12.1-15.1); White Blood Count 21.1 10^3/uL (4.0-10.0)
[2021-08-22] MEDS: fluoxetine 10 mg Capsule PO (05:59)
[2021-08-22 06:12] LABS: Alanine Aminotransferase 9 U/L (0-33); Albumin Level 2.6 g/dL (3.5-5.2); Alkaline Phosphatase 146 IU/L (35-105); Anion Gap 11.1 (5-19); Aspartate Amino Transferase 9 U/L (0-32); Blood Urea Nitrogen 10 mg/dL (8-23); Calcium 7.7 mg/dL (8.5-10.5); Carbon Dioxide 29 mmol/L (22-29); Chloride 99 mmol/L (98-107); Globulin 2.6 g/dL (1.3-4.6); Glucose 109 mg/dL (65-115); Osmolality Calculated 280 mOsm/kg (285-295); Potassium 4.1 mmol/L (3.5-5.1); Sodium 135 mmol/L (136-145); Total Bilirubin 0.3 mg/dL (0.15-1.2); Total Protein 5.2 g/dL (6.6-8.7)
[2021-08-22 07:13] LABS: Procalcitonin 2.43 ng/mL (0-0.5)
[2021-08-22] MEDS: gabapentin 400 mg Capsule PO ×3 (08:15→20:21)
[2021-08-22] MEDS: pantoprazole DR 40 mg Tablet PO (08:15)
[2021-08-22] MEDS: azithromycin 250 mg Tablet 500 MG PO (08:15)
[2021-08-22] MEDS: ropinirole 2 mg Tablet 4 MG PO ×2 (08:15→14:17)
[2021-08-22] MEDS: budesonide 0.5 mg/2 mL Neb INHALATION ×2 (08:34→20:35)
[2021-08-22] MEDS: ipratropium-albuterol 3 mL Neb INHALATION ×3 (08:34→20:35)
[2021-08-22] MEDS: sodium chloride 0.9% 1,000 ML 75 ML IV (08:50)
--- NOTE | 2021-08-22 10:15 | PC.CHAP ---
Pastoral Care Encounter/Spiritual Assessment Type of Contact [] Declined cigarette packing machine operator visit [] Patient/Family/Request visit [] Outpatient visit [] Follow-up visit [] Physician referral [] Code/Alert [x] Routine visit [] Staff referral [] Actively dying [] Patient sleeping [] Family support [] [] Out of room [] Palliative care [] [] Receiving care in room [] Pre-surgical visit [] Trauma [] Long length of stay [] ICU visit [] Other: Relational/Emotional Strength [x] Patient feels connected with others/family/visitors/staff [] Distress [] Loneliness/isolation [] Abandonment Spirituality of Patient [x] Person of Sloane [] Attends Christian of their [place]lo[place] [x] Believes in Prayer [] Reads Bible or Mandaen materials [] There are Spiritual issues to be addressed Regulatory Leader Interventions [x] Prayer [x] Active listening [x] Non-anxious presence [] Spiritual/emotional support [] Crisis/trauma care [] Spiritual counseling [] Bereavement support [] Provided bereavement packet [] Provided Bible/devotional materials [] Provided toy/stuffed animal, coloring book to patient or family member [] Provided Communion [] Anointing/[place] [] Salvation [x] Completed spiritual assessment [] Other: Impact on Illness or Injury [] Angry [] Fearful [] Anxious [] Often cries [] Exhaustion [] Unable to work [] Unable to attend gnosticism [] Unable to walk/stand [] Unable to read [] Unable to drive [] Unable to eat/drink [] Unable to sleep [] Unable to be with family [] Patient intubated [] Other: Summary Time spent with patient 15 min
[2021-08-22] MEDS: cefepime 2,000 MG in sodium chloride 0.9% (plus) 50 ML 100 MG IV ×2 (10:54→22:59)
[2021-08-22] MEDS: HYDROcodone-acetaminophen 10-325 mg Tablet 1 TAB PO ×3 (11:20→20:21)
[2021-08-22 11:50] LABS: Iron 11 ug/dL (37-145); Percent Saturation 4.3 % (20-50); Thyroid Stimulating Hormone 0.84 uIU/mL (0.27-4.20); Total Iron Binding Capacity 253 mcg/dl; Unsaturated Iron Binding 242 ug/dL (112-347)
--- NOTE | 2021-08-22 12:46 | USCV_ITS ---
Nova Dobbs Age: 61 Gender: F : 1960 Exam Date: 08/22/2021 15:46 Ordering Phys: Zeb Wong MD Technologist: Marielle Alfredo Exam Location: [facility] [place] Indication: CHF BP: 119 / 68 HR: 93 Rhythm: Sinus Technical Quality: Adequate MEASUREMENTS (Male / Female) Normal Values 2D ECHO LV Diastolic Diameter PLAX 3.3 cm 4.2 - 5.9 / 3.9 - 5.3 cm LV Systolic Diameter PLAX 2.1 cm LV Chamber Size 2.9 cm IVS Diastolic Thickness 0.6 cm 0.6 - 1.0 / 0.6 - 0.9 cm IVS Systolic Thickness 1.8 cm LVPW Diastolic Thickness 3.2 cm 0.6 - 1.0 / 0.6 - 0.9 cm LVPW Systolic Thickness 1.3 cm RV Chamber Size 2.7 cm LVOT Diameter 2.0 cm LV Ejection Fraction 2D Teich 84.9 % LV Ejection Fraction MOD 2C 63.8 % LV Ejection Fraction 2C AL 64.5 % LA Diameter 3.2 cm LA Width 3.6 cm LA Height 4.4 cm RA Width 3.2 cm RA Height 4.3 cm Aorta at Sinotubular Diameter 2.4 cm M-MODE LV Diastolic Diameter MM 3.9 cm 4.2 - 5.9 / 3.9 - 5.3 cm LV Systolic Diameter MM 2.1 cm LV Ejection Fraction MM Teich 76.5 % IVS Diastolic Thickness MM 1.1 cm 0.6 - 1.0 / 0.6 - 0.9 cm IVS Systolic Thickness MM 1.7 cm LVPW Diastolic Thickness MM 1.3 cm 0.6 - 1.0 / 0.6 - 0.9 cm LVPW Systolic Thickness MM 1.9 cm RV Diastolic Diameter MM 1.7 cm Aortic Annulus Diameter 3.6 cm LA Ao Ratio MM 1.2 MV E Point Septal Separation 0.3 cm DOPPLER AV Peak Velocity 181.0 cm/s LVOT Peak Velocity 132.0 cm/s AV Area Cont Eq vti 2.5 cm squared AV Area Cont Eq pk 2.4 cm squared MV Area PHT 3.9 cm squared Mitral E to A Ratio 1.4 MV E' Velocity 77.5 cm/s Mitral E to MV E' Ratio 10.3 Mitral E to LV E' Lateral Ratio 11.1 Mitral E to LV E' Septal Ratio 9.7 TR Peak Velocity 287.1 cm/s TR Peak Gradient 33.0 mmHg TR Mean Velocity 223.7 cm/s TR Mean Gradient 22.3 mmHg TR Velocity Time Integral 69.9 cm TV Peak E Velocity 70.0 cm/s PV Peak Velocity 86.0 cm/s RV Acceleration Time 0.2 s RV Ejection Time 0.3 s RV AcT/ET 0.5 FINDINGS Left Ventricle Normal left ventricular cavity size. Normal left ventricular systolic function. No regional wall motion abnormalities. Left ventricular ejection fraction is estimated at 70 %. Grade II/IV diastolic dysfunction, moderately elevated filling pressures. Right Ventricle The right ventricle is normal in size and function. RVSP could not be calculated due to incomplete tricuspid regurgitation velocity profile. Right Atrium The right atrium is normal in size. Left Atrium The left atrium is normal in size. Mitral Valve Structurally normal mitral valve without significant stenosis or prolapse. There is trace mitral regurgitation. Aortic Valve Structurally normal aortic valve without significant sclerosis or stenosis. There is trace aortic regurgitation. Tricuspid Valve Structurally normal tricuspid valve without significant stenosis or regurgitation. Pulmonic Valve Structurally normal pulmonic valve without significant stenosis. There is no pulmonic regurgitation. Pericardium Normal pericardium without effusion. Aorta Normal ascending aorta dimension. CONCLUSIONS 1-Normal left ventricular cavity size. Normal left ventricular systolic function. No regional wall motion abnormalities. Left ventricular ejection fraction is estimated at 70 %. Grade II/IV diastolic dysfunction, moderately elevated filling pressures. 2-No significant valve abnormalities. 3-There is no pericardial effusion. 4-The right ventricle is normal in size and function. RVSP could not be calculated due to incomplete tricuspid regurgitation velocity profile. 5-Right atrial pressure is around 5 mm of mercury. 6-There are no prior echocardiogram studies to compare. Roni Cross MD (Electronically Signed) Final Date: 22 August 2021 19:28 S
[2021-08-22] MEDS: metroNIDAZOLE IV 500 MG/100 ML PREMIX 100 MG IV ×2 (14:17→20:22)
--- NOTE | 2021-08-22 15:35 | P.PN_ITS ---
Subjective Subjective: Interval history: No acute events overnight. On examination today patient seen with family at bedside. Currently on 3 L saturating 92%. T-max since yesterday 101.3 Fahrenheit last night. Patient states she is feeling better. Sitting up in chair. Denies any nausea vomiting, headache. Vitals/I&O/Wt Last Vital Signs Temp 99.1 F 08/22/21 12:00 Pulse 97 08/22/21 14:47 Resp 20 H 08/22/21 14:38 BP 109/64 08/22/21 12:00 Pulse Ox 92 08/22/21 14:38 08/22/21 08/22/21 08/22/21 06:59 14:59 22:59 Intake Total 300 / 2330 1490 / 1490 100 / 1590 Output Total 800 / 800 200 / 200 Balance -500 / 1530 1290 / 1290 100 / 1390 Weight last 48 hrs Weight 90.945 kg Weight 90.718 kg Physical Exam Narrative: EXAM NARRATIVE: General: AOx3, in acute distress because of pain, on 3 L oxygen supplementation, no pallor, no icterus HEENT: PERRLA, pupils bilaterally equal and reactive Chest: Bilateral bronchial breath sounds, occasional rhonchi all over the lung [place], occasional coarse crackles present in left lower zone, equal good air entry bilaterally CVS: S1-S2 regular, no murmurs, no tachycardia, no gallops, no rubs Abdomen: Soft, nontender, no organomegaly, bowel sounds present Neuro: No focal deficits, no facial deformity, AO x3, power 5/5 in all limbs Data : 08/22/21 05:20 08/22/21 05:20 Micro: Microbiology 08/21/21 13:13 Sputum Culture - Preliminary Sputum - Expectorated Sputum 08/21/21 05:20 Blood Culture - Preliminary Blood SPECIMEN COLLECTED 08/21/21 05:23 Blood Culture - Preliminary Blood SPECIMEN COLLECTED 08/20/21 22:45 Blood Culture - Preliminary Blood NEGATIVE TO DATE 08/20/21 22:20 Blood Culture - Preliminary Blood NEGATIVE TO DATE 08/21/21 14:20 Bacterial Antigens - Final Urine,Clean Catch 08/21/21 14:20 Legionella Urinary Antigen - Final Urine,Voided A&P Assessment and plan (1) Sepsis: Status: Acute Qualifiers: Sepsis type: sepsis due to unspecified organism Sepsis acute organ dysfunction status: with acute organ dysfunction Severe sepsis acute organ dysfunction type: acute respiratory failure Acute respiratory failure type: with hypoxia Severe sepsis shock status: without septic shock Qualified Code(s): A41.9 - Sepsis, unspecified organism; R65.20 - Severe sepsis without septic shock; J96.01 - Acute respiratory failure with hypoxia (2) Pneumonia: Status: Acute Qualifiers: Laterality: left Lung location: lower lobe of lung Pneumonia type: due to unspecified organism Qualified Code(s): J18.9 - Pneumonia, unspecified organism (3) Status post lumbar spine operation: Status: Acute (4) COPD (chronic obstructive pulmonary disease): Status: Acute Qualifiers: COPD type: unspecified COPD Qualified Code(s): J44.9 - Chronic obstructive pulmonary disease, unspecified Additional A&P Information Sepsis: Present on admission. Criteria met for leukocytosis, elevated lactate and fever. Most likely secondary to left lower lobe /hospital-acquired pneumonia. Patient was recently in hospital for back surgery last 2 weeks. Cannot rule out a secondary to recent lumbar spine surgery. Appreciate CT chest results. Pro-Yakov elevated. MRSA swab awaited, sputum culture awaited. Bacterial antigen, urine Legionella, blood cultures so far negative. Repeat blood culture sent when fever more than 101.3. Stop azithromycin. Continue vancomycin and cefepime. Add Flagyl for anaerobic coverage given possibility of aspiration pneumonia with CT changes. COVID-19 PCR negative. Remove isolation precautions. Cannot rule out discitis related to recent back surgery though less likely. If patient remains persistently febrile, septic or has blood culture positive will pursue back imaging though alerted to soon for an abscess collection. Case discussed with Dr. Leone. Wound looks healthy. Wound care as per Dr. Leone. COPD: DuoNebs every 6 hour, budesonide twice daily. Oxygen supplementation keeping saturation over 88%. Chronic pain medication: Continue with home dose of [place] 10 every 8 hours as needed, Requip as per home medication, gabapentin 400 mg times a day, diazepam 2.5 every 12 hourly as needed. CODE STATUS full code. Regular diet. Lovenox for DVT prophylaxis. Protonix for PUD prophylaxis. Physical therapy. Stop IV fluids. Patient's care discussed with her sister at bedside. All the questions were answered. Attestations Medical Necessity Statement*: Requires further hospitalization for management of sepsis secondary to most likely hospital-acquired pneumonia in setting of recent back surgery Time Spent in Patient Care: Greater than 35 minutes (>than 50% of time spent in counselling and/or direct pt care on unit) . Coding Level of Care Code Acute Emergency Registrar for g Fwd Diagnoses Sepsis A41.9; R65.20; J96.01 Sepsis type: sepsis due to unspecified organism Sepsis acute organ dysfunction status: with acute organ dysfunction Severe sepsis acute organ dysfunction type: acute respiratory failure Acute respiratory failure type: with hypoxia Severe sepsis shock status: without septic shock Pneumonia J18.9 Laterality: left Lung location: lower lobe of lung Pneumonia type: due to unspecified organism Status post lumbar spine operation Z98.890 COPD (chronic obstructive pulmonary disease) J44.9 COPD type: unspecified COPD
[2021-08-22] MEDS: vancomycin 1,250 MG/250 ML PIGGYBACK 200 MG IV (16:55)
[2021-08-22] MEDS: ropinirole 2 mg Tablet 8 MG PO (20:21)
[2021-08-23] VITALS (27 sets, daily range): BP systolic 70–143; BP diastolic 42–79; PULSE 87–101; RESP 15–32; TEMP 36.7–38.2; O2SAT 93–98
[2021-08-23] MEDS: enoxaparin 40 mg/0.4 mL Syringe SUBCUT (00:25)
[2021-08-23] MEDS: vancomycin 1,250 MG/250 ML PIGGYBACK 200 MG IV ×2 (00:27→08:19)
[2021-08-23] MEDS: morphine 4 mg/mL SDV 1 mL 2 MG IVP ×4 (01:47→20:24)
[2021-08-23] MEDS: ipratropium-albuterol 3 mL Neb INHALATION ×4 (03:10→21:35)
[2021-08-23] MEDS: metroNIDAZOLE IV 500 MG/100 ML PREMIX 100 MG IV ×2 (03:27→11:21)
[2021-08-23] MEDS: HYDROcodone-acetaminophen 10-325 mg Tablet 1 TAB PO (04:53)
[2021-08-23] MEDS: fluoxetine 10 mg Capsule PO (05:30)
[2021-08-23 05:37] LABS: Basophils % 0.2 %; Eosinophils # 0.6 10^3/uL (0.0-0.8); Eosinophils % 3.2 %; Hematocrit 28.8 % (37.0-47.0); Hemoglobin 8.7 g/dL (11.5-15.3); Lymphocytes # 0.6 10^3/uL (0.8-4.8); Mean Corpuscular HGB Conc 30.2 g/dL (30.0-36.0); Mean Corpuscular Hemoglobin 29.5 pg (28.0-34.0); Mean Corpuscular Volume 97.6 fl (81-99); Mean Platelet Volume 9.5 fL (7.4-10.4); Monocytes # 1.4 10^3/uL (0.2-0.9); Monocytes % 6.8 %; Neutrophils # 16.86 10^3/uL (1.8-7.7); Neutrophils % 83.9 %; Nucleated Red Blood Cells % 0 %; Platelet Count 395 10^3/cmm (130-400); Red Blood Count 2.95 10^6/uL (4.1-5.3); White Blood Count 20.1 10^3/uL (4.0-10.0)
[2021-08-23 05:57] LABS: Alanine Aminotransferase 7 U/L (0-33); Albumin Level 2.6 g/dL (3.5-5.2); Alkaline Phosphatase 238 IU/L (35-105); Anion Gap 11.9 (5-19); Aspartate Amino Transferase 10 U/L (0-32); Blood Urea Nitrogen 10 mg/dL (8-23); Calcium 7.7 mg/dL (8.5-10.5); Carbon Dioxide 27 mmol/L (22-29); Chloride 100 mmol/L (98-107); Globulin 2.7 g/dL (1.3-4.6); Glucose 108 mg/dL (65-115); Osmolality Calculated 280 mOsm/kg (285-295); Potassium 3.9 mmol/L (3.5-5.1); Sodium 135 mmol/L (136-145); Total Bilirubin 0.3 mg/dL (0.15-1.2); Total Protein 5.3 g/dL (6.6-8.7)
--- NOTE | 2021-08-23 07:19 | P.PN_ITS ---
Subjective Subjective: Interval history: no back pain was sleeping when I walked in Vitals/I&O/Wt Last Vital Signs Temp 99.7 F H 08/23/21 04:00 Pulse 93 08/23/21 06:00 Resp 16 08/23/21 04:00 BP 129/75 08/23/21 04:00 Pulse Ox 96 08/23/21 04:00 08/22/21 08/23/21 08/23/21 22:59 06:59 14:59 Intake Total 1210 / 2700 760 / 3460 Output Total 350 / 550 400 / 950 Balance 860 / 2150 360 / 2510 Physical Exam Narrative: EXAM NARRATIVE: moving legs and toes no complaints Data : 08/23/21 04:35 08/23/21 04:35 Micro: Microbiology 08/21/21 05:23 Blood Culture - Preliminary Blood NEGATIVE TO DATE 08/21/21 05:20 Blood Culture - Preliminary Blood NEGATIVE TO DATE 08/21/21 13:14 MRSA Culture - Final Nose 08/21/21 13:13 Sputum Culture - Preliminary Sputum - Expectorated Sputum A&P Assessment and plan (1) Status post lumbar spine operation: continue current tx Status: Acute Attestations Medical Necessity Statement*: per primary service Coding Level of Care Code Acute Environmental Services Project Manager for Daquan Fwsherley Diagnoses Status post lumbar spine operation Z98.890
[2021-08-23] MEDS: azithromycin 250 mg Tablet 500 MG PO (08:19)
[2021-08-23] MEDS: ropinirole 2 mg Tablet 4 MG PO ×2 (08:19→14:17)
[2021-08-23] MEDS: pantoprazole DR 40 mg Tablet PO (08:19)
[2021-08-23] MEDS: gabapentin 400 mg Capsule PO ×3 (08:19→20:22)
[2021-08-23] MEDS: budesonide 0.5 mg/2 mL Neb INHALATION ×2 (09:26→21:35)
--- NOTE | 2021-08-23 10:47 | CT_ITS ---
WS: [id number] CT LUMBAR SPINE TECHNIQUE: Contrast-enhanced CT of the lumbar spine with coronal and sagittal reformatted images. CLINICAL INFORMATION: possible discitis/abscess- post op COMPARISON: None. DLP: 1891.[address] scans at [facility] use at least one of these dose optimization techniques: automated e xposure control; mA and/or kV adjustment per patient size (includes targeted exams where dose is matc hed to clinical indication); or iterative reconstruction. FINDINGS: Prior postoperative changes pedicle screw fixation T11-S1 with associated laminectomy defects. Simple appearing dorsal subcutaneous fluid collection likely postoperative appears slightly increased in si ze no abnormal enhancement.. Disc space narrowing with vacuum disc phenomenon worse at L3-L4 L4-L5 an d L5-S1. Alignment appears unchanged from previous. No evidence of discitis or osteomyelitis. Hardwar e appears stable. Spinal canal is patent. Stable spinal stimulator. Small left pleural effusion. Partially visualized b ilateral pelvocaliectasis or mild hydronephrosis appears progressed compared to previous. Slight retr olisthesis L3 on L4 and L4 on L5. Chronic erosive endplate changes L3-L4 L4-L5 is unchanged since Apr il 2020. Stable sacroiliac fixation screws. CT/CT lumbar spine w con [id number] IMPRESSION: 1. Prior postoperative changes as described above T11-S1 with sacroiliac fixat ion screws. Pedicle screw fixation with interconnecting rods. 2. Hardware appears stable and unchanged compared to previous. 3. Associated laminectomy defects. 4. Disc space narrowing with chronic appearing erosive endplate-type changes L 3-L5. 5. No evidence of acute discitis or osteomyelitis. 6. Spinal canal appears patent. 7. Mild bilateral hydronephrosis appears progressed compared to previous. 8. Stable spinal stimulator. 9. Dorsal subcutaneous simple appearing fluid collection slightly increased in the upper lumbar spine similar which may be dependent. No suspicious enhanceme nt.
--- NOTE | 2021-08-23 10:47 | CT_ITS ---
WS: [id number] CT THORACIC SPINE TECHNIQUE: Contrast-enhanced CT of the thoracic spine with coronal and sagittal reformatted images. CLINICAL INFORMATION: possible discitis/abscess- post op COMPARISON: August 11, 2021 DLP: 2249.[address] scans at [facility] use at least one of these dose optimization techniques: automated e xposure control; mA and/or kV adjustment per patient size (includes targeted exams where dose is matc hed to clinical indication); or iterative reconstruction. FINDINGS: Mild thoracolumbar curve. Disc space narrowing in the mid thoracic spine T5-T9. Pedicle screw fixatio n T11-S1 with pedicle screw fixation interconnecting rods. Dorsal spinal stimulator extending to T9. No high-grade central canal stenosis. Spinal canal appears patent. Associated laminectomy defects. Lo w-attenuation fluid along the surgical incision site in the dorsal subcutaneous soft tissues. This ap pears slightly increased compared to previous in the subcutaneous soft tissues, which may be due to d ependent fluid. No evidence of associated air or suspicious enhancement. Small left pleural effusion. Patchy pulmonary infiltrates throughout the left lung involving the left upper and left lower lobes appear progressed compared to August 21, 2020 Consistent with pneumonia. Slight patchy infiltrate right lower lobe partially visualized. Adrenal glands are normal. CT/CT thoracic spine w con [id number] IMPRESSION: 1. Recent postoperative changes pedicle screw fixation T11-S1 with laminectomy defects. Hardware appears unchanged from previous. 2. Small left pleural effusion with progressed pulmonary infiltrates throughou t the left lung consistent with pneumonia. This is progressed since August 21, 2021. 3. No evidence of discitis or osteomyelitis. 4. Dorsal simple appearing fluid collection along the incision site appears sl ightly progressed compared to August 11, 2021 small which may be due to depend ent fluid collection. No associated air or suspicious enhancement. 5. Spinal canal appears patent. 6. Stable spinal stimulator.
[2021-08-23] MEDS: FUROsemide 40 mg Tablet PO (11:18)
[2021-08-23] MEDS: cefepime 2,000 MG in sodium chloride 0.9% (plus) 50 ML 100 MG IV (11:19)
--- NOTE | 2021-08-23 13:10 | P.PN_ITS ---
Subjective Subjective: Interval history: No acute events overnight. Patient seen with sister at bedside. Currently on 2 L saturating 96%. Complaining of back pain. Denies any nausea, vomiting, headache. Laying in bed eating crackers. We did discuss to make sure that patient does not eat while laying down at home to avoid aspiration pneumonia. T-max in last 24 hours 100.3 Fahrenheit. Febrile today morning up to 99.8 Fahrenheit. Has remained hemodynamically stable. Vitals/I&O/Wt Last Vital Signs Temp 99.8 F H 08/23/21 11:50 Pulse 91 08/23/21 11:50 Resp 17 08/23/21 11:50 BP 91/60 08/23/21 11:50 Pulse Ox 95 08/23/21 11:50 08/22/21 08/23/21 08/23/21 22:59 06:59 14:59 Intake Total 1210 / 2700 760 / 3460 400 / 400 Output Total 350 / 550 400 / 950 Balance 860 / 2150 360 / 2510 400 / 400 Physical Exam Narrative: EXAM NARRATIVE: General: AOx3, in acute distress because of pain, on 3 L oxygen supplementation, no pallor, no icterus HEENT: PERRLA, pupils bilaterally equal and reactive Chest: Bilateral bronchial breath sounds, occasional rhonchi all over the lung [place], occasional coarse crackles present in left lower zone, equal good air entry bilaterally CVS: S1-S2 regular, no murmurs, no tachycardia, no gallops, no rubs Abdomen: Soft, nontender, no organomegaly, bowel sounds present Neuro: No focal deficits, no facial deformity, AO x3, power 5/5 in all limbs Data : 08/23/21 04:35 08/23/21 04:35 Micro: Microbiology 08/21/21 13:13 Sputum Culture - Preliminary Sputum - Expectorated Sputum Staphylococcus aureus 08/21/21 05:23 Blood Culture - Preliminary Blood NEGATIVE TO DATE 08/21/21 05:20 Blood Culture - Preliminary Blood NEGATIVE TO DATE 08/21/21 13:14 MRSA Culture - Final Nose A&P Assessment and plan (1) Sepsis: Status: Acute Qualifiers: Sepsis type: sepsis due to unspecified organism Sepsis acute organ dysfunction status: with acute organ dysfunction Severe sepsis acute organ dysfunction type: acute respiratory failure Acute respiratory failure type: with hypoxia Severe sepsis shock status: without septic shock Qualified Code(s): A41.9 - Sepsis, unspecified organism; R65.20 - Severe sepsis without septic shock; J96.01 - Acute respiratory failure with hypoxia (2) Pneumonia: Status: Acute Qualifiers: Laterality: left Lung location: lower lobe of lung Pneumonia type: due to unspecified organism Qualified Code(s): J18.9 - Pneumonia, unspecified organism (3) Status post lumbar spine operation: Status: Acute (4) COPD (chronic obstructive pulmonary disease): Status: Acute Qualifiers: COPD type: unspecified COPD Qualified Code(s): J44.9 - Chronic obstructive pulmonary disease, unspecified Additional A&P Information Sepsis: Present on admission. Criteria met for leukocytosis, elevated lactate and fever. Most likely secondary to left lower lobe /hospital-acquired pneumonia. Patient was recently in hospital for back surgery last 2 weeks. Cannot rule out a secondary to recent lumbar spine surgery. Patient has remained persistently febrile every day. White count still elevated. Will according to CT lumbar and thoracic spine with contrast to rule out discitis or abscess collection. MRSA swab positive, sputum culture consistent with staph aureus. Bacterial antigen, urine Legionella negative. Blood cultures so far negative. Stop azithromycin. For now continue with vancomycin, cefepime, Flagyl. If CT lumbar thoracic spine negative we will discontinue cefepime. Will change vancomycin as per sensitivities for staph aureus. Oxygen supplementation keeping saturation over 90%. COVID-19 ruled out with negative PCR. Echocardiogram done shows an EF of 70% with grade 2 diastolic dysfunction. Continue to hold off on IV fluids. Gave 40 mg oral Lasix. Patient takes daily Lasix at home. Will dose Lasix as per fluid status on daily basis. Recent back surgery: CT as above. Wound care as per Dr. Leone. Physical therapy. COPD: DuoNebs every 6 hour, budesonide twice daily. Chronic pain medication: Continue with home dose of [place] 10 every 8 hours as needed, Requip as per home medication, gabapentin 400 mg times a day, diazepam 2.5 every 12 hourly as needed. CODE STATUS full code. Regular diet. Lovenox for DVT prophylaxis. Protonix for PUD prophylaxis. Physical therapy. Patient's care discussed with her sister at bedside. All the questions were answered. Attestations Medical Necessity Statement*: Requires further hospitalization for management of sepsis most likely secondary to left lower lobe pneumonia while discitis in setting of recent back surgery is ruled out. Time Spent in Patient Care: Greater than 35 minutes (>than 50% of time spent in counselling and/or direct pt care on unit) . Coding Level of Care Code Acute Special Education Tutor for g Fwd Diagnoses Sepsis A41.9; R65.20; J96.01 Sepsis type: sepsis due to unspecified organism Sepsis acute organ dysfunction status: with acute organ dysfunction Severe sepsis acute organ dysfunction type: acute respiratory failure Acute respiratory failure type: with hypoxia Severe sepsis shock status: without septic shock Pneumonia J18.9 Laterality: left Lung location: lower lobe of lung Pneumonia type: due to unspecified organism Status post lumbar spine operation Z98.890 COPD (chronic obstructive pulmonary disease) J44.9 COPD type: unspecified COPD
[2021-08-23 16:17] LABS: Vancomycin Trough 23.1 ug/mL (10-15)
--- NOTE | 2021-08-23 16:58 | PC.NURSE ---
Doctor notified at this time of vital signs. New orders received to give 500 ml bolus of NS over 3 hours.
[2021-08-23] MEDS: sodium chloride 0.9% 500 ML 167 ML IV (17:21)
[2021-08-23] MEDS: nystatin 100,000 unit/mL UDC 5 mL 200000 UNIT PO ×2 (17:21→20:21)
--- NOTE | 2021-08-23 18:44 | PC.NURSE ---
Doctor Wong notified at this time of patients vital signs. New orders received to run the bolus over 1 hour and give tylenol. Recheck vital signs after bolus is given.
[2021-08-23] MEDS: acetaminophen 325 mg Tablet 650 MG PO (18:47)
--- NOTE | 2021-08-23 18:59 | PC.NURSE ---
Report to PLANT PROTECTION SUPERVISOR given at this time.
--- NOTE | 2021-08-23 19:50 | PC.NURSE ---
Arrived from Med Surg via bed, AO x4, no c/o at this time, required Levophed per order for bp 75/52
[2021-08-23] MEDS: ropinirole 2 mg Tablet 8 MG PO (20:23)
[2021-08-23] MEDS: vancomycin 1,000 MG in sodium chloride 0.9% 250 ML 250 MG IV (20:23)
[2021-08-23 20:40] LABS: Basophils # 0.1 10^3/uL (0.0-0.1); Basophils % 0.3 %; Eosinophils # 0.6 10^3/uL (0.0-0.8); Eosinophils % 3.6 %; Hematocrit 28.2 % (37.0-47.0); Hemoglobin 8.5 g/dL (11.5-15.3); Lymphocytes # 0.8 10^3/uL (0.8-4.8); Lymphocytes % 4.3 %; Mean Corpuscular HGB Conc 30.1 g/dL (30.0-36.0); Mean Corpuscular Hemoglobin 29.2 pg (28.0-34.0); Mean Corpuscular Volume 96.9 fl (81-99); Mean Platelet Volume 8.9 fL (7.4-10.4); Monocytes # 1.6 10^3/uL (0.2-0.9); Monocytes % 9.2 %; Neutrophils # 14.06 10^3/uL (1.8-7.7); Nucleated Red Blood Cells % 0 %; Platelet Count 365 10^3/cmm (130-400); Red Blood Count 2.91 10^6/uL (4.1-5.3); Red Cell Distribution Width 14.9 % (12.1-15.1); White Blood Count 17.4 10^3/uL (4.0-10.0)
[2021-08-23 21:13] LABS: Lactic Sepsis W/Reflex 0.8 mmol/L (0.5-2.2)
[2021-08-23 21:14] LABS: Alanine Aminotransferase 7 U/L (0-33); Albumin Level 2.2 g/dL (3.5-5.2); Alkaline Phosphatase 147 IU/L (35-105); Anion Gap 13.6 (5-19); Aspartate Amino Transferase 7 U/L (0-32); Blood Urea Nitrogen 8 mg/dL (8-23); Calcium 7.5 mg/dL (8.5-10.5); Carbon Dioxide 24 mmol/L (22-29); Chloride 99 mmol/L (98-107); Globulin 3.1 g/dL (1.3-4.6); Glucose 127 mg/dL (65-115); Osmolality Calculated 276 mOsm/kg (285-295); Potassium 3.6 mmol/L (3.5-5.1); Sodium 133 mmol/L (136-145); Total Bilirubin 0.2 mg/dL (0.15-1.2); Total Protein 5.3 g/dL (6.6-8.7)
[2021-08-24] VITALS (59 sets, daily range): BP systolic 82–128; BP diastolic 37–95; PULSE 80–120; RESP 12–41; TEMP 36.7–37.1; O2SAT 90–100
[2021-08-24] MEDS: enoxaparin 40 mg/0.4 mL Syringe SUBCUT (00:56)
--- NOTE | 2021-08-24 02:32 | PC.NURSE ---
REPORT Received report from ROVERTO Rouse. Pt resting in bed with eyes closed-- no s/s of distress. Levophed infusing at 0.5 mcg/min.
[2021-08-24] MEDS: morphine 4 mg/mL SDV 1 mL 2 MG IVP ×4 (03:14→20:28)
--- NOTE | 2021-08-24 03:16 | PC.NURSE ---
BATH BATHED WITH LINEN CHANGE. FAIZAN CARE AND NEW PULL UP APPLIED.
[2021-08-24] MEDS: ipratropium-albuterol 3 mL Neb INHALATION ×4 (03:27→21:37)
[2021-08-24] MEDS: vancomycin 1,000 MG in sodium chloride 0.9% 250 ML 250 MG IV ×3 (05:28→20:20)
[2021-08-24] MEDS: fluoxetine 10 mg Capsule PO (05:28)
[2021-08-24] MEDS: HYDROcodone-acetaminophen 10-325 mg Tablet 1 TAB PO ×2 (05:32→14:02)
[2021-08-24] MEDS: diazePAM 5 mg Tablet 2.5 MG PO (05:38)
[2021-08-24 06:27] LABS: Basophils # 0.1 10^3/uL (0.0-0.1); Basophils % 0.3 %; Eosinophils # 0.6 10^3/uL (0.0-0.8); Hematocrit 26.9 % (37.0-47.0); Hemoglobin 8.3 g/dL (11.5-15.3); Lymphocytes # 0.8 10^3/uL (0.8-4.8); Lymphocytes % 5.1 %; Mean Corpuscular HGB Conc 30.9 g/dL (30.0-36.0); Mean Corpuscular Volume 97.1 fl (81-99); Mean Platelet Volume 9.1 fL (7.4-10.4); Monocytes # 1.5 10^3/uL (0.2-0.9); Monocytes % 9.4 %; Neutrophils # 12.67 10^3/uL (1.8-7.7); Neutrophils % 79.6 %; Nucleated Red Blood Cells % 0 %; Platelet Count 377 10^3/cmm (130-400); Red Blood Count 2.77 10^6/uL (4.1-5.3); Red Cell Distribution Width 14.8 % (12.1-15.1); White Blood Count 15.9 10^3/uL (4.0-10.0)
--- NOTE | 2021-08-24 06:41 | PC.NURSE ---
LABS/ IV Insertion Pt refused AM labs and asked airport maintenance laborer to come back later. Nurse went to administer AM ABX and noticed pt had pulled out IV. New #20 PIV placed to LAC-- labs collected and sent to labs for processing Vancomycin infusing as ordered.
[2021-08-24 06:48] LABS: Alanine Aminotransferase 6 U/L (0-33); Albumin Level 2.4 g/dL (3.5-5.2); Alkaline Phosphatase 146 IU/L (35-105); Anion Gap 9.5 (5-19); Aspartate Amino Transferase 6 U/L (0-32); Blood Urea Nitrogen 6 mg/dL (8-23); Calcium 7.6 mg/dL (8.5-10.5); Carbon Dioxide 30 mmol/L (22-29); Chloride 100 mmol/L (98-107); Globulin 2.9 g/dL (1.3-4.6); Glomerular Filtration Rate 161.7 mL/min (90-130); Glucose 119 mg/dL (65-115); Osmolality Calculated 281 mOsm/kg (285-295); Potassium 3.5 mmol/L (3.5-5.1); Sodium 136 mmol/L (136-145); Total Bilirubin 0.3 mg/dL (0.15-1.2); Total Protein 5.3 g/dL (6.6-8.7)
[2021-08-24] MEDS: ropinirole 2 mg Tablet 4 MG PO ×2 (07:18→14:05)
[2021-08-24] MEDS: budesonide 0.5 mg/2 mL Neb INHALATION ×2 (07:54→21:37)
[2021-08-24] MEDS: acetaminophen 325 mg Tablet 650 MG PO (08:45)
[2021-08-24] MEDS: pantoprazole DR 40 mg Tablet PO (08:45)
[2021-08-24] MEDS: gabapentin 400 mg Capsule PO (08:45)
[2021-08-24] MEDS: levoFLOXacin 750 mg Tablet PO (08:45)
[2021-08-24] MEDS: nystatin 100,000 unit/mL UDC 5 mL 200000 UNIT PO ×4 (08:46→20:20)
--- NOTE | 2021-08-24 09:17 | CT_ITS ---
WS: [id number] CT ABDOMEN PELVIS TECHNIQUE: Noncontrast CT of the abdomen and pelvis with coronal and sagittal reformatted images. CLINICAL INFORMATION: pyelonephritis, possible kidney stone COMPARISON: CT lumbar August 11, 2021 and August 23, 2021 DLP: 1823.[address] scans at [facility] use at least one of these dose optimization techniques: automated e xposure control; mA and/or kV adjustment per patient size (includes targeted exams where dose is matc hed to clinical indication); or iterative reconstruction. FINDINGS: Small left pleural effusion with partial consolidation left lower lobe with air bronchograms. Finding s compatible with pneumonia. Slight subsegmental atelectasis right lower lobe. Hepatomegaly. Incidental hepatic cyst right hepatic lobe measuring 2.8 cm. Cholecystectomy clips. Nor mal GE junction. Normal noncontrast pancreas. Noncontrast spleen is normal. Adrenal glands are normal . Mild bilateral perinephric edema can be seen with renal insufficiency. Mild bilateral pelvocaliecta sis appears progressed since August 11, 2021. Interval clearing of the IV contrast since yesterday. Residual contrast in the bladder. No obstructing renal or ureteral calculi bilaterally. No free fluid in the pelvis. A few sigmoid diverticuli. No evidence of acute diverticulitis. Normal c aliber abdominal aorta. Prior postoperative changes pedicle screw fixation T11-S1 with sacroiliac fixation as previously desc ribed. Associated laminectomy defects. Postoperative fluid in the dorsal subcutaneous soft tissues CT/CT kidney stone [id number] IMPRESSION: 1. Small left pleural effusion with partial consolidation left lower lobe with air bronchograms compatible with pneumonia. 2. Hepatomegaly with right hepatic cyst measuring 2.8 cm. 3. Prior cholecystectomy. 4. Mild bilateral pelvocaliectasis with perinephric edema. This can be seen wi th renal insufficiency. Recommend correlation for urinary tract infection. 5. No obstructing renal or ureteral calculi. Excretion of the contrast from ye sterday. Residual contrast in the bladder. 6. Stable postoperative changes thoracolumbar fusion described above with post operative fluid in the subcutaneous soft tissues.
--- NOTE | 2021-08-24 09:42 | PM.PN ---
Subjective Subjective: Interval history: Ms Dobbs is resting comfortably this AM with Family present, she reports right hip pain that comes and goes, No back pain. Vitals/I&O/Wt Last Vital Signs Temp 98.8 F 08/24/21 00:00 Pulse 86 08/24/21 07:57 Resp 30 H 08/24/21 08:18 BP 111/54 08/24/21 06:30 Pulse Ox 96 08/24/21 07:57 08/23/21 08/24/21 08/24/21 22:59 06:59 14:59 Intake Total 249.77 / 649.77 1277.67 / 1927.44 Output Total 350 / 350 Balance 249.77 / 649.77 927.67 / 1577.44 Physical Exam Narrative: EXAM NARRATIVE: AO x3 incision c/d, Fires in all motor groups with 5/5 strength, calves supple, Data : 08/24/21 06:00 08/24/21 06:00 Micro: Microbiology 08/21/21 13:13 Sputum Culture - Final Sputum - Expectorated Sputum Methicillin Resis Staph Aureus 08/21/21 05:23 Blood Culture - Preliminary Blood NEGATIVE TO DATE 08/21/21 05:20 Blood Culture - Preliminary Blood NEGATIVE TO DATE A&P Assessment and plan (1) Greater trochanteric bursitis of right hip: Status: Acute (2) Fusion of spine: Continue to mobilize with PT as tolerated, No signs of back infection at this time. 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
[2021-08-24] MEDS: HYDROmorphone 1 mg/mL INJ 1 mL IVP ×2 (10:13→16:09)
[2021-08-24 10:35] LABS: Add Urine Microscopic? YES; Bilirubin Urine Neg (Negative); Blood Urine Neg (Negative); Glucose Urine UA Norm (Normal); Ketones Urine Negative (Negative); Leukocyte Esterase Urine Negative (Negative); Nitrate Urine Negative (Negative); Protein Urine Trace (Negative); Specific Gravity, Urine 1.015 (1.005-1.030); Urine Appearance Clear (CLEAR); Urine Color Yellow (Yellow); Urobilinogen Urine Norm (Negative); pH Urine 5 (5-7)
[2021-08-24 10:45] LABS: Add Urine Culture? No; Bacteria Urine TRACE /hpf; Mucus Urine TRACE /hpf
--- NOTE | 2021-08-24 11:03 | PC.SOCIAL ---
IMM update IMM updated with patient and sister at bedside. Copy Pg2 given. Verbalized an understanding. Initialled, dated, timed, and placed in chart.
--- NOTE | 2021-08-24 11:31 | XR_ITS ---
WS: [id number] Right knee, 2 views, 08/24/2021 Clinical Data: sepsis, knee pain Comparison: None. Findings: No fractures or dislocations are seen. The joint spaces are normal. The patella is intact. The soft t issues are unremarkable. No bone destruction or erosion is seen. XR/XR knee RT 1-2V [id number] Impression: Negative right knee.
--- NOTE | 2021-08-24 12:56 | PM.PN ---
Subjective Subjective: Interval history: In last 24 hours patient was moved to ICU last night for low blood pressures. She was on Levophed for around 4 hours till 2 AM. Today morning mean arterial pressure over 70. Patient in considerable pain early in the morning at back radiating to right groin and right knee. Denies any nausea, vomiting, headache, dizziness, diarrhea. Has maintained saturation over 90% on 3 L oxygen supplementation. T-max 100.8 yesterday evening. Vitals/I&O/Wt Last Vital Signs Temp 98.2 F 08/24/21 08:15 Pulse 96 08/24/21 09:45 Resp 20 H 08/24/21 10:13 BP 114/51 08/24/21 09:00 Pulse Ox 93 08/24/21 10:13 08/23/21 08/24/21 08/24/21 22:59 06:59 14:59 Intake Total 249.77 / 649.77 1277.67 / 1927.44 100 / 100 Output Total 350 / 350 Balance 249.77 / 649.77 927.67 / 1577.44 100 / 100 Physical Exam Narrative: EXAM NARRATIVE: General: AOx3, in acute distress because of pain, on 3 L oxygen supplementation, no pallor, no icterus HEENT: PERRLA, pupils bilaterally equal and reactive Chest: Bilateral bronchial breath sounds, occasional rhonchi all over the lung [place], occasional coarse crackles present in left lower zone, equal good air entry bilaterally CVS: S1-S2 regular, no murmurs, no tachycardia, no gallops, no rubs Abdomen: Soft, nontender, no organomegaly, bowel sounds present Neuro: No focal deficits, no facial deformity, AO x3, power 5/5 in all limbs Data : 08/24/21 06:00 08/24/21 06:00 Micro: Microbiology 08/21/21 13:13 Sputum Culture - Final Sputum - Expectorated Sputum Methicillin Resis Staph Aureus Laboratory Results Lumbar Spine CT 08/23/21 10:47 IMPRESSION: 1. Prior postoperative changes as described above T11-S1 with sacroiliac fixation screws. Pedicle screw fixation with interconnecting rods. 2. Hardware appears stable and unchanged compared to previous. 3. Associated laminectomy defects. 4. Disc space narrowing with chronic appearing erosive endplate-type changes L3-L5. 5. No evidence of acute discitis or osteomyelitis. 6. Spinal canal appears patent. 7. Mild bilateral hydronephrosis appears progressed compared to previous. 8. Stable spinal stimulator. 9. Dorsal subcutaneous simple appearing fluid collection slightly increased in the upper lumbar spine similar which may be dependent. No suspicious enhancement. Thoracic Spine CT 08/23/21 10:47 IMPRESSION: 1. Recent postoperative changes pedicle screw fixation T11-S1 with laminectomy defects. Hardware appears unchanged from previous. 2. Small left pleural effusion with progressed pulmonary infiltrates throughout the left lung consistent with pneumonia. This is progressed since August 21, 2021. 3. No evidence of discitis or osteomyelitis. 4. Dorsal simple appearing fluid collection along the incision site appears slightly progressed compared to August 11, 2021 small which may be due to dependent fluid collection. No associated air or suspicious enhancement. 5. Spinal canal appears patent. 6. Stable spinal stimulator. Abdomen/Pelvis CT 08/24/21 09:17 IMPRESSION: 1. Small left pleural effusion with partial consolidation left lower lobe with air bronchograms compatible with pneumonia. 2. Hepatomegaly with right hepatic cyst measuring 2.8 cm. 3. Prior cholecystectomy. 4. Mild bilateral pelvocaliectasis with perinephric edema. This can be seen with renal insufficiency. Recommend correlation for urinary tract infection. 5. No obstructing renal or ureteral calculi. Excretion of the contrast from yesterday. Residual contrast in the bladder. 6. Stable postoperative changes thoracolumbar fusion described above with postoperative fluid in the subcutaneous soft tissues. Knee X-Ray 08/24/21 11:31 Impression: Negative right knee. Microbiology 08/21/21 13:13 Sputum - Expectorated Sputum Sputum Culture - Final Methicillin Resis Staph Aureus 08/21/21 05:23 Blood Blood Culture - Preliminary NEGATIVE TO DATE 08/21/21 05:20 Blood Blood Culture - Preliminary NEGATIVE TO DATE 08/21/21 13:14 Nose MRSA Culture - Final 08/20/21 22:45 Blood Blood Culture - Preliminary NEGATIVE TO DATE 08/20/21 22:20 Blood Blood Culture - Preliminary NEGATIVE TO DATE 08/21/21 14:20 Urine,Clean Catch Bacterial Antigens - Final 08/21/21 14:20 Urine,Voided Legionella Urinary Antigen - Final A&P Assessment and plan (1) Sepsis: Status: Acute Qualifiers: Sepsis type: sepsis due to unspecified organism Sepsis acute organ dysfunction status: with acute organ dysfunction Severe sepsis acute organ dysfunction type: acute respiratory failure Acute respiratory failure type: with hypoxia Severe sepsis shock status: without septic shock Qualified Code(s): A41.9 - Sepsis, unspecified organism; R65.20 - Severe sepsis without septic shock; J96.01 - Acute respiratory failure with hypoxia (2) Pneumonia: Status: Acute Qualifiers: Laterality: left Lung location: lower lobe of lung Pneumonia type: due to unspecified organism Qualified Code(s): J18.9 - Pneumonia, unspecified organism (3) Status post lumbar spine operation: Status: Inactive (4) COPD (chronic obstructive pulmonary disease): Status: Acute Qualifiers: COPD type: unspecified COPD Qualified Code(s): J44.9 - Chronic obstructive pulmonary disease, unspecified Additional A&P Information Septic shock: Resolved currently. Keep mean artery pressure over 65. If needed can restart Levophed. Sepsis: Present on admission. Criteria met for leukocytosis, elevated lactate and fever. Most likely secondary to left lower lobe /hospital-acquired pneumonia. Patient was recently in hospital for back surgery last [address] lumbar and thoracic spine done yesterday. Reviewed with Dr. Leone. As per him no concerns for infection for now. We will continue close monitoring. Possibility of empyema given pleural effusion along pneumonia. Consulted Dr. Campbell for possible thoracentesis if pleural fluid significant on chest ultrasound. Patient does have possibility of collection behind right knee. Septic knee unlikely. Knee x-ray. Will consult Dr. Gomez for possible aspiration. Repeat UA. CT abdomen pelvis without contrast. Blood cultures so far negative. Sputum culture MRSA. Urine Legionella, bacterial antigen negative. Continue with vancomycin and imipenem. Keep saturation over 90%. COVID-19 ruled out with negative PCR. Echocardiogram done shows an EF of 70% with grade 2 diastolic dysfunction. Continue to hold off on IV fluids. Recent back surgery: CT as above. Wound care as per Dr. Leone. Physical therapy. COPD: DuoNebs every 6 hour, budesonide twice daily. Chronic pain medication: Continue with home dose of [place] 10 every 8 hours as needed, Requip as per home medication, gabapentin 400 mg times a day, diazepam 2.5 every 12 hourly as needed. We will add Dilaudid 1 mg IV every 6 hours as needed. CODE STATUS full code. Regular diet. Lovenox for DVT prophylaxis. Protonix for PUD prophylaxis. Physical therapy. Patient's care discussed in detail with her sister Ms. Head over the phone and miscarried at bedside. We discussed that patient has MRSA pneumonia with possibility of empyema versus right septic knee and that for now incision site looks healthy as per spine surgery team. All the questions were answered. Continue ICU care for today. Attestations Medical Necessity Statement*: Requires further hospitalization for evaluation and managementof septic shock, MRSA pneumonia while other source of infection are evaluated. Critical Care Time: The high probability of a clinically significant, sudden or life threatening deterioration of the patient's [pulmonology, ID] system(s) required my full and direct attention, intervention and personal management. The critical care time is as shown. 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 [facility] Diagnoses Sepsis A41.9; R65.20; J96.01 Sepsis type: sepsis due to unspecified organism Sepsis acute organ dysfunction status: with acute organ dysfunction Severe sepsis acute organ dysfunction type: acute respiratory failure Acute respiratory failure type: with hypoxia Severe sepsis shock status: without septic shock Pneumonia J18.9 Laterality: left Lung location: lower lobe of lung Pneumonia type: due to unspecified organism Status post lumbar spine operation Z98.890 COPD (chronic obstructive pulmonary disease) J44.9 COPD type: unspecified COPD
[2021-08-24] MEDS: gabapentin 400 mg Capsule 800 MG PO ×2 (14:05→20:19)
--- NOTE | 2021-08-24 15:20 | XR_ITS ---
WS: [id number] Portable AP upright chest, 08/24/2021 Clinical Data: pna Comparison: Portable chest, 08/20/2021. Findings: There is extensive left lung pulmonary opacity which is increased dramatically from 4 days ago. There is a patchy right lower lobe opacity also consistent with pneumonia. Monitor leads on the chest wall. The patient has an epidural stimulator ending in the lower thoracic dural space. Posterio r thoracic fusion is seen. On her leads are on the chest wall. XR/XR chest 1V portable [id number] Impression: 1. Increasing left lung opacity most consistent with worsening pneumonia. 2. Development of right lower lobe opacity which may be pneumonia.
--- NOTE | 2021-08-24 18:37 | NUR.SHIFT ---
Shift Note Frequent safety and comfort rounds continue. Orders and/or nursing care completed as indicated. Patient monitored for response to intervention and treatment(s). Education provided includes procedures, plan of care, lab results, medication dose and side effect education. Patient and sister verbalize understanding of teachings. Mrs. Dobbs has had some difficulty with pain management this shift. Patient states Dilaudid works best for pain control.
--- NOTE | 2021-08-24 18:55 | PC.NURSE ---
All charting by Reji Amador reviewed and confirmed.
--- NOTE | 2021-08-24 19:00 | PC.NURSE ---
BEGINNING OF SHIFT: PT AWAKENS EASILY AND FOLLOWS COMMANDS-- ORIENTED. ABLE TO VERBALIZE NEEDS AND USE CALL LIGHT. ASSESSMENT COMPLETE. 3 L nc WITH O2 SATS 92-93%. PT C/O PAIN 08/12 TO BACK-- WILL ADMINISTER MEDICATION ORDERED. ENCOURAGED PT TO AMBULATE TO CHAIR SO SHE CAN EAT HER DINNER-- PT REFUSED, ASKED FOR JUICE AND WENT BACK TO SLEEP
[2021-08-24 20:13] LABS: Vancomycin Trough 19.8 ug/mL (10-15)
[2021-08-24] MEDS: ropinirole 2 mg Tablet 8 MG PO (20:23)
[2021-08-25] VITALS (35 sets, daily range): BP systolic 92–155; BP diastolic 44–76; PULSE 71–129; RESP 16–34; TEMP 36.6–37.3; O2SAT 86–99
[2021-08-25] MEDS: enoxaparin 40 mg/0.4 mL Syringe SUBCUT
[2021-08-25] MEDS: ipratropium-albuterol 3 mL Neb INHALATION ×4 (02:56→20:40)
[2021-08-25 03:30] LABS: ABG PH Result 7.29 (7.35-7.45); Arterial Blood Gas Hematocrit 31.4 % (37-47); Blood Gas Allen Test Pos; Blood Gas Sample Site Radial, right; Blood Gas Sample Type Arterial; HCO3 ABG 30.7 mmol/L (22-26); Oxygen Device NC; PO2 ABG 67.7 mmHg (80.0-100.0)
[2021-08-25 03:32] LABS: ABG PCO2 63.4 mmHg (35-45)
--- NOTE | 2021-08-25 03:44 | XRR_ITS ---
PROCEDURE INFORMATION: Exam: XR Chest Exam date and time: 08/25/2021 3:44 AM Age: 61 years old Clinical indication: Shortness of breath; Prior surgery; Surgery type: Spinal stimulator; Patient HX: Continued decline in 02 saturation after being put on bipap. ; Additional info: Pna, increased o2 demands TECHNIQUE: Imaging protocol: XR of the chest. Views: 1 view. Total images: 1 COMPARISON: CR XR chest 1V portable [id number] 08/24/2021 3:18 PM FINDINGS: Tubes, catheters and devices: Intraspinal nerve stimulator electrodes noted. Lungs: Stable left pleuroparenchymal disease. Pleural spaces: No pneumothorax. Heart/Mediastinum: Heart size is stable when compared to the prior exam. Bones/joints: Partially visualized spinal fusion hardware noted. Osseous structures are unchanged from the prior exam. XR/XR chest 1V portable [id number] IMPRESSION: Stable left pleuroparenchymal disease. Radiation Dose CTDIVOL = (mGy): DLP = (mGy-cm)
--- NOTE | 2021-08-25 03:48 | PC.NURSE ---
INCREASED O2 DEMANDS PT LETHARGIC AND ASKS FOR DILAUDID WHEN AWAKENED. SHE STATES THE NORCO DID NOTHING-- BUT PATIENT HAS BEEN ASLEEP. HR INCREASED 120s-130s AND O2 SATS IN LOW 80s. INCREASED FROM 3 TO 6 L/MIN VIA NC NOTIFIED DR. FISH VIA SBAR. UPDATED ON FLUID STATUS, VITAL SIGNS, AND CURRENT ASSESSMENT. CXR, ABG AND LASIX ORDERED. HOLD IV PAIN MEDS FOR NOW.
[2021-08-25] MEDS: acetaminophen 325 mg Tablet 650 MG PO (03:59)
[2021-08-25] MEDS: FUROsemide 10 mg/mL SDV 2mL 20 MG IVP (03:59)
[2021-08-25] MEDS: diazePAM 5 mg Tablet 2.5 MG PO (04:22)
--- NOTE | 2021-08-25 04:48 | PC.NURSE ---
INTERVENTION BIPAP PLACED BY RT. PT FLAILING IN BED-- FLAT ON HER BACK. LEGS OUT OF BED WITHOUT REGARD FOR SAFETY. VERBAL REDIRECTION GIVEN. ASSISTED PATIENT UP TO THE RECLINER. PT DEMANDING IV PAIN MEDICATION-- STATES THAT NORCO AND TYLENOL DIDN'T DO SHIT. PRN VALIUM GIVEN.
--- NOTE | 2021-08-25 04:52 | PC.NURSE ---
RESPONSE PT RESTING IN RECLINER HR 100, O2 SAT 100%, R 18, BP 115/57. PT CALMLY RESTING WITH EYES CLOSED-- NO LONGER PULLING AT CABLES OR TRYING TO REMOVE BIPAP.
[2021-08-25 04:59] LABS: ABG PCO2 57.9 mmHg (35-45); ABG PH Result 7.35 (7.35-7.45); Arterial Blood Gas Hematocrit 26.4 % (37-47); Base Excess ABG 5.2 mmol/L (-2.0-2.0); Blood Gas Allen Test Pos; Blood Gas Sample Site Radial, right; Blood Gas Sample Type Arterial; HCO3 ABG 31.8 mmol/L (22-26); Oxygen Device BIPAP
[2021-08-25 05:14] LABS: Basophils % 0.3 %; Eosinophils # 0.2 10^3/uL (0.0-0.8); Eosinophils % 1.6 %; Hematocrit 27.9 % (37.0-47.0); Hemoglobin 8.2 g/dL (11.5-15.3); Lymphocytes # 0.8 10^3/uL (0.8-4.8); Lymphocytes % 5.3 %; Mean Corpuscular HGB Conc 29.4 g/dL (30.0-36.0); Mean Corpuscular Volume 98.6 fl (81-99); Mean Platelet Volume 9.2 fL (7.4-10.4); Monocytes # 1.9 10^3/uL (0.2-0.9); Monocytes % 13.3 %; Neutrophils # 10.72 10^3/uL (1.8-7.7); Neutrophils % 76.2 %; Nucleated Red Blood Cells % 0 %; Platelet Count 370 10^3/cmm (130-400); Red Blood Count 2.83 10^6/uL (4.1-5.3); White Blood Count 14.1 10^3/uL (4.0-10.0)
[2021-08-25] MEDS: vancomycin 1,000 MG in sodium chloride 0.9% 250 ML 250 MG IV ×3 (05:18→21:38)
[2021-08-25 05:43] LABS: Alanine Aminotransferase < 5 U/L (0-33); Albumin Level 2.6 g/dL (3.5-5.2); Alkaline Phosphatase 183 IU/L (35-105); Anion Gap 12.4 (5-19); Aspartate Amino Transferase 8 U/L (0-32); Blood Urea Nitrogen 5 mg/dL (8-23); Calcium 7.9 mg/dL (8.5-10.5); Carbon Dioxide 29 mmol/L (22-29); Chloride 100 mmol/L (98-107); Globulin 3.1 g/dL (1.3-4.6); Glomerular Filtration Rate 101.3 mL/min (90-130); Glucose 134 mg/dL (65-115); Osmolality Calculated 285 mOsm/kg (285-295); Potassium 3.4 mmol/L (3.5-5.1); Sodium 138 mmol/L (136-145); Total Bilirubin 0.2 mg/dL (0.15-1.2); Total Protein 5.7 g/dL (6.6-8.7)
--- NOTE | 2021-08-25 06:30 | PC.NURSE ---
INCONTINENT Intentional toileting provided. Pt appeared to have incontinent episode. Encouraged pt up to sit on bedside commode-- voided 700 mL
[2021-08-25] MEDS: budesonide 0.5 mg/2 mL Neb INHALATION ×2 (08:09→20:40)
[2021-08-25] MEDS: levoFLOXacin 750 mg Tablet PO (08:25)
[2021-08-25] MEDS: gabapentin 400 mg Capsule 800 MG PO ×3 (08:25→21:41)
[2021-08-25] MEDS: pantoprazole DR 40 mg Tablet PO (08:25)
[2021-08-25] MEDS: fluoxetine 10 mg Capsule PO (08:25)
[2021-08-25] MEDS: nystatin 100,000 unit/mL UDC 5 mL 200000 UNIT PO ×4 (08:25→21:42)
[2021-08-25] MEDS: ropinirole 2 mg Tablet 4 MG PO ×2 (08:26→14:32)
[2021-08-25] MEDS: fentaNYL 50 mcg Patch 1 PATCH TRANSDERMA (11:19)
[2021-08-25] MEDS: HYDROcodone-acetaminophen 10-325 mg Tablet 1 TAB PO ×3 (12:38→21:41)
--- NOTE | 2021-08-25 14:22 | PM.PN ---
Subjective Subjective: Interval history: Overnight patient had an episode of mild lethargy after getting Valium. ABG was done which showed mild hypercapnia after which she was placed on BiPAP intermittently. Today morning sitting up in recliner with family at bedside. Saturating 92% on 4 L oxygen supplementation. Has remained hemodynamically stable. T-max afebrile in 24 hours. Last fever more than 36 hours ago. Today patient states she has been taking steroids as an outpatient for last 2 to 3 weeks till few days prior to coming to the hospital this time. Steroid was started by her primary care provider perioperative. Vitals/I&O/Wt Last Vital Signs Temp 98.4 F 08/25/21 11:00 Pulse 88 08/25/21 12:30 Resp 30 H 08/25/21 12:30 BP 95/72 08/25/21 12:30 Pulse Ox 88 L 08/25/21 12:30 08/24/21 08/25/21 08/25/21 22:59 06:59 14:59 Intake Total 1076 / 1276 350 / 1626 200 / 200 Output Total 500 / 500 1000 / 1500 Balance 576 / 776 -650 / 126 200 / 200 Physical Exam Narrative: EXAM NARRATIVE: General: AOx3, in acute distress because of pain, on 3 L oxygen supplementation, no pallor, no icterus HEENT: PERRLA, pupils bilaterally equal and reactive Chest: Bilateral bronchial breath sounds, occasional rhonchi all over the lung [place], occasional coarse crackles present in left lower zone, equal good air entry bilaterally CVS: S1-S2 regular, no murmurs, no tachycardia, no gallops, no rubs Abdomen: Soft, nontender, no organomegaly, bowel sounds present Neuro: No focal deficits, no facial deformity, AO x3, power 5/5 in all limbs Data : 08/25/21 04:55 08/25/21 04:55 Micro: Microbiology 08/21/21 13:13 Sputum Culture - Final Sputum - Expectorated Sputum Methicillin Resis Staph Aureus A&P Assessment and plan (1) MRSA pneumonia: Status: Acute (2) Sepsis: Status: Acute Qualifiers: Sepsis type: sepsis due to unspecified organism Sepsis acute organ dysfunction status: with acute organ dysfunction Severe sepsis acute organ dysfunction type: acute respiratory failure Acute respiratory failure type: with hypoxia Severe sepsis shock status: without septic shock Qualified Code(s): A41.9 - Sepsis, unspecified organism; R65.20 - Severe sepsis without septic shock; J96.01 - Acute respiratory failure with hypoxia (3) Status post lumbar spine operation: Status: Inactive (4) COPD (chronic obstructive pulmonary disease): Status: Acute Qualifiers: COPD type: unspecified COPD Qualified Code(s): J44.9 - Chronic obstructive pulmonary disease, unspecified (5) Popliteal cyst: Status: Acute (6) Fusion of spine: Status: Acute Additional A&P Information Septic shock: Resolved currently. Keep mean artery pressure over 65. If needed can restart Levophed. Sepsis: Present on admission. Criteria met for leukocytosis, elevated lactate and fever. Most likely secondary to MRSA pneumonia. CT lumbar and thoracic spine done yesterday. Reviewed with Dr. Leone. As per him no concerns for infection for now. We will continue close monitoring. Possibility of empyema less likely as pleural effusion incidental on ultrasound and has been stable. Appreciate Dr. Campbell's recommendations. Less likely septic right knee given negative knee x-ray. Appreciate Dr. Gomez's recommendations. Blood cultures so far negative. Sputum culture MRSA. Urine Legionella, bacterial antigen negative. Continue with vancomycin, levofloxacin and imipenem. If patient remains afebrile for next 24 hours will discontinue meropenem. We will plan to continue vancomycin for at least 7 to 10 days. Oxygen supplementation keeping saturation over 90%. Strict pulmonary toilet with I-S and Acapella. Out of bed to chair. COVID-19 ruled out with negative PCR. Echocardiogram done shows an EF of 70% with grade 2 diastolic dysfunction. Continue to hold off on IV fluids. Recent back surgery: CT as above. Wound care as per Dr. Leone. Physical therapy. COPD: DuoNebs every 6 hour, budesonide twice daily. Chronic pain medication: Continue with home dose of [place] 10 every 6 hours as needed, Requip as per home medication, gabapentin 400 mg times a day, Stop Valium. Decrease Dilaudid to 0.5 every 6 hours as needed. Add fentanyl patch. CODE STATUS full code. Regular diet. Lovenox for DVT prophylaxis. Protonix for PUD prophylaxis. Physical therapy. Patient's care discussed in detail with her at bedside. We discussed it is very important for patient to be out of bed to chair, ambulate and do aggressive pulmonary toilet given significant MRSA pneumonia. We also discussed that she remains hemodynamically stable and afebrile for next 24 to 48 hours can plan to discharge on oral antibiotics. Transfer to [facility]. Attestations Medical Necessity Statement*: Requires further hospitalization for management of sepsis secondary to MRSA pneumonia. Time Spent in Patient Care: Greater than 35 minutes (>than 50% of time spent in counselling and/or direct pt care on unit). 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
--- NOTE | 2021-08-25 15:08 | PC.NURSE ---
Rounded with Dr. Wong and discussed SI and flutter valve use, change in pain medications; including addition of fentanyl patch and frequency change to [place] and Dilaudid. ordered transfer to second floor. Reported potassium level of 3.4, that patient reports she hasn't had a bowel movement in two days, and patient complaint of right foot hallux pain.
--- NOTE | 2021-08-25 15:12 | PC.NURSE ---
Ultrasound guided IV insertion done. 3 attempts. Right AC. Pt tolerated well.
[2021-08-25] MEDS: ketorolac 30 mg/mL INJ 15 MG IVP (15:19)
--- NOTE | 2021-08-25 15:23 | PC.NURSE ---
All charting by Reji Suazo from 0700 until 1500 reviewed and confirmed.
--- NOTE | 2021-08-25 16:16 | PC.NURSE ---
Patient transferred to [place] room 260-1. Patient resting comfortably in bed at time of transfer. Patient accompanied by Lyn Willingham RN, from ICU who floated to [place] floor.
--- NOTE | 2021-08-25 16:56 | PM.CONSULT ---
Providers/Reason For Consult Consulting Physician/Specialty*: Aidan Gomez MD; orthopedic surgery Reason for Consult*: Rule out infection right knee Attending Physician: Zeb Wong MD History of Present Illness History of Present Illness Nova Dobbs is a 61 year old female patient of [facility] who underwent an decompression of L3-S1 on August 06, 2021. Dr. Leone inspected her spine and felt that her incisions were clean. She was admitted to the hospitalist service for evaluation is the sepsis and suspected pneumonia. She was discharged on August 12, 2021 with a hospital course complicated only by anemia. She returned to the emergency room with on 1018 with a 5-day history of fever cough and shortness of breath. She was admitted to the hospital but the date of organism has been not identified. The patient has a long history of pain in the right knee. She describes years ago undergoing arthroscopic surgery for what sounds like a popliteal cyst. A Doppler ultrasound on 08/11/2021 revealed a small Huynh's cyst. Concerns were raised about possible sepsis in the right knee. Meds/Allergies Home Medications and Allergies Home Medications Medication Instructions Recorded Confirmed Last Taken Type fluoxetine 10 mg capsule 10 mg PO QAM 03/27/21 08/21/21 05/09/21 History furosemide 40 mg tablet 40 mg PO QAM 03/27/21 08/21/21 05/09/21 History gabapentin 400 mg capsule 800 mg PO TID 03/27/21 08/21/21 05/09/21 History ropinirole 4 mg tablet See Rx Instructions .ROUTE .COMPLEX 03/27/21 08/21/21 08/20/21 History estradiol 2 mg PO BEDTIME 08/01/21 08/21/21 Unknown History fluticasone propion-salmeterol 1 inh INHALATION BID 08/01/21 08/21/21 Unknown History [Wixela Inhub] potassium chloride 10 meq PO DAILY 08/01/21 08/21/21 Unknown History E0748 Bone growth stimulator #1 ea 08/03/21 08/21/21 Unknown Rx Spiriva Respimat 2 puff INHALATION DAILY 08/07/21 08/21/21 Unknown History albuterol sulfate 2 puff INHALATION Q4H PRN 08/07/21 08/21/21 Unknown History diazepam [Valium] 5 mg PO Q8H PRN #6 tab 08/12/21 08/21/21 Unknown Rx cetirizine [Zyrtec] 10 mg PO DAILY 08/21/21 08/21/21 Unknown History methocarbamol 750 mg PO TID PRN 08/21/21 08/21/21 08/19/21 History oxycodone-acetaminophen 1 - 2 tab PO Q4H PRN 08/21/21 08/21/21 Unknown History prednisone 20 mg PO BID 08/21/21 08/21/21 Unknown History Allergies Allergy/AdvReac Type Severity Reaction Status Date / Time latex Allergy ALGY-Irwiniste Verified 08/07/21 09:41 r Current Medications Current Medications Generic Name Dose Route Start Last Admin Trade Name Freq PRN Reason Stop Dose Admin Acetaminophen 650 mg 08/21/21 00:07 08/25/21 03:59 Acetaminophen 325 Mg Tablet PO 650 mg Q6H PRN Administration Mild/Mod Pain Or Temp >/= 101 Hydrocodone Bitart/Acetaminophen 1 tab 08/25/21 10:44 08/25/21 12:38 Hydrocodone-Acetaminophen 10-325 Mg Tablet PO 1 tab Q6H PRN Administration MODERATE PAIN Albuterol/Ipratropium 3 ml 08/21/21 15:00 08/25/21 14:14 Ipratropium-Albuterol 3 Ml Neb INHALATION 3 ml Q6H.RESPIRATORY URBAN Administration Budesonide 0.5 mg 08/21/21 20:00 08/25/21 08:09 Budesonide 0.5 Mg/2 Ml Neb INHALATION 0.5 mg BID.RESPIRATORY URBAN Administration Enoxaparin Sodium 40 mg 08/21/21 01:00 08/25/21 00:00 Enoxaparin 40 Mg/0.4 Ml Syringe SUBCUT 40 mg Q24H URBAN Administration Fentanyl 1 patch 08/25/21 10:45 08/25/21 11:19 Fentanyl 50 Mcg Patch TRANSDERMA 1 patch Q72H URBAN Administration Fluoxetine HCl 10 mg 08/22/21 06:00 08/25/21 08:25 Fluoxetine 10 Mg Capsule PO 10 mg QAM URBAN Administration Gabapentin 800 mg 08/24/21 09:00 08/25/21 14:32 Gabapentin 400 Mg Capsule PO 800 mg TID URBAN Administration Vancomycin HCl 1,000 mg/ 250 mls @ 250 mls/hr 08/23/21 21:00 08/25/21 13:40 Sodium Chloride IV Infused Q8H URBAN Infusion Imipenem/Cilastatin Sodium 500 100 mls @ 200 mls/hr 08/23/21 19:30 08/25/21 13:30 mg/ Sodium Chloride IV Infused Q6H URBAN Infusion Protocol Norepinephrine Bitartrate 4 mg 254 mls @ 0 mls/hr 08/23/21 19:00 08/24/21 03:00 / Dextrose IV 0 mcg/min .Q0M URBAN 0 mls/hr Titration Protocol Per Protocol Levofloxacin 750 mg 08/24/21 09:00 08/25/21 08:25 Levofloxacin 750 Mg Tablet PO 08/27/21 08:59 750 mg DAILY URBAN Administration Protocol Nystatin 200,000 unit 08/23/21 17:00 08/25/21 16:50 Nystatin 100,000 Unit/Ml Udc 5 Ml PO 200,000 unit QID URBAN Administration Pantoprazole Sodium 40 mg 08/21/21 09:00 08/25/21 08:[address] 40 Mg Tablet PO 40 mg DAILY URBAN Administration Ropinirole HCl 4 mg 08/21/21 15:00 08/25/21 14:32 Ropinirole 2 Mg Tablet PO 4 mg BID@0800,1500 URBAN Administration Ropinirole HCl 8 mg 08/21/21 21:00 08/24/21 20:23 Ropinirole 2 Mg Tablet PO 8 mg BEDTIME URBAN Administration PFSH Acute PFSH: Medical History (Updated 08/25/21 @ 17:03 by Aidan Gomez MD) COPD (chronic obstructive pulmonary disease) Encounter for chronic pain management Gall bladder disease Greater trochanteric bursitis of right hip Status post insertion of nerve stimulator 2019 Surgical History (Updated 08/24/21 @ 00:01 by ) History of section History of cholecystectomy History of hysterectomy History of spinal surgery History of tubal ligation Family History Other Cancer Diabetes Social History Smoking and tobacco status: former smoker Alcohol intake: former Marital status: Number of children: 2 service: No History of recent travel: No Female Reproductive History: Date of last menstrual period: 01/25/21 Vitals/I&O/Wt Last Vital Signs Temp 99.1 F 08/25/21 16:00 Pulse 84 08/25/21 16:00 Resp 18 08/25/21 16:00 BP 98/61 08/25/21 16:00 Pulse Ox 94 08/25/21 16:00 08/25/21 08/25/21 08/25/21 06:59 14:59 22:59 Intake Total 350 / 1626 450 / 450 200 / 650 Output Total 1000 / 1500 Balance -650 / 126 450 / 450 200 / 650 Physical Exam Narrative: EXAM NARRATIVE: On examination of the right knee there is no erythema or effusion. Her motion is from full extension to 130 degrees. Her patella tracks well. There is no cruciate or collateral ligament laxity. Data Imaging^: Xray Ortho: My impression: 2 views of the right knee are personally reviewed. Her joint spaces are well-preserved. I can see no significant effusions. There is no degenerative changes I can appreciate. Her bones have a normal trabecular pattern. A&P Assessment and plan (1) Right knee pain: There is nothing on her physical exam to suggest a septic right knee joint. There is really no fluid that I could aspirate. 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
--- NOTE | 2021-08-25 17:20 | PC.NURSE ---
Patient resting comfortably.
[2021-08-25] MEDS: ropinirole 2 mg Tablet 8 MG PO (21:42)
[2021-08-26] VITALS (7 sets, daily range): BP systolic 106–131; BP diastolic 64–74; PULSE 87–106; RESP 16–18; TEMP 36.5–37; O2SAT 91–95
[2021-08-26] MEDS: ipratropium-albuterol 3 mL Neb INHALATION (02:00)
[2021-08-26] MEDS: enoxaparin 40 mg/0.4 mL Syringe SUBCUT (03:01)
[2021-08-26] MEDS: HYDROcodone-acetaminophen 10-325 mg Tablet 1 TAB PO ×2 (03:01→10:26)
[2021-08-26] MEDS: vancomycin 1,000 MG in sodium chloride 0.9% 250 ML 250 MG IV (05:15)
[2021-08-26] MEDS: fluoxetine 10 mg Capsule PO (05:15)
[2021-08-26 05:59] LABS: Basophils % 0.3 %; Eosinophils # 0.4 10^3/uL (0.0-0.8); Eosinophils % 3.3 %; Hematocrit 27.5 % (37.0-47.0); Lymphocytes # 1.1 10^3/uL (0.8-4.8); Lymphocytes % 9.4 %; Mean Corpuscular HGB Conc 29.1 g/dL (30.0-36.0); Mean Corpuscular Hemoglobin 28.7 pg (28.0-34.0); Mean Corpuscular Volume 98.6 fl (81-99); Mean Platelet Volume 9.5 fL (7.4-10.4); Monocytes # 1.4 10^3/uL (0.2-0.9); Monocytes % 12.1 %; Neutrophils % 69.4 %; Nucleated Red Blood Cells % 0 %; Platelet Count 345 10^3/cmm (130-400); Red Blood Count 2.79 10^6/uL (4.1-5.3); White Blood Count 11.5 10^3/uL (4.0-10.0)
[2021-08-26 06:18] LABS: Alanine Aminotransferase 6 U/L (0-33); Albumin Level 2.3 g/dL (3.5-5.2); Alkaline Phosphatase 131 IU/L (35-105); Anion Gap 9.6 (5-19); Aspartate Amino Transferase 10 U/L (0-32); Blood Urea Nitrogen 6 mg/dL (8-23); Calcium 7.9 mg/dL (8.5-10.5); Carbon Dioxide 32 mmol/L (22-29); Chloride 103 mmol/L (98-107); Globulin 2.9 g/dL (1.3-4.6); Glomerular Filtration Rate 72.7 mL/min (90-130); Glucose 103 mg/dL (65-115); Osmolality Calculated 290 mOsm/kg (285-295); Potassium 3.6 mmol/L (3.5-5.1); Sodium 141 mmol/L (136-145); Total Bilirubin 0.2 mg/dL (0.15-1.2); Total Protein 5.2 g/dL (6.6-8.7)
[2021-08-26 06:43] LABS: Slide Review Slide Review Perform
[2021-08-26] MEDS: levoFLOXacin 750 mg Tablet PO (08:23)
[2021-08-26] MEDS: ropinirole 2 mg Tablet 4 MG PO (08:23)
[2021-08-26] MEDS: nystatin 100,000 unit/mL UDC 5 mL 200000 UNIT PO ×2 (08:23→12:18)
[2021-08-26] MEDS: gabapentin 400 mg Capsule 800 MG PO (08:23)
[2021-08-26] MEDS: pantoprazole DR 40 mg Tablet PO (08:24)
--- NOTE | 2021-08-26 10:24 | PC.SOCIAL ---
IMM Update Pg. 2 of IMM updated and reviewed with patient, who verbalized understanding. Copy provided.
--- NOTE | 2021-08-26 12:58 | PM.DCS ---
Discharge Providers Date of Admission: 08/21/21 00:09 Date of Discharge: August 26, 2021 Attending Provider at Admission: Elo Castillo MD Attending Provider at Discharge: Zeb Wong MD Consults: Spine surgery: Dr. Leone Pulmonology: Dr. Campbell Orthopedics: Dr. Gomez Diagnoses at Discharge Discharge Diagnosis (1) Right knee pain: Status: Acute Reason for Visit Reason for Visit: Chest Congestion Hospital Course Hospital Course Nova Dobbs is a 61 year old female with past medical history of COPD, chronic pain management followed by pain clinic as an outpatient on recent steroids for last 3 weeks as per primary care provider for possible COPD, recent T10 to pelvis spinal fusion and decompression L3-S1 on August 06, 2021, recently discharged on August 12, 2021 with recent hospital course complicated by anemia. Presents to the emergency room today complaining of 5 days of fever, increased cough, and increased dyspnea. Patient has a history of COPD, typically uses supplemental O2 and multiple inhalers at home. States that expectoration has not changed more than usual. Chest x-ray shows left lower lobe infiltrate. Patient was admitted to the hospital for further management of sepsis secondary to possible pneumonia. She was started on broad-spectrum antibiotics. During hospitalization patient remained persistently febrile for for 3 days and had persistent leukocytosis even though she was on appropriate antibiotics. Her oxygen supplementation requirement remained stable. Multiple other sources of infection were ruled out including discitis/osteomyelitis, possible right septic knee, pyelonephritis. Blood cultures remain negative. Echocardiogram was done which is negative for infective endocarditis. Patient even required ICU care transiently for 2 days with her being on Levophed for few hours as well. Sputum culture came back positive for MRSA. Patient did have mild pleural effusion for which pulmonology was consulted for possible thoracentesis but as pleural effusion on ultrasound was simple looking and continue to decrease in amount no thoracentesis was done. Patient responded well to high trough vancomycin dosage and has been afebrile for last 3 days with resolving of leukocytosis with white count coming down to 11,000. Patient has been working well with physical therapy. During hospitalization it was difficult to manage patient's pain for which multiple pain medications were adjusted. Patient did have episodes of confusion with Valium which was subsequently stopped. She has been discharged in hemodynamically stable condition with advised to take linezolid twice daily for next 5 days, levofloxacin for 3 more days. She is advised to follow-up with a primary care provider within next 1 week, outpatient aquatic instructor within next 1 week and to make an appointment with her pain clinic for further management of chronic pain. She has been advised to stop Valium and prednisone. Safe discharge plan were discussed with the patient and she decided to go home with her care/primary caregiver. Patient will follow up with Dr. Leone as an outpatient for further evaluation for from recent back surgery. Physical Exam Narrative: EXAM NARRATIVE: General: AOx3, in acute distress because of pain, on 3 L oxygen supplementation, no pallor, no icterus HEENT: PERRLA, pupils bilaterally equal and reactive Chest: Bilateral bronchial breath sounds, occasional rhonchi all over the lung [place], occasional coarse crackles present in left lower zone, equal good air entry bilaterally CVS: S1-S2 regular, no murmurs, no tachycardia, no gallops, no rubs Abdomen: Soft, nontender, no organomegaly, bowel sounds present Neuro: No focal deficits, no facial deformity, AO x3, power 5/5 in all limbs Discharge Data Data Completed and Pending: Completed Studies During Hospitalization Category Date Time Status CT angio chest PE protcl [id number] Rout ine Cat Scan 08/21/21 16:[address] kidney stone 7 [id number] Routine Cat Scan 08/24/21 09:[address] lumbar spine w con [id number] Routine Cat Scan 08/23/21 10:[address] thoracic spine w con [id number] Routi ne Cat Scan 08/23/21 10:47 Completed XR chest 1V mallorie ble [id number] Routine Exams 08/24/21 15:20 Completed XR chest 1V mallorie ble [id number] Stat Exams 08/20/21 18:25 Completed XR chest 1V mallorie ble [id number] Stat Exams 08/25/21 03:44 Completed XR knee RT 1-2V 7 3560 Routine Exams 08/24/21 11:31 Completed CV. echo complete * [id number] Routine Ultrasound 08/22/21 12:46 Completed Pending at discharge Category Date Time Status Blood Culture Sta t Lab 08/21/21 05:20 Results Clostridioides Di fficile PCR Routin e Lab 08/23/21 22:30 Uncollected Enteric Bacterial Panel by PCR Rout ine Lab 08/23/21 22:30 Uncollected Labs from last 24 hours 1008/26/21 08/26/21 12:02 05:23 05:23 WBC 11.5 H RBC 2.79 L Hgb 8.0 L Hct 27.5 L MCV 98.6 MCH 28.7 MCHC 29.1 L RDW 15.0 Plt Count 345 MPV 9.5 Neut % (Auto) 69.4 Lymph % (Auto) 9.4 [place] % (Auto) 12.1 Eos % (Auto) 3.3 Baso % (Auto) 0.3 Neut # (Auto) 8.00 H Lymph # (Auto) 1.1 [place] # (Auto) 1.4 H Eos # (Auto) 0.4 Baso # (Auto) 0.0 Nucleated RBC % (a uto) 0 Nucleated RBCs # 0.0 Sodium 141 Potassium 3.6 Chloride 103 Carbon Dioxide 32 H Anion Gap 9.6 BUN 6 L Creatinine 0.8 GFR Calculation 72.7 L Glucose 103 Calculated Osmolal ity 290 Calcium 7.9 L Total Bilirubin 0.2 AST 10 ALT 6 Alkaline Phosphata se 131 H Total Protein 5.2 L Albumin 2.3 L Globulin 2.9 Vancomycin Trough 32.0 H* Addt'l Data from Hospital Stay: Laboratory Results WBC 11.5 10^3/uL (4.0 -10.0) H 08/26/21 05:23 RBC 2.79 10^6/uL (4.1 -5.3) L 08/26/21 05:23 Hgb 8.0 g/dL (11.5-15 .3) L 08/26/21 05:23 Hct 27.5 % (37.0-47.0 ) L 08/26/21 05:23 MCV 98.6 fl (81-99) 08/26/21 05:23 MCH 28.7 pg (28.0-34. 0) 08/26/21 05:23 MCHC 29.1 g/dL (30.0-3 6.0) L 08/26/21 05:23 RDW 15.0 % (12.1-15.1 ) 08/26/21 05:23 Plt Count 345 10^3/cmm (130 -400) 08/26/21 05:23 MPV 9.5 fL (7.4-10.4) 08/26/21 05:23 Neut % (Auto) 69.4 % 08/26/21 05:23 Lymph % (Auto) 9.4 % 08/26/21 05:23 [place] % (Auto) 12.1 % 08/26/21 05:23 Eos % (Auto) 3.3 % 08/26/21 05:23 Baso % (Auto) 0.3 % 08/26/21 05:23 Neut # (Auto) 8.00 10^3/uL (1.8 -7.7) H 08/26/21 05:23 Lymph # (Auto) 1.1 10^3/uL (0.8- 4.8) 08/26/21 05:23 [place] # (Auto) 1.4 10^3/uL (0.2- 0.9) H 08/26/21 05:23 Eos # (Auto) 0.4 10^3/uL (0.0- 0.8) 08/26/21 05:23 Baso # (Auto) 0.0 10^3/uL (0.0- 0.1) 08/26/21 05:23 Nucleated RBC % (a uto) 0 % 08/26/21 05:23 Nucleated RBCs # 0.0 /100WBC 08/26/21 05:23 D-Dimer 3.05 ug/mIFEU (0- 0.59) H 08/21/21 14:20 Specimen Type Arterial 08/25/21 05:00 Sample Site Radial, right 08/25/21 05:00 ABG pH 7.35 (7.35-7.45) 08/25/21 05:00 ABG pCO2 57.9 mmHg (35-45) H 08/25/21 05:00 ABG pO2 104.0 mmHg (80.0- 100.0) H 08/25/21 05:00 ABG HCO3 31.8 mmol/L (22-2 6) H 08/25/21 05:00 ABG Base Excess 5.2 mmol/L (-2.0- 2.0) H 08/25/21 05:00 Sha Test Pos 08/25/21 05:00 Hematocrit 26.4 % (37-47) L 08/25/21 05:00 O2 Delivery Device Bipap 08/25/21 05:00 O2 Liters/Min 6.0 % 08/25/21 03:15 FiO2 60.0 % 08/25/21 05:00 Relay Worker ID Agustín 08/25/21 05:00 Sodium 141 mmol/L (136-1 45) 08/26/21 05:23 Potassium 3.6 mmol/L (3.5-5 .1) 08/26/21 05:23 Chloride 103 mmol/L (98-10 7) 08/26/21 05:23 Carbon Dioxide 32 mmol/L (22-29) H 08/26/21 05:23 Anion Gap 9.6 (5-19) 08/26/21 05:23 BUN 6 mg/dL (8-23) L 08/26/21 05:23 Creatinine 0.8 mg/dL (0.5-0. 9) 08/26/21 05:23 GFR Calculation 72.7 mL/min (90-1 30) L 08/26/21 05:23 Glucose 103 mg/dL (65-115 ) 08/26/21 05:23 Calculated Osmolal ity 290 mOsm/kg (285- 295) 08/26/21 05:23 Lactic Acid 0.8 mmol/L (0.5-2 .2) 08/23/21 20:32 Lactate 4.8 mmol/L (0.5-2 .2) H* 08/21/21 02:30 Calcium 7.9 mg/dL (8.5-10 .5) L 08/26/21 05:23 Iron 11 ug/dL (37-145) L 08/22/21 05:20 TIBC 253 mcg/dl 08/22/21 05:20 % Saturation 4.3 % (20-50) L 08/22/21 05:20 Unsat Iron Binding 242 ug/dL (112-34 7) 08/22/21 05:20 Total Bilirubin 0.2 mg/dL (0.15-1 .2) 08/26/21 05:23 AST 10 U/L (0-32) 08/26/21 05:23 ALT 6 U/L (0-33) 08/26/21 05:23 Alkaline Phosphata se 131 IU/L (35-105) H 08/26/21 05:23 Troponin T Gen 5 n g/L 31 ng/L (0-10) H 08/20/21 19:50 Troponin T 120 Min [place] 28.84 ng/L (0-10) H 08/20/21 22:23 Delta Troponin T -2.16 ABS# (0-10) L 08/20/21 22:23 Troponin T Hi Sens 6Hr 24.67 ng/L (0-10) H 08/21/21 02:30 Troponin T Hi Sens 6Hr Delta -4.17 ng/L (0-12) L 08/21/21 02:30 Total Protein 5.2 g/dL (6.6-8.7 ) L 08/26/21 05:23 Albumin 2.3 g/dL (3.5-5.2 ) L 08/26/21 05:23 Globulin 2.9 g/dL (1.3-4.6 ) 08/26/21 05:23 Procalcitonin 2.43 ng/mL (0-0.5 ) H 08/22/21 05:20 TSH 0.84 uIU/mL (0.27 -4.20) 08/22/21 05:20 TSH Cancelled 08/22/21 05:20 Urine Color Yellow (Yellow) 08/24/21 10:15 Urine Appearance Clear (CLEAR) 08/24/21 10:15 Urine pH 5 (5-7) 08/24/21 10:15 Ur Specific Gravit y 1.015 (1.005-1.0 30) 08/24/21 10:15 Urine Protein Trace (Negative) 08/24/21 10:15 Urine Glucose (UA) Norm (Normal) 08/24/21 10:15 Urine Ketones Negative (Negati ve) 08/24/21 10:15 Urine Blood Neg (Negative) 08/24/21 10:15 Urine Nitrate Negative (Negati ve) 08/24/21 10:15 Urine Bilirubin Neg (Negative) 08/24/21 10:15 Prot Sulfosalicyli c Acd Negative (Negati ve) 08/21/21 14:20 Urine Urobilinogen Norm mg/dL (Negat miquel) 08/24/21 10:15 Ur Leukocyte Velvet ase Negative (Negati ve) 08/24/21 10:15 Urine RBC None /hpf (0-2) 08/24/21 10:15 Urine WBC None /hpf (0-5) 08/24/21 10:15 Ur Squamous Epith Cells 5-10 /hpf (0-5) H 08/24/21 10:15 Amorphous Sediment Not Reportable 08/24/21 10:15 Urine Bacteria Trace /hpf (NONE) 08/24/21 10:15 Urine Mucus Trace /hpf 08/24/21 10:15 Vancomycin Trough 32.0 ug/mL (10-15 ) H* 08/26/21 12:02 Nasal/Oral COVID-1 9 PCR Not detected 08/21/21 02:30 Influenza Type A A g Negative (Negati ve) 08/21/21 13:15 Influenza Type B A g Negative (Negati ve) 08/21/21 13:15 SARS-CoV-2 Ag (Rap id) Negative (Negati ve) 08/21/21 06:30 Impressions Chest CTA 08/21/21 16:14 IMPRESSION: 1. Negative for pulmonary embolism. 2. Airspace lesions throughout the left lung worse than comparison imaging. Favor multifocal bronchopneumonia. Radiation Dose CTDIVOL = (mGy): DLP = 586.14 (mGy-cm) Lumbar Spine CT 08/23/21 10:47 IMPRESSION: 1. Prior postoperative changes as described above T11-S1 with sacroiliac fixation screws. Pedicle screw fixation with interconnecting rods. 2. Hardware appears stable and unchanged compared to previous. 3. Associated laminectomy defects. 4. Disc space narrowing with chronic appearing erosive endplate-type changes L3-L5. 5. No evidence of acute discitis or osteomyelitis. 6. Spinal canal appears patent. 7. Mild bilateral hydronephrosis appears progressed compared to previous. 8. Stable spinal stimulator. 9. Dorsal subcutaneous simple appearing fluid collection slightly increased in the upper lumbar spine similar which may be dependent. No suspicious enhancement. Thoracic Spine CT 08/23/21 10:47 IMPRESSION: 1. Recent postoperative changes pedicle screw fixation T11-S1 with laminectomy defects. Hardware appears unchanged from previous. 2. Small left pleural effusion with progressed pulmonary infiltrates throughout the left lung consistent with pneumonia. This is progressed since August 21, 2021. 3. No evidence of discitis or osteomyelitis. 4. Dorsal simple appearing fluid collection along the incision site appears slightly progressed compared to August 11, 2021 small which may be due to dependent fluid collection. No associated air or suspicious enhancement. 5. Spinal canal appears patent. 6. Stable spinal stimulator. Abdomen/Pelvis CT 08/24/21 09:17 IMPRESSION: 1. Small left pleural effusion with partial consolidation left lower lobe with air bronchograms compatible with pneumonia. 2. Hepatomegaly with right hepatic cyst measuring 2.8 cm. 3. Prior cholecystectomy. 4. Mild bilateral pelvocaliectasis with perinephric edema. This can be seen with renal insufficiency. Recommend correlation for urinary tract infection. 5. No obstructing renal or ureteral calculi. Excretion of the contrast from yesterday. Residual contrast in the bladder. 6. Stable postoperative changes thoracolumbar fusion described above with postoperative fluid in the subcutaneous soft tissues. Knee X-Ray 08/24/21 11:31 Impression: Negative right knee. Chest X-Ray 08/25/21 03:44 IMPRESSION: Stable left pleuroparenchymal disease. Radiation Dose CTDIVOL = (mGy): DLP = (mGy-cm) Microbiology 08/20/21 22:45 Blood Blood Culture - Final NO GROWTH AFTER 5 DAYS 08/20/21 22:20 Blood Blood Culture - Final NO GROWTH AFTER 5 DAYS 08/21/21 13:13 Sputum - Expectorated Sputum Sputum Culture - Final Methicillin Resis Staph Aureus 08/21/21 05:23 Blood Blood Culture - Preliminary NEGATIVE TO DATE 08/21/21 05:20 Blood Blood Culture - Preliminary NEGATIVE TO DATE 08/21/21 13:14 Nose MRSA Culture - Final 08/21/21 14:20 Urine,Clean Catch Bacterial Antigens - Final 08/21/21 14:20 Urine,Voided Legionella Urinary Antigen - Final ECHOCARDIOGRAM CONCLUSIONS 1-Normal left ventricular cavity size. Normal left ventricular systolic function. No regional wall motion abnormalities. Left ventricular ejection fraction is estimated at 70 %. Grade II/IV diastolic dysfunction, moderately elevated filling pressures. 2-No significant valve abnormalities. 3-There is no pericardial effusion. 4-The right ventricle is normal in size and function. RVSP could not be calculated due to incomplete tricuspid regurgitation velocity profile. 5-Right atrial pressure is around 5 mm of mercury. 6-There are no prior echocardiogram studies to compare. Roni Cross MD (Electronically Signed) Final Date: 22 August 2021 19:28 Vitals: Last Vital Signs Temp 98.6 F 08/26/21 11:04 Pulse 106 H 08/26/21 11:04 Resp 16 08/26/21 11:04 BP 131/72 08/26/21 11:04 Pulse Ox 94 08/26/21 11:04 Discharge Plan Discharge Patient Disposition: Home Condition: Stable Prescriptions: New benzonatate 100 mg Capsule 100 mg PO TID PRN (Reason: Cough) Qty: 14 RF: 0 levofloxacin 750 mg Tablet 750 mg PO DAILY Qty: 3 RF: 0 nystatin 100,000 unit/mL Suspension 200,000 unit PO QID Qty: 200 RF: 0 Zyvox 600 mg tablet 600 mg PO BID 5 Days Qty: 10 RF: 0 Continued ropinirole 4 mg tablet See Rx Instructions .ROUTE .COMPLEX RF: 0 fluoxetine 10 mg capsule 10 mg PO QAM RF: 0 gabapentin 400 mg capsule 800 mg PO TID RF: 0 furosemide [Lasix] 40 mg tablet 40 mg PO QAM RF: 0 (DME) E0748 Bone growth stimulator See Rx Instructions .Route .MEDSUPPLY Qty: 1 RF: 0 potassium chloride 10 mEq tablet extended release 10 meq PO DAILY RF: 0 estradiol 2 mg tablet 2 mg PO BEDTIME RF: 0 fluticasone propion-salmeterol [Wixela Inhub] 100-50 mcg/dose blister with device 1 inh INHALATION BID RF: 0 albuterol sulfate 90 mcg/actuation HFA aerosol inhaler 2 puff INHALATION Q4H PRN (Reason: Shortness Of Breath) RF: 0 Spiriva Respimat 2.5 mcg/actuation mist 2 puff INHALATION DAILY RF: 0 Zyrtec 10 mg Tablet 10 mg PO DAILY RF: 0 methocarbamol 750 mg tablet 750 mg PO TID PRN (Reason: Muscle Spasm) RF: 0 Changed oxycodone-acetaminophen 10-325 mg tablet 1 tab PO Q6H PRN (Reason: Pain) Qty: 0 RF: 0 Discontinued diazepam [Valium] 5 mg tablet 5 mg PO Q8H PRN (Reason: muscle spasm) Qty: 6 RF: 0 prednisone 20 mg tablet 20 mg PO BID RF: 0 Discharge Orders: Discharge Order (Routine); Ordered 08/26/21 Ordered By: Zeb Wong Referrals: Montez Leone DO [Physician] - 2 weeks (Please call Friday to schedule a follow up appointment. ) Discharge Diet: Cardiac Discharge Activity: Resume usual activity Patient Instructions: Benzonatate (By mouth), Nystatin (By mouth), Levofloxacin (By mouth) (Levaquin, Levaquin Leva-nando), Linezolid (By mouth) (Zyvox), MRSA, Sepsis (IP), Pneumonia (GEN), Opioid Safety, Pneumonia Stoplight Activity Restrictions/Additional Instructions: Please follow-up with a primary care provider/outpatient aquatic instructor within next 1 week. Please follow-up with Dr. Leone on set appointment. Please take levofloxacin and linezolid which are the antibiotics as prescribed. Please continue to do strict pulmonary toilet with I-S and flutter valve going forward. Please follow-up with your outpatient pain doctor for further adjustment of pain medications. Valium has been stopped. Please do not take any prednisone for now. Discharge Attestations Time Spent in Discharge Care*: greater than 30 min Specific Discharge Activities: educating patient, educating and/or supporting family/caregiver, discussing with pcp/other providers, discussing with rehabilitation caseworker/social workers/dc planners, documenting/other paperwork and evaluating patient/reviewing data Status at Discharge: Cognitive status at discharge: cognitively intact, Behavioral status at discharge: cooperative, Functional status at discharge: uses cane/walker Overall status at discharge: patient is progressing back to baseline Quality Metrics Clinical Quality Measures During this hospital stay, did patient experience: None Coding Level of Care Code Acute [facility] DAVIN note Diagnoses Right knee pain M25.561
--- NOTE | 2021-08-27 11:00 | PC.SOCIAL ---
PA completed for Linezolid and approved. Approval through 08/27/2022 PA Case# [id number]. notified [facility] pharmacy in [place] and the script was verified that it went through.
== END 2021-08-26 14:31 | disposition home or self-care (01) | DRG 871 ==
LOC: ER 21:42 → MEDSURG 22:28 → ICU 08-23 19:53 → MEDSURG 08-25 15:47
PROVIDERS: Emergency Medicine; Admitting Provider Student in an Organized Health Care Education/Training Program; Emergency Provider Emergency Medicine; Visit Provider Student in an Organized Health Care Education/Training Program
DX: A41.9 Sepsis, unspecified organism (principal); J15.212 Pneumonia due to Methicillin resistant Staphylococcus aureus; J96.02 Acute respiratory failure with hypercapnia; J96.01 Acute respiratory failure with hypoxia; J44.0 Chronic obstructive pulmonary disease with (acute) lower respiratory infection; R65.20 Severe sepsis without septic shock; Z98.1 Arthrodesis status; Y95 Nosocomial condition; Z87.891 Personal history of nicotine dependence; Z99.81 Dependence on supplemental oxygen; M70.61 Trochanteric bursitis, right hip; I95.9 Hypotension, unspecified; G89.29 Other chronic pain; Z79.51 Long term (current) use of inhaled steroids; Z79.890 Hormone replacement therapy; M25.561 Pain in right knee
CPT/HCPCS: 36415; 36600; 71045; 71275; 72129; 72132; 73560; 74176; 80053; 80202; 81001; 81003; 82803; 83540; 83550; 83605; 84145; 84443; 84484; 85025; 85378; 86403; 87040; 87070; 87077; 87186; 87426; 87449; 87635; 87641; 87804; 93005; 93306; 94640; 94660; 96372; 97116; 97161; 97530; 99285; J0692; J0743; J1170; J1650; J1885; J1940; J2270; J3370; J7030; J7040; J7050; J7626; Q0144; Q9967; S0030

== ENCOUNTER → 2021-08-30 11:02 | Outpatient (BNVA) | payer MEDICARE, SELFPAY | PROVIDERS: Visit Provider Physician Assistant | DX: Z98.1 Arthrodesis status (principal) | CPT/HCPCS: 72100 ==

== ENCOUNTER → 2021-09-13 12:04 | Outpatient (BNVA) | payer MEDICARE, SELFPAY | PROVIDERS: Visit Provider Orthopaedic Surgery | DX: M43.26 Fusion of spine, lumbar region (principal); M47.9 Spondylosis, unspecified | CPT/HCPCS: 72100 ==